=== PATIENT | female | born 1975 | race Caucasian/White ===

== ENCOUNTER 2019-04-01 22:37 | Observation (INO) ==
[2019-04-01 23:06] LABS: Basophils # 0.1 K/mm3 (0-0.2); Basophils % 0.5 % (0.1-2.0); Eosinophils # 0.2 K/mm3 (0.0-0.4); Eosinophils % 1.3 % (0.1-12.0); Hematocrit 52.4 % (37.0-47.0); Hemoglobin 16.9 g/dL (12.2-16.2); Lymphocytes # 4.4 K/mm3 (0.7-4.5); Lymphocytes % 28.7 % (10-50); Mean Corpuscular HGB Conc 32.2 g/dL (31.8-35.4); Mean Corpuscular Volume 89.2 fl (81-99); Mean Platelet Volume 8.1 fl (7.4-10.4); Monocytes # 0.6 K/mm3 (0.1-1.0); Monocytes % 3.8 % (1.7-9.3); Neutrophils % 65.6 % (37.0-80.0); Platelet Count 343 K/mm3 (142-424); Red Blood Count 5.88 M/mm3 (4.20-5.40); Red Cell Distribution Width 12.7 % (11.5-17.5); White Blood Count 15.2 K/mm3 (4.8-10.8)
[2019-04-01 23:15] LABS: ABG Base Excess -5.8 mmol/L (-2.4-2.3); ABG HCO3 17.8 mmhg (22.0-26.0); ABG Oxygen Saturation 98 % (90-100); ABG PCO2 24.6 mmhg (35.0-45.0); ABG PH 7.48 mmol/L (7.35-7.45); ABG PO2 97.7 mmhg (80-100); ABG TCO2 18.5 mmhg (23-27)
[2019-04-01 23:17] LABS: Allen's Test Acceptable; Oxygen ROOM AIR %
--- NOTE | 2019-04-01 23:22 | Emergency Department Note ---
ED Disposition Clinical Impression: Severe sepsis, Tobacco use Community acquired pneumonia Qualifiers: Laterality: right Lung location: lower lobe of lung Qualified Code(s): J18.1 - Lobar pneumonia, unspecified organism Obesity Qualifiers: Obesity type: due to excess calories Obesity classification: adult class 3 (BMI >= 40) Serious obesity comorbidity presence: with serious comorbidity Body mass index: BMI 40.0-44.9 Qualified Code(s): E66.01 - Morbid (severe) obesity due to excess calories; Z68.41 - Body mass index (BMI) 40.0-44.9, adult Diabetes Qualifiers: Diabetes mellitus type: type 2 Diabetes mellitus fci insulin use: unspecified fci insulin use status Diabetes mellitus complication status: with other specified complication Qualified Code(s): E11.69 - Type 2 diabetes mellitus with other specified complication Disposition: Admitted As Inpatient Condition on Discharge: Good Referrals: Provider,Referral, MD [Primary Care Provider] - - Critical Care Critical Care Time: No Attestation: On 04/01/19, the high probability of a clinically significant, sudden or life threatening deterioration of the following system(s) required my full and direct attention, intervention and personal management. The time I documented below is in addition to time spent performing reported procedures but includes the following listed in this critical care notation. Medical Decision Making - Medical Records Medical records reviewed: Yes: I reviewed the patient's medical records. - Mikey Inquiry Pt receiving controlled substance: No Vital Signs: 04/01/19 22:38 04/01/19 23:11 04/01/19 23:28 Temperature 97.6 F 98.2 F Temperature Source Oral Oral Pulse Rate [Right Brachial] 146 H 127 H 120 H Respiratory Rate 15 17 18 Blood Pressure [Right Arm] 164/96 H 120/85 Blood Pressure Mean [Right Arm] 118 96 02 Sat by Pulse Oximetry 98 97 99 Oxygen Delivery Method Room Air Room Air Room Air 04/01/19 23:43 Temperature 98.8 F Temperature Source Oral Pulse Rate [Right Brachial] 132 H Respiratory Rate 15 Blood Pressure [Right Arm] 117/87 Blood Pressure Mean [Right Arm] 97 02 Sat by Pulse Oximetry 96 Oxygen Delivery Method Room Air - Lab Data Lab results reviewed: Yes: I reviewed the patient's lab results. Lab Results 04/01/19 22:52: WBC 15.2 H, RBC 5.88 H, Hgb 16.9 H, Hct 52.4 H, MCV 89.2, MCH 28.7, MCHC 32.2, RDW 12.7, Plt Count 343, MPV 8.1, Neut % (Auto) 65.6, Lymph % (Auto) 28.7, [place] % (Auto) 3.8, Eos % (Auto) 1.3, Baso % (Auto) 0.5, Neut # (Auto) 10.0 H, Lymph # (Auto) 4.4, [place] # (Auto) 0.6, Eos # (Auto) 0.2, Baso # (Auto) 0.1, Total Counted 100, Neutrophils % (Manual) 70, Band Neutrophils % 5.0, Lymphocytes % (Manual) 23, Monocytes % (Manual) 2, Platelet Estimate Normal, RBC Morphology Normal 04/01/19 22:52: Sodium 135 L, Potassium 3.8, Chloride 98, Carbon Dioxide 23, Anion Gap 17.8 H, BUN 13, Creatinine 1.07 H, Estimated Creat Clear 128, Estimated GFR 56 L, Est GFR ( Amer) 68, Glucose 371 H, Calcium 9.6, Total Bilirubin 0.5, AST 9 L, ALT 34, Alkaline Phosphatase 97, Troponin I < 0.02, Total Protein 7.7, Albumin 3.5, Globulin 4.2 H, Albumin/Globulin Ratio 0.8 L 04/01/19 22:52: Lactate 3.3 H 04/01/19 22:52: Serum HCG, Qual Negative 04/01/19 22:59: Specimen Source Right radial, O2 % Room air, ABG pH 7.48 H, ABG pCO2 24.6 L, ABG pO2 97.7, ABG HCO3 17.8 L, ABG Total CO2 18.5 L, ABG O2 Saturation 98, ABG Base Excess -5.8 L, Maximo Test Acceptable Result diagrams: 04/01/19 22:52 04/01/19 22:52 Orders (Tests/Meds): ED MEDICATIONS Generic Name Dose Route Start Last Admin Trade Name Freq PRN Reason Stop Dose Admin Sodium Chloride 1,000 mls @ 999 mls/hr 04/01/19 23:00 04/01/19 23:03 Sod Chlor 0.9% 1000ml Bag IV 04/02/19 00:00 999 mls/hr .Q1H1M TONY Administration Sodium Chloride 1,000 mls @ 999 mls/hr 04/01/19 23:00 04/01/19 23:02 Sod Chlor 0.9% 1000ml Bag IV 04/02/19 00:00 Not Given .Q1H1M TONY Ceftriaxone Sodium 1 gm/ 50 mls @ 100 mls/hr 04/01/19 23:45 04/01/19 23:45 Sodium Chloride IV 04/15/19 23:44 100 mls/hr Q24H TONY Administration Protocol Azithromycin 500 mg/ Sodium 250 mls @ 250 mls/hr 04/01/19 23:45 Chloride IV 04/15/19 23:44 Q24H TONY Protocol Sodium Chloride 3 ml 04/01/19 23:48 Sodium Chloride 3% 15ml [facility] 05/01/19 23:47 ONCE PRN INDUCE SPUTUM COLLECTION Discontinued Medications Generic Name Dose Route Start Last Admin Trade Name Freq PRN Reason Stop Dose Admin Albuterol/Ipratropium 3 ml 04/01/19 22:48 04/01/19 23:02 Duoneb 3ml [facility] 04/01/19 22:49 3 ml ONCE ONE Administration Methylprednisolone Sodium Succinate 125 mg 04/01/19 22:48 04/01/19 23:02 Solu-Medrol 125mg/2ml Vial IV 04/01/19 22:49 125 mg ONCE ONE Administration ORDERS Category Date Time Status XR chest 2V Stat Exams 04/01/19 22:46 Taken Hemoglobin A1C Stat Lab 04/01/19 22:52 Received Blood Culture Stat Micro 04/01/19 22:52 Received Sputum Culture & Gram Stain Stat Micro 04/01/19 23:48 Ordered ECG Request by /Nse Stat Y 04/01/19 22:46 Ordered - Radiology Data #1 Image(s): Chest Image Reviewed: Yes I reviewed the patient's radiology image Preliminary Findings: Abnormal (prob rt lower lobe) - ECG Data Tracing #1 Arrhythmias present: sinus tach Ischemic changes: non-specific ST-T wave changes - Physician Consults Physician Consulted: tati Reason -: Admission Resp/SOB HPI - General Chief Complaint: Shortness of Breath/Dyspnea Stated Complaint: SOB&Pain in back,weakness Time Seen by Provider: 04/01/19 23:00 Mode of Arrival: Ambulatory Source of Information: Patient, Relative, Medical Record Limitations: No Limitations Description of Symptoms (Recalled from ER Triage Doc. by RN): Reports SOB all weekend that has progressively gotten worse. Pt reports back pain and weakness as well. 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 -does use tob and has borderline diabetes MD Complaint: shortness of breath, cough Onset (ago): day(s) Severity: moderate Associated symptoms: cough Treatment prior to arrival: none - Related Data Home oxygen amount: none Home Medications Medication Instructions Recorded Confirmed No Known Home Medications 04/01/19 04/01/19 Allergies Allergy/AdvReac Type Severity Reaction Status Date / Time No Known Allergies Allergy Verified 06/12/18 10:19 [facility] History - Hepatitis A Screen Drug use history?: No High risk sexual behaviors?: No History of sexually transmitted infection?: No Currently employed?: No Childcare worker?: No Do you have indoor plumbing?: Yes Do you have electricity?: Yes Attestation statement:: This patient has been screened for Hepatitis A risk factors. I have reviewed the patient's past medical history: Yes Medical History: Denies:: Cancer, Diabetes Mellitus Type 1, Diabetes Mellitus Type 2, MRSA Laterality Cases: Bilateral: Myringotomy (Ear Tubes), Tonsillectomy Amputation: No - Social History Smoking Status: Current every day smoker Tobacco Type: cigarettes # Packs/Day (cigarettes): 1 Alcohol Intake: never Occupational Status: employed Housing: house Household Members: spouse, children ROS Obtained: Yes All systems reviewed & no additional complaints - Constitutional Constitutional: Reports as per HPI, Reports fatigue, Denies headache(s) - Eyes Eyes: Denies change in vision - ENT Ears, Nose, Mouth, and Throat: Denies sore throat - Cardiovascular Cardiovascular: Denies chest pain, Reports dyspnea - Respiratory Respiratory: Yes as per HPI, Yes cough, Yes non-productive cough, No coughing up blood - Gastrointestinal Gastrointestingal: Denies: vomiting - Genitourinary Female Genitourinary: Denies hematuria - Musculoskeletal Musculoskeletal: Denies joint pain, Denies neck pain - Integumentary/Breasts Skin/Breast: Denies rash - Neurologic Neurologic: Denies seizure-like activity Physical Exam - General General appearance: alert - Head Head exam: normocephalic - Eye Eye exam: Present: PERRL, EOMI - ENT ENT exam: Present: mucous membranes moist - Neck Neck exam: Present: trachea midline - Respiratory Respiratory exam: Present: normal lung sounds bilaterally. Absent: respiratory distress - Cardiovascular Cardiovascular exam: Present: tachycardia, systolic murmur. Absent: rubs - Abdominal Exam Abdominal exam: Present: soft - Extremities Exam Extremities exam: Present: full ROM. Absent: calf tenderness - Neurological Exam Neurological exam: Present: alert, oriented X3, CN II-XII intact - Psychiatric Psychiatric exam: Present: normal affect - Skin Skin exam: Absent: rash
[2019-04-01 23:24] LABS: Alanine Aminotransferase 34 U/L (12-78); Albumin Level 3.5 gm/dL (3.4-5.0); Albumin/Globulin Ratio 0.8 (1.1-1.8); Alkaline Phosphatase 97 U/L (46-116); Anion Gap 17.8 mEq/L (5-15); Aspartate Amino Transferase 9 U/L (15-37); Bilirubin,Total 0.5 mg/dL (0.2-1.0); Blood Urea Nitrogen 13 mg/dL (7-18); Calcium 9.6 mg/dL (8.5-10.1); Carbon Dioxide 23 mmol/L (21.0-32.0); Chloride 98 mmol/L (98-107); Globulin 4.2 gm/dl (1.3-3.2); Glucose 371 mg/dL (74-106); Sodium 135 mmol/L (136-145); Total Protein,Serum 7.7 gm/dL (6.4-8.2)
[2019-04-01 23:34] LABS: Lymphocytes % 23 % (10-50); Monocytes % 2 % (2-9); Neutrophils % 70 % (42-76); RBC Morphology Normal; Total Cells Counted 100
[2019-04-02 05:16] LABS: Basophils # 0.1 K/mm3 (0-0.2); Basophils % 0.3 % (0.1-2.0); Eosinophils # 0.1 K/mm3 (0.0-0.4); Eosinophils % 0.5 % (0.1-12.0); Hematocrit 49.6 % (37.0-47.0); Hemoglobin 15.9 g/dL (12.2-16.2); Lymphocytes # 1.4 K/mm3 (0.7-4.5); Lymphocytes % 9.2 % (10-50); Mean Platelet Volume 8.3 fl (7.4-10.4); Monocytes # 0.2 K/mm3 (0.1-1.0); Monocytes % 1.1 % (1.7-9.3); Neutrophils # 13.5 K/mm3 (1.8-7.8); Neutrophils % 88.9 % (37.0-80.0); Platelet Count 332 K/mm3 (142-424); Red Blood Count 5.46 M/mm3 (4.20-5.40); Red Cell Distribution Width 12.7 % (11.5-17.5); White Blood Count 15.2 K/mm3 (4.8-10.8)
[2019-04-02 05:24] LABS: Anion Gap 16.2 mEq/L (5-15); Blood Urea Nitrogen 11 mg/dL (7-18); Calcium 9.2 mg/dL (8.5-10.1); Carbon Dioxide 24 mmol/L (21.0-32.0); Chloride 98 mmol/L (98-107); Chol/HDL Ratio 7.2 (1-3.5); Cholesterol 229 mg/dL (140-200); HDL Cholesterol 32 mg/dL (29-89); LDL Cholesterol 127 mg/dL (0-130); Sodium 134 mmol/L (136-145); Triglycerides 351 mg/dL (30-200); VLDL Cholesterol 70 mg/dL (0-40)
[2019-04-02 05:25] LABS: Glucose 407 mg/dL (74-106)
--- NOTE | 2019-04-02 07:38 | Pharmacy Consult Notes ---
[facility] Pharmacy VTE Monitoring - Patient Demographics Admission date: 04/01/19 Report Date: 04/02/19 Time: 07:37 Allergies/Adverse Reactions: Patient Allergies No Known Allergies Allergy (Verified 06/12/18 10:19) Height: 1.73 m Weight: 120.287 kg Patient Problems: Current Active Problems (Updated 04/02/19 @ 00:05 by Homero Johnson MD) Community acquired pneumonia (Acute) Severe sepsis (Acute) Obesity (Acute) Tobacco use (Acute) Diabetes (Acute) - VTE Risk Labs: VTE Related Lab Results Hgb 15.9 g/dL (12.2-16.2) 04/02/19 05:00 Hct 49.6 % (37.0-47.0) H 04/02/19 05:00 Plt Count 332 K/mm3 (142-424) 04/02/19 05:00 BUN 11 mg/dL (7-18) 04/02/19 05:00 Creatinine 1.04 mg/dL (0.55-1.02) H 04/02/19 05:00 Estimated Creat Clear 134 mL/min (50-200) 04/02/19 05:00 Was VTE Risk Assessment Performed: Yes VTE Score: 3 VTE Risk Level: Low Risk - Prophylaxis VTE Prophylaxis Ordered?: Yes Types of VTE Prophylaxis: TEDS Knee High Location of Applied Device: Bilateral Lower Extremeties - VTE Diagnosis Confirmed Treatment or plan recommended: Continue Current Treatment
--- NOTE | 2019-04-02 08:10 | History & Physical Report ---
*Admission Date: 04/01/19 <Nicci Walsh 04/02/19 08:16> *Chief complaint: Shortness of breath <Nicci Walsh 04/02/19 08:16> *History of present illness: Ms. Sales is a 44-year old female who is otherwise been healthy who began feeling poorly 45 days ago. She states all she wanted to do sleep. She stayed in the bed most of the time. She continued to eat and drink normally. On 03/30 she began to feel short of breath. This continued throughout the next day. She developed a nonproductive cough as well. She presented to the emergency room for further evaluation and treatment. She denies fever, head congestion, and chest congestion. With evaluation in the emergency room patient was felt to have a pneumonia and was admitted for further evaluation and treatment. White blood cell count was found to be elevated. 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 She is normally healthy and does not remember when she last saw physician. Noted with evaluation in the emergency room that her A1c was 9.9. She takes no medication and does not use inhalers on a regular basis. <Nicci Walsh 04/02/19 08:16> [facility] History Medical History: Reports:: Diabetes Mellitus Type 2, Hyperlipidemia, Hyp ertension Denies:: Atherosclerotic Heart Disease, Cancer, Diabetes Mellitus Type 1, MRSA <Nicci Walsh 04/02/19 08:16> *Have you ever received a pneumonia vaccine?: No <Nicci Walsh 04/02/19 08:16> *Have you received a flu vaccine this season?: No <Nicci Walsh 04/02/19 08:16> Other Medical History: Reports: Arthritis <Nicci Walsh 04/02/19 08:16> Laterality Cases: Bilateral: Myringotomy (Ear Tubes), Tonsillectomy <Nicci Walsh 04/02/19 08:16> Other Surgeries: Yes: Cholecystectomy, <Nicci Walsh 04/02/19 08:16> Amputation: No <Nicci Walsh 04/02/19 08:16> Fractures: No <Nicci Walsh 04/02/19 08:16> - *Social History Educational Level: Completed High School <Nicci Walsh 04/02/19 08:16> Smoking Status: Current every day smoker <Nicci Walsh 04/02/19 08:16> Tobacco Type: cigarettes <Nicci Walsh 04/02/19 08:16> # Packs/Day (cigarettes): 2 <Nicci Walsh 04/02/19 08:16> Alcohol Intake: current <Nicci Walsh 04/02/19 08:16> Alcohol Intake Frequency:: holidays/special occasions only <Nicci Walsh 04/02/19 08:16> *Occupational Status:: employed <NicoNicci 04/02/19 08:16> Housing: house <NicoNicci 04/02/19 08:16> Household Members: spouse, children <NicoNicci 04/02/19 08:16> *Travel in the last 8 weeks: None <WalshNicci 04/02/19 08:16> - Psychiatric History Expresses thoughts of harming self/others: None <WalshNicci 04/02/19 08:16> Suicide Plan Description: No Plan <Nicci Walsh 04/02/19 08:16> Family Hx:: Cancer, Coronary Artery Disease, Diabetes, Heart Attack, Hyperlipidemia, Hypertension, Stroke <NicoNicci 04/02/19 08:16> Review of Systems - Constitutional Reports headache(s), Reports weakness, Denies chills, Denies fever(s) <WalshNicci 04/02/19 08:16> - ENT Reports nasal discharge, Denies dizziness, Denies ear pain, Denies nasal congestion, Denies sore throat <WalshNicci 04/02/19 08:16> - *Cardiovascular Reports chest pain, Reports chest pain with activity, Reports shortness of breath, Reports rapid, pounding, or irregular heartbeat <WalshNicci 04/02/19 08:16> - *Respiratory Reports cough, Reports shortness of breath, Denies excessive phlegm production, Denies coughing up blood <WalshNicci 04/02/19 08:16> - *Gastrointestinal Denies abdominal pain, Denies change in stools, Denies constipation, Denies vomiting blood, Denies nausea, Denies vomiting <Nicci Walsh - 04/02/19 08:16> - *Genitourinary Denies difficulty urinating <Nicci Walsh 04/02/19 08:16> - *Musculoskeletal Denies abnormal walking, Denies joint pain <Nicci Walsh 04/02/19 08:16> - *Neurologic Reports headache(s), Denies abnormal walking, Denies dizziness, Denies seizure- like activity <Nicci Walsh 04/02/19 08:16> Meds Home Medications Medication Instructions Recorded Confirmed Type No Known Home Medications 04/01/19 04/01/19 History <Crystal Banks Reji 04/02/19 10:47> Allergies Allergy/AdvReac Type Severity Reaction Status Date / Time No Known Allergies Allergy Verified 06/12/18 10:19 <Crystal Banks Reji 04/02/19 10:47> Exam Vital signs and Labs for Last 24 Hours: Temp Pulse Resp BP Pulse Ox 98.8 F 99 H 20 154/90 H 93 L 04/02/19 08:00 04/02/19 10:02 04/02/19 08:00 04/02/19 08:00 04/02/19 08:00 Laboratory Results - last 24 hr 04/01/19 22:52: WBC 15.2 H, RBC 5.88 H, Hgb 16.9 H, Hct 52.4 H, MCV 89.2, MCH 28.7, MCHC 32.2, RDW 12.7, Plt Count 343, MPV 8.1, Neut % (Auto) 65.6, Lymph % (Auto) 28.7, [place] % (Auto) 3.8, Eos % (Auto) 1.3, Baso % (Auto) 0.5, Neut # (Auto) 10.0 H, Lymph # (Auto) 4.4, [place] # (Auto) 0.6, Eos # (Auto) 0.2, Baso # (Auto) 0.1, Total Counted 100, Neutrophils % (Manual) 70, Band Neutrophils % 5.0, Lymphocytes % (Manual) 23, Monocytes % (Manual) 2, Platelet Estimate Normal, RBC Morphology Normal 04/01/19 22:52: Sodium 135 L, Potassium 3.8, Chloride 98, Carbon Dioxide 23, Anion Gap 17.8 H, BUN 13, Creatinine 1.07 H, Estimated Creat Clear 128, Estimated GFR 56 L, Est GFR ( Amer) 68, Glucose 371 H, Calcium 9.6, Total Bilirubin 0.5, AST 9 L, ALT 34, Alkaline Phosphatase 97, Troponin I < 0.02, Total Protein 7.7, Albumin 3.5, Globulin 4.2 H, Albumin/Globulin Ratio 0.8 L 04/01/19 22:52: Lactate 3.3 H 04/01/19 22:52: Serum HCG, Qual Negative 04/01/19 22:52: Hemoglobin A1c 9.9 H 04/01/19 22:59: Specimen Source Right radial, O2 % Room air, ABG pH 7.48 H, ABG pCO2 24.6 L, ABG pO2 97.7, ABG HCO3 17.8 L, ABG Total CO2 18.5 L, ABG O2 Saturation 98, ABG Base Excess -5.8 L, Maximo Test Acceptable 04/02/19 03:00: Troponin I < 0.02 04/02/19 03:00: Lactate 2.8 H 04/02/19 05:00: WBC 15.2 H, RBC 5.46 H, Hgb 15.9, Hct 49.6 H, MCV 91.0, MCH 29.1, MCHC 32.0, RDW 12.7, Plt Count 332, MPV 8.3, Neut % (Auto) 88.9 H, Lymph % (Auto) 9.2 L, [place] % (Auto) 1.1 L, Eos % (Auto) 0.5, Baso % (Auto) 0.3, Neut # (Auto) 13.5 H, Lymph # (Auto) 1.4, [place] # (Auto) 0.2, Eos # (Auto) 0.1, Baso # (Auto) 0.1 04/02/19 05:00: Sodium 134 L, Potassium 4.2, Chloride 98, Carbon Dioxide 24, Anion Gap 16.2 H, BUN 11, Creatinine 1.04 H, Estimated Creat Clear 134, Estimated GFR 58 L, Est GFR ( Amer) 70, Glucose 407 H*, Calcium 9.2, Magnesium 1.6, Troponin I < 0.02, Triglycerides 351 H, Cholesterol 229 H, LDL Cholesterol 127, VLDL Cholesterol 70 H, HDL Cholesterol 32, Cholesterol/HDL Ratio 7.2 H 04/02/19 05:00: Lactate 2.5 H 04/02/19 05:31: POC Glucose 375 H* <Crystal Banks - 04/02/19 10:47> Temp Pulse Resp BP Pulse Ox 97.9 F 117 H 20 161/100 H 97 04/02/19 04:09 04/02/19 04:09 04/02/19 07:52 04/02/19 04:09 04/02/19 07:52 Laboratory Results - last 24 hr 04/01/19 22:52: WBC 15.2 H, RBC 5.88 H, Hgb 16.9 H, Hct 52.4 H, MCV 89.2, MCH 28.7, MCHC 32.2, RDW 12.7, Plt Count 343, MPV 8.1, Neut % (Auto) 65.6, Lymph % (Auto) 28.7, [place] % (Auto) 3.8, Eos % (Auto) 1.3, Baso % (Auto) 0.5, Neut # (Auto) 10.0 H, Lymph # (Auto) 4.4, [place] # (Auto) 0.6, Eos # (Auto) 0.2, Baso # (Auto) 0.1, Total Counted 100, Neutrophils % (Manual) 70, Band Neutrophils % 5.0, Lymphocytes % (Manual) 23, Monocytes % (Manual) 2, Platelet Estimate Normal, RBC Morphology Normal 04/01/19 22:52: Sodium 135 L, Potassium 3.8, Chloride 98, Carbon Dioxide 23, Anion Gap 17.8 H, BUN 13, Creatinine 1.07 H, Estimated Creat Clear 128, Estimated GFR 56 L, Est GFR ( Amer) 68, Glucose 371 H, Calcium 9.6, Total Bilirubin 0.5, AST 9 L, ALT 34, Alkaline Phosphatase 97, Troponin I < 0.02, Total Protein 7.7, Albumin 3.5, Globulin 4.2 H, Albumin/Globulin Ratio 0.8 L 04/01/19 22:52: Lactate 3.3 H 04/01/19 22:52: Serum HCG, Qual Negative 04/01/19 22:52: Hemoglobin A1c 9.9 H 04/01/19 22:59: Specimen Source Right radial, O2 % Room air, ABG pH 7.48 H, ABG pCO2 24.6 L, ABG pO2 97.7, ABG HCO3 17.8 L, ABG Total CO2 18.5 L, ABG O2 Saturation 98, ABG Base Excess -5.8 L, Maximo Test Acceptable 04/02/19 03:00: Troponin I < 0.02 04/02/19 03:00: Lactate 2.8 H 04/02/19 05:00: WBC 15.2 H, RBC 5.46 H, Hgb 15.9, Hct 49.6 H, MCV 91.0, MCH 29.1, MCHC 32.0, RDW 12.7, Plt Count 332, MPV 8.3, Neut % (Auto) 88.9 H, Lymph % (Auto) 9.2 L, [place] % (Auto) 1.1 L, Eos % (Auto) 0.5, Baso % (Auto) 0.3, Neut # (Auto) 13.5 H, Lymph # (Auto) 1.4, [place] # (Auto) 0.2, Eos # (Auto) 0.1, Baso # (Auto) 0.1 04/02/19 05:00: Sodium 134 L, Potassium 4.2, Chloride 98, Carbon Dioxide 24, Anion Gap 16.2 H, BUN 11, Creatinine 1.04 H, Estimated Creat Clear 134, Estimated GFR 58 L, Est GFR ( Amer) 70, Glucose 407 H*, Calcium 9.2, Magnesium 1.6, Troponin I < 0.02, Triglycerides 351 H, Cholesterol 229 H, LDL Cholesterol 127, VLDL Cholesterol 70 H, HDL Cholesterol 32, Cholesterol/HDL Ratio 7.2 H 04/02/19 05:00: Lactate 2.5 H 04/02/19 05:31: POC Glucose 375 H* <Nicci Walsh - 04/02/19 08:16> I & O for Last 24 hours: Intake & Output 03/30/19 03/31/19 04/01/19 04/02/19 11:59 11:59 11:59 11:59 Intake Total 1160 / 1160 Output Total 1400 / 1400 Balance -240 / -240 Weight 265 lb 3 oz <Crystal Banks - 04/02/19 10:47> Intake & Output 03/30/19 03/31/19 04/01/19 07/02/19 11:59 11:59 11:59 11:59 Intake Total 1160 / 1160 Output Total 800 / 800 Balance 360 / 360 Weight 265 lb 3 oz <Nicci Walsh 04/02/19 08:16> Radiology Reports for the Last 24 Hours: 04/01/2019 chest x-ray IMPRESSION: Negative chest, no acute finding <Nicci Walsh 04/02/19 08:16> - Constitutional no acute distress <Nicci Walsh 04/02/19 08:16> Comments: Sitting up in the bed eating her breakfast. Appears comfortable. <Nicci Walsh 04/02/19 08:16> - *Routine HEENT Exam Head: Present: normocephalic, atraumatic <Nicci Walsh 04/02/19 08:16> Eye: Present: PERRL. Absent: conjunctival icterus, scleral injection <Nicci Walsh 04/02/19 08:16> ENT: Present: mucous membranes moist, oropharynx clear <Nicci Walsh 04/02/19 08:16> - *Routine Neck Exam Present: supple. Absent: carotid bruit, lymphadenopathy, thyromegaly <Nicci Walsh 04/02/19 08:16> - *Routine Respiratory Exam Present: CTA bilaterally (Anteriorly and posteriorly) <Nicci Walsh 04/02/19 08:16> - *Routine Cardiovascular Exam Present: RRR <Nicci Walsh 04/02/19 08:16> - *Routine Abdominal Exam Present: soft, normoactive bowel sounds. Absent: tenderness, distended <Nicci Walsh 04/02/19 08:16> - *Routine Extremities Exam Present: pulses intact. Absent: edema, calf tenderness <Nicci Walsh 04/02/19 08:16> - *Routine Neurological Exam Present: alert, oriented X3 <Nicci Walsh 04/02/19 08:16> Assessment and Plan (1) Community acquired pneumonia Current visit: Yes Status: Acute Qualifiers: Laterality: right Lung location: lower lobe of lung Qualified Code(s): J18.1 - Lobar pneumonia, unspecified organism Category: Medical Code(s): J18.9 - Pneumonia, unspecified organism (2) Diabetes Current visit: Yes Status: Acute Qualifiers: Diabetes mellitus type: type 2 Diabetes mellitus watermaster insulin use: unspecified mcfp insulin use status Diabetes mellitus complication status: with other specified complication Qualified Code(s): E11.69 - Type 2 diabetes mellitus with other specified complication Category: Medical Code(s): E11.9 - Type 2 diabetes mellitus without complications (3) Obesity Current visit: Yes Status: Acute Qualifiers: Obesity type: due to excess calories Obesity classification: adult class 3 (BMI >= 40) Serious obesity comorbidity presence: with serious comorbidity Body mass index: BMI 40.0-44.9 Qualified Code(s): E66.01 - Morbid (severe) obesity due to excess calories; Z68.41 - Body mass index (BMI) 40.0-44.9, adult Category: Medical Code(s): E66.9 - Obesity, unspecified (4) Tobacco use Current visit: Yes Status: Acute Category: Medical Code(s): Z72.0 - Tobacco use <Nicci Walsh - 04/02/19 08:04> (1) Sepsis Current visit: Yes Status: Acute Category: Medical Code(s): A41.9 - Sepsis, unspecified organism (2) Community acquired pneumonia Current visit: Yes Status: Acute Qualifiers: Laterality: right Lung location: lower lobe of lung Qualified Code(s): J18.1 - Lobar pneumonia, unspecified organism Category: Medical Code(s): J18.9 - Pneumonia, unspecified organism (3) Obesity Current visit: Yes Status: Acute Qualifiers: Obesity type: due to excess calories Obesity classification: adult class 3 (BMI >= 40) Serious obesity comorbidity presence: with serious comorbidity Body mass index: BMI 40.0-44.9 Qualified Code(s): E66.01 - Morbid (severe) obesity due to excess calories; Z68.41 - Body mass index (BMI) 40.0-44.9, adult Category: Medical Code(s): E66.9 - Obesity, unspecified (4) Tobacco use Current visit: Yes Status: Acute Category: Medical Code(s): Z72.0 - Tobacco use (5) T2DM (type 2 diabetes mellitus) Current visit: Yes Status: Acute Category: Medical Code(s): E11.9 - Type 2 diabetes mellitus without complications (6) Hyperlipidemia Current visit: Yes Status: Acute Category: Medical Code(s): E78.5 - Hyperlipidemia, unspecified <DarrenNasrina - 04/02/19 10:47> - Assessment and plan all Dx Assessment and Plan for all problems:: Sepsis secondary to community-acquired pneumonia of right lobe, cultures pending -sepsis resolved on day 2 of admission, on IV Rocephin and azithromycin, got adequate IV fluids. Acute hypoxic respiratory failure -resolved on day 2 of admission after sepsis was resolved. Currently on room air. COPD exacerbation -on IV antibiotics, p.o. steroids, neb treatments New onset type 2 diabetes mellitus with A1c of 9.9 -holding off metformin inpatient, started on Januvia, Levemir nightly and sliding scale insulin. Hyperlipidemia -started on a high intensity statin. Tobacco dependence -on nicotine patch Morbid obesity -education provided about weight loss, patient is interested in starting exercise every day after discharge. Disposition: Possible discharge home tomorrow if she maintains her oxygen status. She will need p.o. antibiotics, steroids, atorvastatin, p.o. metformin, Januvia, possibly Basaglar and NovoLog prior to discharge. Patient is to follow-up with me next Monday in the clinic. <Crystal Banks - 04/02/19 10:47> We will add scheduled duo nebs. Will continue with IV antibiotics. <Nicci Walsh - 04/02/19 08:16>
--- NOTE | 2019-04-03 08:20 | Progress Note ---
<Nicci Walsh - Last Filed: 04/03/19 08:17> Internal Medicine - PN: Subj *Date: 04/03/19 *Time: 08:17 Interval history: Patient feels better and is anxious to go home. She walked around hallways x8 with some shortness of breath. She does have a cough which is mostly nonproductive. She is eating without difficulty. 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 She does have a machine at home. Exam Vital signs and Labs for Last 24 Hours: Temp Pulse Resp BP Pulse Ox 98.7 F 101 H 18 160/99 H 97 04/03/19 08:00 04/03/19 08:00 04/03/19 08:00 04/03/19 08:00 04/03/19 08:00 Laboratory Results - last 24 hr 04/02/19 11:06: POC Glucose 388 H* 04/02/19 12:25: Mycoplasma pneumon IgM Non-reactive 04/02/19 16:04: POC Glucose 353 H* 04/02/19 20:12: POC Glucose 372 H* 04/03/19 05:43: POC Glucose 263 H I & O for Last 24 hours: Intake & Output 03/31/19 04/01/19 04/02/19 04/03/19 11:59 11:59 11:59 11:59 Intake Total 1520 / 1520 2773 / 2773 Output Total 1700 / 1700 2500 / 2500 Balance -180 / -180 273 / 273 Weight 265 lb 3 oz 270 lb 4.8 oz - Constitutional no acute distress Comments: Sitting up in a chair by the window. Appears comfortable. Infrequent dry cough - *Routine Respiratory Exam Present: CTA bilaterally (Anteriorly and posteriorly) - *Routine Cardiovascular Exam Present: RRR - *Routine Extremities Exam Absent: edema, calf tenderness Assessment and Plan (1) Sepsis Current visit: Yes Status: Acute Category: Medical Code(s): A41.9 - Sepsis, unspecified organism (2) Community acquired pneumonia Current visit: Yes Status: Acute Qualifiers: Laterality: right Lung location: lower lobe of lung Qualified Code(s): J18.1 - Lobar pneumonia, unspecified organism Category: Medical Code(s): J18.9 - Pneumonia, unspecified organism (3) Obesity Current visit: Yes Status: Acute Qualifiers: Obesity type: due to excess calories Obesity classification: adult class 3 (BMI >= 40) Serious obesity comorbidity presence: with serious comorbidity Body mass index: BMI 40.0-44.9 Qualified Code(s): E66.01 - Morbid (severe) obesity due to excess calories; Z68.41 - Body mass index (BMI) 40.0-44.9, adult Category: Medical Code(s): E66.9 - Obesity, unspecified (4) Tobacco use Current visit: Yes Status: Acute Category: Medical Code(s): Z72.0 - Tobacco use (5) T2DM (type 2 diabetes mellitus) Current visit: Yes Status: Acute Category: Medical Code(s): E11.9 - Type 2 diabetes mellitus without complications (6) Hyperlipidemia Current visit: Yes Status: Acute Category: Medical Code(s): E78.5 - Hyperlipidemia, unspecified - Assessment and plan all Dx Assessment and Plan for all problems:: Will be discharged home today on antibiotics. See discharge orders <Crystal Banks - Last Filed: 04/03/19 09:13> Internal Medicine - PN: Subj *Date: 04/03/19 *Time: 09:12 Exam Vital signs and Labs for Last 24 Hours: Temp Pulse Resp BP Pulse Ox 98.7 F 101 H 18 160/99 H 97 04/03/19 08:00 04/03/19 08:00 04/03/19 08:00 04/03/19 08:00 04/03/19 08:12 Laboratory Results - last 24 hr 04/02/19 11:06: POC Glucose 388 H* 04/02/19 12:25: Mycoplasma pneumon IgM Non-reactive 04/02/19 16:04: POC Glucose 353 H* 04/02/19 20:12: POC Glucose 372 H* 04/03/19 05:43: POC Glucose 263 H I & O for Last 24 hours: Intake & Output 03/31/19 04/01/19 04/02/19 04/03/19 11:59 11:59 11:59 11:59 Intake Total 1520 / 1520 3253 / 3253 Output Total 1700 / 1700 2500 / 2500 Balance -180 / -180 753 / 753 Weight 265 lb 3 oz 270 lb 4.8 oz Assessment and Plan (1) Sepsis Current visit: Yes Status: Acute Category: Medical Code(s): A41.9 - Sepsis, unspecified organism (2) Community acquired pneumonia Current visit: Yes Status: Acute Qualifiers: Laterality: right Lung location: lower lobe of lung Qualified Code(s): J18.1 - Lobar pneumonia, unspecified organism Category: Medical Code(s): J18.9 - Pneumonia, unspecified organism (3) Obesity Current visit: Yes Status: Acute Qualifiers: Obesity type: due to excess calories Obesity classification: adult class 3 (BMI >= 40) Serious obesity comorbidity presence: with serious comorbidity Body mass index: BMI 40.0-44.9 Qualified Code(s): E66.01 - Morbid (severe) obesity due to excess calories; Z68.41 - Body mass index (BMI) 40.0-44.9, adult Category: Medical Code(s): E66.9 - Obesity, unspecified (4) Tobacco use Current visit: Yes Status: Acute Category: Medical Code(s): Z72.0 - To bacco use (5) T2DM (type 2 diabetes mellitus) Current visit: Yes Status: Acute Category: Medical Code(s): E11.9 - Type 2 diabetes mellitus without complications (6) Hyperlipidemia Current visit: Yes Status: Acute Category: Medical Code(s): E78.5 - Hyperlipidemia, unspecified - Assessment and plan all Dx Assessment and Plan for all problems:: DC home today with abx and T2DM medications. F/u with me next monday in office.
--- NOTE | 2019-04-03 14:59 | Discharge Summary ---
General - General Admission date:: 04/02/19 <Crystal Banks - 04/05/19 11:40> 04/02/19 <Christina Quiroga - 04/03/19 15:17> Discharge date: 04/03/19 <Jasmeet Quirogaa - 04/03/19 15:17> HPI HPI: Ms. Padron is a 44-year old female who has otherwise been healthy who began feeling poorly 4-5 days ago. She states all she wanted to do was sleep. She stayed in the bed most of the time. She continued to eat and drink normally. On 03/30 she began to feel short of breath. This continued throughout the next day. She developed a nonproductive cough as well. She presented to the emergency room for further evaluation and treatment. She denies fever, head congestion, and chest congestion. With evaluation in the emergency room, patient was felt to have a pneumonia and was admitted for further evaluation and treatment. White blood cell count was found to be elevated. 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 She is normally healthy and does not remember when she last saw a physician. Noted with evaluation in the emergency room that her A1c was 9.9. She takes no medication and does not use inhalers on a regular basis. <JunaidChristina - 04/03/19 15:17> Hospital Course Hospital Course: Patient did not need any oxygen at rest or during exertion prior to discharge. Started on optimal medication regimen for her new onset DM and hyperlipidemia. Encouraged smoking cessation and exercise upon discharge. Will follow up with blood cultures. <Crystal Banks - 04/05/19 11:40> Patient's chest x-ray showed nothing acute. She was initially felt to have sepsis secondary to community-acquired pneumonia of the right lobe. Her cultures are pending and she was started on IV Rocephin and Zithromax. She was also started on IV fluids and duo nebs. She was started on Januvia for her new onset type 2 diabetes and Levemir was added nightly as well as sliding scale insulin. The patient did improve. She felt better and was anxious to go home. She was able to walk the hallways with some shortness of breath and did have a cough which was mostly nonproductive. She was discharged home on antibiotics and diabetes medication. She will follow-up in the office of [facility] next Monday. Her blood cultures are still pending. <CarlostaliaJasmeeta - 04/03/19 15:17> Objective Vital signs: Temp Pulse Resp BP Pulse Ox 98.7 F 95 H 18 160/99 H 97 04/03/19 08:00 04/03/19 10:03 04/03/19 08:00 04/03/19 08:00 04/03/19 08:12 <Crystal Banks - 04/05/19 11:40> Temp Pulse Resp BP Pulse Ox 98.7 F 95 H 18 160/99 H 97 04/03/19 08:00 04/03/19 10:03 04/03/19 08:00 04/03/19 08:00 04/03/19 08:12 <Christina Quiroga - 04/03/19 15:17> Narrative: - Constitutional no acute distress Comments: Sitting up in the bed eating her breakfast. Appears comfortable. - *Routine HEENT Exam Head: Present: normocephalic, atraumatic Eye: Present: PERRL. Absent: conjunctival icterus, scleral injection ENT: Present: mucous membranes moist, oropharynx clear - *Routine Neck Exam Present: supple. Absent: carotid bruit, lymphadenopathy, thyromegaly - *Routine Respiratory Exam Present: CTA bilaterally (Anteriorly and posteriorly) - *Routine Cardiovascular Exam Present: RRR - *Routine Abdominal Exam Present: soft, normoactive bowel sounds. Absent: tenderness, distended - *Routine Extremities Exam Present: pulses intact. Absent: edema, calf tenderness - *Routine Neurological Exam Present: alert, oriented X3 <JunaidJasmeeta - 04/03/19 15:17> Results Labs on day of discharge: Preliminary micro results at discharge 04/01/19 22:52 Blood Culture - Preliminary Blood NO GROWTH AFTER 48 HOURS 04/01/19 22:52 Blood Culture - Preliminary Blood NO GROWTH AFTER 48 HOURS <Crystal Banks - 04/05/19 11:40> Labs from last 24 hours 04/03/19 04/02/19 04/02/19 05:43 20:12 16:04 POC Glucose 263 H 372 H* 353 H* <Christina Quiroga 04/03/19 15:17> DS: Diagnosis - Discharge Diagnosis (1) Community acquired pneumonia Status: Acute (2) Sepsis Status: Acute (3) Obesity Status: Acute (4) Tobacco use Status: Acute (5) T2DM (type 2 diabetes mellitus) Status: Acute (6) Hyperlipidemia Status: Acute <Christina Quiroga - 04/03/19 14:53> (1) Community acquired pneumonia Status: Acute (2) Sepsis Status: Acute (3) Obesity Status: Acute (4) Tobacco use Status: Acute (5) T2DM (type 2 diabetes mellitus) Status: Acute (6) Hyperlipidemia Status: Acute <Crystal Banks 04/05/19 11:40> Discharge Plan - Patient Discharge Instructions ACTIVITY: Continue current activity <Christina Quiroga - 04/03/19 15:17> DIET: continue same diet <Christina Quiroga 04/03/19 15:17> Patient Instructions: DI for Pneumonia -- Adult, DI for Diabetes Type 2, DI for Sepsis -- Adult <Crystal Banks 04/05/19 11:40> Forms: <Crystal Banks 04/05/19 11:40> - Follow up Plan Follow up with: Crystla Banks MD [Staff Physician] - 04/08/19 9:00 am (on MondayApril 08) <Crystal Banks 04/05/19 11:40> Disposition: Home, Self-Care <Crystal Banks 04/05/19 11:40> Home Medications: Home Medications Medication Instructions Recorded Confirmed Type Atorvastatin Calcium [Lipitor 40mg 40 mg PO HS 30 Days #30 tab 04/03/19 Rx Tablet] Insulin Glargine,Hum.rec.anlog 40 unit SQ HS 30 Days #1 insuln.pen 04/03/19 Rx [Basaglar Kwikpen U-100] Metformin HCl [Metformin HCl ER] 500 mg PO DAILY #30 tab.er.24h 04/03/19 Rx Nicotine [Nicoderm 21mg/24hr 21 mg TD DAILYP PRN #30 patch.td24 04/03/19 Rx patch] Sitagliptin Phosphate [Januvia 100 mg PO DAILYDM #30 tab 04/03/19 Rx 50mg Tablet] cephALEXin [Keflex 500mg Cap] 500 mg PO BID #10 cap 04/03/19 Rx predniSONE [Deltasone 20mg 40 mg PO DAILY #4 tab 04/03/19 Rx tablet] <Crystal Banks - 04/05/19 11:40> Prescriptions/Medication Reconciliation: New predniSONE [Deltasone 20mg tablet] 40 mg PO DAILY #4 tab Sitagliptin Phosphate [Januvia 50mg Tablet] 100 mg PO DAILYDM #30 tab Atorvastatin Calcium [Lipitor 40mg Tablet] 40 mg PO HS 30 Days #30 tab Metformin HCl [Metformin HCl ER] 500 mg PO DAILY #30 tab.er.24h Nicotine [Nicoderm 21mg/24hr patch] 21 mg TD DAILYP PRN #30 patch.td24 PRN Reason: Nicotine Cravings Insulin Glargine,Hum.rec.anlog [Chema White U-100] 40 unit SQ HS 30 Days #1 insuln.pen cephALEXin [Keflex 500mg Cap] 500 mg PO BID #10 cap <Crystal Banks - 0 04/05/19 11:40>
== END 2019-04-03 10:25 | disposition home or self-care (01) ==
LOC: ER 22:37 → 2ND 23:56 → INTOOBSV 04-02 00:33 → 2ND 04-02 00:34
PROVIDERS: ADMIT Emergency Medicine; ATTEND Emergency Medicine
DX: E66.01 Morbid (severe) obesity due to excess calories; E11.9 Type 2 diabetes mellitus without complications; F17.210 Nicotine dependence, cigarettes, uncomplicated; Z68.41 Body mass index [BMI] 40.0-44.9, adult; J44.1 Chronic obstructive pulmonary disease with (acute) exacerbation; A41.9 Sepsis, unspecified organism; J18.1 Lobar pneumonia, unspecified organism; J44.0 Chronic obstructive pulmonary disease with (acute) lower respiratory infection; J96.01 Acute respiratory failure with hypoxia; I10 Essential (primary) hypertension; E78.5 Hyperlipidemia, unspecified
CPT/HCPCS: 36415; 71020; 71046; 80048; 80053; 80061; 82803; 82962; 83036; 83605; 83735; 84484; 84703; 85007; 85025; 86713; 86738; 87040; 87899; 93005; 94640; 94761; 96365; 96367; 96375; 99285; G0378; J0456

== ENCOUNTER 2020-08-04 14:11 | Emergency (ER) | payer MEDICAID, SELFPAY ==
[2020-08-04 14:35] VITALS: BP 159/90; PULSE 108; RESP 14; TEMP 36.9; O2SAT 97; BMI 37.2
--- NOTE | 2020-08-04 15:10 | HMH.EDUTC ---
[facility] [place] Disposition Clinical Impression: Sinusitis Qualifiers: Sinusitis location: unspecified location Chronicity: acute Recurrence: non-recurrent Qualified Code(s): J01.90 - Acute sinusitis, unspecified Otitis media Qualifiers: Otitis media type: suppurative Chronicity: acute Laterality: bilateral Recurrence: non-recurrent Spontaneous tympanic membrane rupture: without spontaneous rupture Qualified Code(s): H66.003 - Acute suppurative otitis media without spontaneous rupture of ear drum, bilateral Disposition: Home, Self-Care Condition on Discharge: Good Instructions: Sinusitis, DI for Sinusitis Additional Instructions: Drink plenty of fluids. Take tylenol for pain or fever. Take the medications as directed. Follow up with your regular doctor. GO TO THE ER FOR ANY WORSENING SYMPTOMS Prescriptions: predniSONE [Deltasone 10mg tablet] 10 mg PO BID 4 Days #8 tab Transmission Status: Received by [id number] Azithromycin [Z-Edson 250mg Tab*] 250 mg PO UD DOSE PK #6 tab Transmission Status: Received by [id number] Referrals: PCP,No [Primary Care Provider] - Forms: Work/School Release Time of Disposition: 15:17 Medical Decision Making - Medical Records Medical records reviewed: No: I reviewed the patient's medical records. - Mikey Inquiry Pt receiving controlled substance: No Vital Signs: 08/04/20 14:35 Temperature 98.5 F Temperature Source Oral Pulse Rate [Right Brachial] 108 H Respiratory Rate 14 Blood Pressure [Right Arm] 159/90 H Blood Pressure Mean [Right Arm] 113 Blood Pressure Source [Right Arm] Automatic Cuff Blood Pressure Position [Right Arm] Sitting 02 Sat by Pulse Oximetry 97 Oxygen Delivery Method Room Air Medical Decision Narrative: She refused a covid test even after I explained to her that her symptoms could be related to COVID-19. [facility] [place] HPI - General Stated complaint: ear and head pain Time Seen by Provider: 08/04/20 15:10 Mode of Arrival: Ambulatory Limitations: No Limitations Description of Symptoms (Recalled from Triage Doc. by RN): PATIENT C/O SINUS PRESSURE, HEADACHE, AND LEFT EAR PAIN THAT RADIATES DOWN SIDE OF NECK THAT STARTED 3-4 DAYS AGO HEENT Symptoms (Recalled from RN notes): Yes Resp Symptoms (Recalled from RN notes): No Skin Symptoms (Recalled from RN notes): No MS Symptoms (Recalled from RN notes): No Functional Status (Recalled from RN notes): WNL - History of Present Illness Provider Complaint: She states that she has been having sinus congestion and left ear pain for the past 3 days. She refuses a covid test. - Related Data Previous Rx's Medication Instructions Recorded Azithromycin [Z-Edson 250mg Tab*] 250 mg PO UD DOSE PK #6 tab 08/04/20 predniSONE [Deltasone 10mg tablet] 10 mg PO BID 4 Days #8 tab 08/04/20 Allergies Allergy/AdvReac Type Severity Reaction Status Date / Time No Known Allergies Allergy Verified 06/12/18 10:19 - Worker's Comp Is this a Worker's Comp case?: No [facility] History - Hepatitis A Screen Drug use history?: No High risk sexual behaviors?: No History of sexually transmitted infection?: No Currently employed?: No Childcare worker?: No Do you have indoor plumbing?: Yes Do you have electricity?: Yes Attestation statement:: This patient has been screened for Hepatitis A risk factors. I have reviewed the patient's past medical history: Yes Medical History: Reports:: Diabetes Mellitus Type 2, Hyperlipidemia, Hypertension Denies:: Atherosclerotic Heart Disease, Cancer, Diabetes Mellitus Type 1, MRSA Other Medical History: Reports: Arthritis Laterality Cases: Bilateral: Myringotomy (Ear Tubes), Tonsillectomy Other Surgeries: Yes: Cholecystectomy, Amputation: No Fractures: No - Social History Smoking Status: Current every day smoker Tobacco Type: cigarettes # Packs/Day (cigarettes): 2 Alcohol Intake: never Alcohol Intake Frequency:: holidays/special occasions only Occupational
[2020-08-04 15:22] VITALS: BP 159/90; PULSE 108; RESP 14; TEMP 36.9; O2SAT 97
== END 2020-08-04 15:25 | disposition home or self-care (01) ==
PROVIDERS: Emergency Provider Nurse Practitioner Family
DX: J01.90 Acute sinusitis, unspecified (principal); H66.003 Acute suppurative otitis media without spontaneous rupture of ear drum, bilateral; E11.9 Type 2 diabetes mellitus without complications; E78.5 Hyperlipidemia, unspecified; I10 Essential (primary) hypertension; Z96.22 Myringotomy tube(s) status; Z90.89 Acquired absence of other organs; Z72.0 Tobacco use; Z83.3 Family history of diabetes mellitus; Z82.3 Family history of stroke; Z82.49 Family history of ischemic heart disease and other diseases of the circulatory system; Z83.438 Family history of other disorder of lipoprotein metabolism and other lipidemia
CPT/HCPCS: 99201

== ENCOUNTER 2020-09-27 14:43 | Emergency (ER) | payer MEDICAID, SELFPAY ==
--- NOTE | 2020-09-27 14:50 | HMH.EDUTC ---
[facility] [place] Disposition Clinical Impression: Pain and swelling of left lower extremity Disposition: Home, Self-Care Condition on Discharge: Good Instructions: DI for Deep Vein Thrombosis Referrals: Milady Grullon APRN [Primary Care Provider] - Time of Disposition: 15:59 Medical Decision Making - Mikey Inquiry Pt receiving controlled substance: No Vital Signs: 09/27/20 14:52 Temperature 97.9 F Temperature Source Oral Pulse Rate [Radial] 118 H Respiratory Rate 20 Blood Pressure [Right Arm] 164/105 H Blood Pressure Mean [Right Arm] 124 Blood Pressure Source [Right Arm] Automatic Cuff Blood Pressure Position [Right Arm] Sitting 02 Sat by Pulse Oximetry 98 Oxygen Delivery Method Room Air - Lab Data Lab results reviewed: Yes: I reviewed the patient's lab results. Lab Results 09/27/20 15:11: WBC 14.5 H, RBC 5.48 H, Hgb 16.6 H, Hct 48.8 H, MCV 89.1, MCH 30.3, MCHC 34.0, RDW 13.2, Plt Count 311, MPV 8.1, Neut % (Auto) 69.0, Lymph % (Auto) 23.8, [place] % (Auto) 5.0, Eos % (Auto) 1.2, Baso % (Auto) 0.9, Neut # (Auto) 10.0 H, Lymph # (Auto) 3.5, [place] # (Auto) 0.7, Eos # (Auto) 0.2, Baso # (Auto) 0.1 09/27/20 15:11: PT 10.6, INR 0.95 09/27/20 15:11: Sodium 135 L, Potassium 4.2, Chloride 102, Carbon Dioxide 26, Anion Gap 11.2, BUN 9, Creatinine 0.60, Estimated Creat Clear 122, Estimated GFR 109, Est GFR ( Amer) 132, Glucose 370 H, Calcium 9.9, Total Bilirubin 0.7, AST 35, ALT 26, Alkaline Phosphatase 108, Total Protein 7.5, Albumin 4.3, Globulin 3.2, Albumin/Globulin Ratio 1.3 09/27/20 15:11: D-Dimer 0.69 Result diagrams: 09/27/20 15:11 09/27/20 15:11 Medical Decision Narrative: Will give 1.3 ml Lovenox now and get Venous Doppler in am. F/U with PCP office after US. [facility] [place] HPI - General Stated complaint: sciatic pain left leg Time Seen by Provider: 09/27/20 14:50 - History of Present Illness Provider Complaint: Pain in left lower leg X 8-9 days. Feels like one giant charley horse in her lower leg. Cannot find a comfortable position. Hurts to walk. Denies trauma. H/O HTN, currently not on meds because she can't afford it. She does smoke. She is not on OCPs or hormones. Last menses 2 weeks ago. SHe has a history of sciatica but this is different. Has been using heat. Has had some swelling, her foot feels cold at times and sometimes throbs. Onset (ago): day(s) (9) Location: left, lower extremity Radiation: non-radiation Relieving factors: none Exacerbating factors: none Associated symptoms: denies other symptoms Treatments prior to arrival: heat therapy - Related Data Previous Rx's Medication Instructions Recorded Azithromycin [Z-Edson 250mg Tab*] 250 mg PO UD DOSE PK #6 tab 08/04/20 predniSONE [Deltasone 10mg tablet] 10 mg PO BID 4 Days #8 tab 08/04/20 Allergies Allergy/AdvReac Type Severity Reaction Status Date / Time No Known Allergies Allergy Verified 06/12/18 10:19 [facility] History - Hepatitis A Screen Attestation statement:: This patient has been screened for Hepatitis A risk factors. I have reviewed the patient's past medical history: Yes Medical History: Reports:: Diabetes Mellitus Type 2, Hyperlipidemia, Hypertension Denies:: Atherosclerotic Heart Disease, Cancer, Diabetes Mellitus Type 1, MRSA Other Medical History: Reports: Arthritis Laterality Cases: Bilateral: Myringotomy (Ear Tubes), Tonsillectomy Other Surgeries: Yes: Cholecystectomy, Amputation: No Fractures: No - Social History Smoking Status: Current every day smoker Tobacco Type: cigarettes # Packs/Day (cigarettes): 2 Alcohol Intake: never Alcohol Intake Frequency:: holidays/special occasions only Occupational Status: other Housing: house Household Members: spouse, children Family Hx:: Cancer, Coronary Artery Disease, Diabetes, Heart Attack, Hyperlipidemia, Hypertension, Stroke ROS Obtained: Yes All systems reviewed & no additional complaints - Musculoskeletal Musculoskeletal: Reports other (L
[2020-09-27 14:52] VITALS: BP 164/105; PULSE 118; RESP 20; TEMP 36.6; O2SAT 98; BMI 42.5
[2020-09-27 15:30] LABS: Basophils # 0.1 K/mm3 (0-0.2); Basophils % 0.9 % (0.1-2.0); Eosinophils # 0.2 K/mm3 (0.0-0.4); Eosinophils % 1.2 % (0.1-12.0); Hematocrit 48.8 % (37.0-47.0); Hemoglobin 16.6 g/dL (12.2-16.2); Lymphocytes # 3.5 K/mm3 (0.7-4.5); Lymphocytes % 23.8 % (10-50); Mean Corpuscular Hemoglobin 30.3 pg (27.0-31.2); Mean Corpuscular Volume 89.1 fl (81-99); Mean Platelet Volume 8.1 fl (7.4-10.4); Monocytes # 0.7 K/mm3 (0.1-1.0); Platelet Count 311 K/mm3 (142-424); Red Blood Count 5.48 M/mm3 (4.20-5.40); Red Cell Distribution Width 13.2 % (11.5-17.5); White Blood Count 14.5 K/mm3 (4.8-10.8)
[2020-09-27 15:36] LABS: Chloride 102 mmol/L (98-107); Potassium 4.2 mmoL/L (3.5-5.1); Sodium 135 mmol/L (136-145)
[2020-09-27 15:39] LABS: Alanine Aminotransferase 26 U/L (12-78); Albumin Level 4.3 g/dl (3.5-5.0); Albumin/Globulin Ratio 1.3 (1.1-1.8); Alkaline Phosphatase 108 U/L (38-126); Anion Gap 11.2 mEq/L (5-15); Aspartate Amino Transferase 35 U/L (14-36); Bilirubin,Total 0.7 mg/dl (0.2-1.3); Blood Urea Nitrogen 9 mg/dl (7-17); Carbon Dioxide 26 mmol/L (22.0-30.0); Creatinine Clearance Estimated 122 mL/min (50-200); Estimated Glomerular Filt Rate 109 ml/min (>60); GFR (African American) 132 ML/MIN (>60); Globulin 3.2 g/dL (1.3-3.2); Total Protein,Serum 7.5 g/dl (6.3-8.2)
[2020-09-27 15:40] LABS: Calcium 9.9 mg/dl (8.4-10.2); Glucose 370 mg/dl (74-100)
[2020-09-27 15:43] LABS: INR 0.95 (0.9-1.1); Prothrombin Time 10.6 seconds (9.4-11.8)
[2020-09-27 15:50] LABS: D-Dimer 0.69 ug/mL (0.15-8.0)
[2020-09-27 16:15] VITALS: BP 160/95; PULSE 100; RESP 20; TEMP 36.6; O2SAT 98
== END 2020-09-27 16:29 | disposition home or self-care (01) ==
PROVIDERS: Emergency Provider Physician Assistant; PCP Nurse Practitioner Family
DX: M79.605 Pain in left leg (principal); I10 Essential (primary) hypertension; E78.5 Hyperlipidemia, unspecified; E11.9 Type 2 diabetes mellitus without complications; F17.210 Nicotine dependence, cigarettes, uncomplicated
CPT/HCPCS: 80053; 85025; 85378; 85610; 96372; 99202

== ENCOUNTER → 2020-09-28 10:55 | Outpatient (CLI) | payer MEDICAID, SELFPAY ==
--- NOTE | 2020-09-28 11:00 | CA_ITS ---
APPROVED REPORT Left Lower Extremity Venous Study for DVT. Premium Auditor: CT Indications Lower Extremity Pain: Left Risk Factors Obesity Current Smoker Vein Imaging CFV (L): compressive, spontaneous, phasic, augmentation SFJ (L): compressive, spontaneous, phasic, augmentation FEM (L): compressive, spontaneous, phasic, augmentation POP (L): compressive, spontaneous, phasic, augmentation DFV (L): compressive, spontaneous, phasic, augmentation PTV (L): compressive, spontaneous, phasic, augmentation GSV (L): compressive, spontaneous, phasic, augmentation SSV (L): compressive, spontaneous, phasic, augmentation Peroneals (L):compressive, spontaneous, phasic, augmentation GAS (L): compressive, spontaneous, phasic, augmentation Findings LLE negative for DVT/SVT. Vessels fully compressible. Conclusion LLE negative for DVT/SVT. Vessels fully compressible. Electronically signed by : Robert Abdalla MD 09/29/2020 20:00:08
== END ==
PROVIDERS: PCP Physician Assistant; Visit Provider Physician Assistant
DX: M79.662 Pain in left lower leg (principal)
CPT/HCPCS: 93971

== ENCOUNTER → 2020-09-30 14:51 | Outpatient (CLI) | payer MEDICAID, SELFPAY ==
[2020-09-30 15:02] LABS: Basophils # 0.1 K/mm3 (0-0.2); Basophils % 0.7 % (0.1-2.0); Eosinophils # 0.2 K/mm3 (0.0-0.4); Eosinophils % 1.1 % (0.1-12.0); Hematocrit 49.4 % (37.0-47.0); Hemoglobin 16.9 g/dL (12.2-16.2); Lymphocytes # 3.1 K/mm3 (0.7-4.5); Lymphocytes % 20.4 % (10-50); Mean Corpuscular HGB Conc 34.2 g/dL (31.8-35.4); Mean Corpuscular Hemoglobin 31.2 pg (27.0-31.2); Mean Platelet Volume 9.2 fl (7.4-10.4); Monocytes # 0.9 K/mm3 (0.1-1.0); Monocytes % 5.7 % (1.7-9.3); Neutrophils # 10.8 K/mm3 (1.8-7.8); Neutrophils % 72.1 % (37.0-80.0); Platelet Count 369 K/mm3 (142-424); Red Blood Count 5.43 M/mm3 (4.20-5.40); Red Cell Distribution Width 13.2 % (11.5-17.5)
[2020-09-30 15:04] LABS: MANUAL DIFFERENTIAL MANUAL DIFFERENTIAL (MANUAL DIFF)
[2020-09-30 15:11] LABS: Alanine Aminotransferase 21 U/L (12-78); Albumin Level 4.1 g/dl (3.5-5.0); Albumin/Globulin Ratio 1.5 (1.1-1.8); Alkaline Phosphatase 112 U/L (38-126); Anion Gap 12.1 mEq/L (5-15); Aspartate Amino Transferase 20 U/L (14-36); Bilirubin,Total 0.5 mg/dl (0.2-1.3); Blood Urea Nitrogen 8 mg/dl (7-17); Calcium 10.4 mg/dl (8.4-10.2); Carbon Dioxide 27 mmol/L (22.0-30.0); Chloride 98 mmol/L (98-107); Cholesterol 266 mg/dl (140-200); Estimated Glomerular Filt Rate 109 ml/min (>60); GFR (African American) 132 ML/MIN (>60); Globulin 2.8 g/dL (1.3-3.2); HDL Cholesterol 38 mg/dl (40-60); Potassium 5.1 mmoL/L (3.5-5.1); Sodium 132 mmol/L (136-145); Total Protein,Serum 6.9 g/dl (6.3-8.2)
[2020-09-30 15:15] LABS: Eosinophils % 1 % (0-3); Lymphocytes % 28 % (10-50); Monocytes % 6 % (2-9); Neutrophils % 65 % (42-76); Platelet Estimate Normal; RBC Morphology Normal; Total Cells Counted 100
[2020-09-30 15:21] LABS: Triglycerides 508 mg/dl (30-150)
[2020-09-30 15:22] LABS: Direct LDL Cholesterol 138.38 mg/dL (100-129)
[2020-09-30 15:27] LABS: 25-OH Vitamin D, Total 13.5 ng/mL (30-100)
[2020-09-30 15:28] LABS: T4 (Thyroxine) 12.4 ug/dl (5.53-11.0)
[2020-09-30 15:41] LABS: Glucose 400 mg/dl (74-100); Thyroid Stimulating Hormone 1.72 uIU/mL (0.465-4.68)
[2020-09-30 17:40] LABS: Hemoglobin A1C 10.6 % (4.0-6.0)
[2020-09-30 17:49] LABS: Creatinine,Urine Random 58 mg/dL (Not Estab.)
[2020-09-30 17:52] LABS: Microalbumin/Creatinine Ratio 40.1
== END ==
PROVIDERS: Visit Provider Nurse Practitioner Family
DX: E11.9 Type 2 diabetes mellitus without complications (principal); R53.83 Other fatigue; E55.9 Vitamin D deficiency, unspecified; Z79.84 Long term (current) use of oral hypoglycemic drugs; Z79.899 Other long term (current) drug therapy
CPT/HCPCS: 80053; 80061; 82043; 82306; 82570; 83036; 84436; 84443; 85007; 85025

== ENCOUNTER 2020-10-04 21:34 | Emergency (ER) | payer OTHER, SELFPAY ==
[2020-10-04 21:52] VITALS: BP 170/105; PULSE 140; RESP 15; TEMP 36.9; O2SAT 97; BMI 40.4
--- NOTE | 2020-10-04 22:00 | XR_ITS ---
PROCEDURE: XR CHEST 2V CLINICAL HISTORY: incr hr Smoker, increased heart rate COMPARISON: CR Chest from 04/01/2019 CR XR CHEST 2V from 09/10/2019 FINDINGS: The cardiomediastinal silhouette and pulmonary vascularity are within normal limits. The lungs are clear without infiltrates, suspicious nodules, or pleural effusions. No acute bony abnormalities. IMPRESSION: No acute findings. Dictated by: Maximo Cast MD 10/05/2020 05:02 Maximo Cast MD in [place] 10/05/2020 05:02
--- NOTE | 2020-10-04 22:00 | ECG_ITS ---
APPROVED REPORT Exam: Resting ECG HR:125 bpm ECG Measurements Heart Rate 125 AXES HI 156 P 55 QRSd 98 QRS 50 QT 316 T 51 QTc 456 Conclusion Sinus tachycardia Otherwise normal ECG Electronically signed by : Elijah Bartholomew, 10/05/2020 06:55:33
[2020-10-04 22:34] LABS: Basophils # 0.1 K/mm3 (0-0.2); Basophils % 0.5 % (0.1-2.0); Eosinophils # 0.2 K/mm3 (0.0-0.4); Hematocrit 51.4 % (37.0-47.0); Hemoglobin 17.2 g/dL (12.2-16.2); Lymphocytes # 3.8 K/mm3 (0.7-4.5); Lymphocytes % 19.1 % (10-50); Mean Corpuscular HGB Conc 33.5 g/dL (31.8-35.4); Mean Corpuscular Hemoglobin 29.8 pg (27.0-31.2); Mean Platelet Volume 7.8 fl (7.4-10.4); Monocytes # 0.9 K/mm3 (0.1-1.0); Monocytes % 4.5 % (1.7-9.3); Platelet Count 313 K/mm3 (142-424); Red Blood Count 5.77 M/mm3 (4.20-5.40); White Blood Count 19.9 K/mm3 (4.8-10.8)
[2020-10-04 22:44] LABS: MANUAL DIFFERENTIAL MANUAL DIFFERENTIAL (MANUAL DIFF)
[2020-10-04 22:49] LABS: Alanine Aminotransferase 22 U/L (12-78); Albumin Level 4.5 g/dl (3.5-5.0); Albumin/Globulin Ratio 1.3 (1.1-1.8); Alkaline Phosphatase 101 U/L (38-126); Anion Gap 13.9 mEq/L (5-15); Aspartate Amino Transferase 25 U/L (14-36); Bilirubin,Total 0.8 mg/dl (0.2-1.3); Blood Urea Nitrogen 12 mg/dl (7-17); Calcium 10.1 mg/dl (8.4-10.2); Carbon Dioxide 24 mmol/L (22.0-30.0); Chloride 100 mmol/L (98-107); Creatinine Clearance Estimated 230 mL/min (50-200); Estimated Glomerular Filt Rate 109 ml/min (>60); GFR (African American) 132 ML/MIN (>60); Globulin 3.4 g/dL (1.3-3.2); Glucose 201 mg/dl (74-100); Potassium 3.9 mmoL/L (3.5-5.1); Sodium 134 mmol/L (136-145); Total Protein,Serum 7.9 g/dl (6.3-8.2); Uric Acid 5.3 mg/dl (2.5-6.2)
[2020-10-04 22:51] LABS: Prothrombin Time 11.1 seconds (9.4-11.8)
[2020-10-04 22:55] LABS: C-Reactive Protein 19.9 mg/L (0-4)
[2020-10-04 23:00] LABS: Eosinophils % 1 % (0-3); Lymphocytes % 9 % (10-50); Monocytes % 3 % (2-9); Neutrophils % 80 % (42-76); Platelet Estimate Normal; RBC Morphology Normal; Total Cells Counted 100
--- NOTE | 2020-10-04 23:02 | HMH.EDGENADL ---
ED Disposition Clinical Impression: Lower extremity pain, left, SIRS (systemic inflammatory response syndrome) Disposition: Home, Self-Care Condition on Discharge: Good Instructions: DI for Acute Pain -- Adult Additional Instructions: see pcp in am Referrals: Milady Grullon APRN [Primary Care Provider] - - Critical Care Critical Care Time: No Attestation: On 10/04/20, the high probability of a clinically significant, sudden or life threatening deterioration of the following system(s) required my full and direct attention, intervention and personal management. The time I documented below is in addition to time spent performing reported procedures but includes the following listed in this critical care notation. Medical Decision Making - Medical Records Medical records reviewed: Yes: I reviewed the patient's medical records. - Mikey Inquiry Pt receiving controlled substance: No Vital Signs: 10/04/20 21:52 Temperature 98.4 F Temperature Source Oral Pulse Rate [Right Brachial] 140 H Respiratory Rate 15 Blood Pressure [Right Arm] 170/105 H Blood Pressure Mean [Right Arm] 126 Blood Pressure Source [Right Arm] Automatic Cuff Blood Pressure Position [Right Arm] Sitting 02 Sat by Pulse Oximetry 97 Oxygen Delivery Method Room Air - Lab Data Lab results reviewed: Yes: I reviewed the patient's lab results. Lab Results 10/04/20 22:15: WBC 19.9 H, RBC 5.77 H, Hgb 17.2 H, Hct 51.4 H, MCV 89.0, MCH 29.8, MCHC 33.5, RDW 13.0, Plt Count 313, MPV 7.8, Neut % (Auto) 75.0, Lymph % (Auto) 19.1, [place] % (Auto) 4.5, Eos % (Auto) 1.0, Baso % (Auto) 0.5, Neut # (Auto) 15.0 H, Lymph # (Auto) 3.8, [place] # (Auto) 0.9, Eos # (Auto) 0.2, Baso # (Auto) 0.1, Total Counted 100, Neutrophils % (Manual) 80 H, Band Neutrophils % 7.0, Lymphocytes % (Manual) 9 L, Monocytes % (Manual) 3, Eosinophils % (Manual) 1, Platelet Estimate Normal, RBC Morphology Normal, ESR 16 10/04/20 22:15: PT 11.1, INR 1.00 01/03/21 22:15: Sodium 134 L, Potassium 3.9, Chloride 100, Carbon Dioxide 24, Anion Gap 13.9, BUN 12, Creatinine 0.60, Estimated Creat Clear 230, Estimated GFR 109, Est GFR ( Amer) 132, Glucose 201 H, Uric Acid 5.3, Calcium 10.1, Total Bilirubin 0.8, AST 25, ALT 22, Alkaline Phosphatase 101, C-Reactive Protein 19.9 H, Total Protein 7.9, Albumin 4.5, Globulin 3.4 H, Albumin/Globulin Ratio 1.3 10/04/20 23:55: Lactate 1.3 Result diagrams: 10/04/20 22:15 10/04/20 22:15 Orders (Tests/Meds): ED MEDICATIONS Discontinued Medications Generic Name Dose Route Start Last Admin Trade Name Hectorq PRN Reason Stop Dose Admin Hydromorphone HCl 1 mg 10/04/20 23:59 10/05/20 00:06 Hydromorphone 2mg/Ml Syringe IV 10/05/20 00:00 1 mg ONCE ONE Administration Ketorolac Tromethamine 30 mg 10/04/20 23:06 10/04/20 23:07 Ketorolac 30mg/Ml Vial IV 10/04/20 23:07 30 mg ONCE ONE Administration Ondansetron HCl 4 mg 10/04/20 23:59 10/05/20 00:06 Ondansetron 4mg/2ml Vial IV 10/05/20 00:00 4 mg ONCE ONE Administration ORDERS Category Date Time Status XR chest 2V Stat Exams 10/04/20 22:00 Taken Blood Culture Stat Micro 10/04/20 23:55 Received - Radiology Data #1 Image(s): Chest Image Reviewed: Yes I reviewed the patient's radiology image Preliminary Findings: Normal/NAD - ECG Data Tracing #1 Arrhythmias present: sinus tach Ischemic changes: non-specific ST-T wave changes Medical Decision Narrative: no clear dx will ask pt to see pcp in am for more testing General Adult HPI - General Chief complaint: PAIN Stated complaint: Left leg pain, no accident Time Seen by Provider: 10/04/20 22:20 Mode of Arrival: Family Vehicle Source of Information: Patient, Relative Limitations: No Limitations Description of Symptoms (Recalled from ER Triage Doc. by RN): pt presents after already being assessed a few days ago for dvt rule out. states pain in lle is incr and causes her to be in tears. hypertens
[2020-10-04 23:15] LABS: Erythrocyte Sedimentation Rate 16 mm/hr (0-20)
[2020-10-05 00:37] LABS: Lactic Acid 1.3 mmol/L (0.7-2.1)
[2020-10-05 01:38] VITALS: BP 152/79; PULSE 76; RESP 16; TEMP 36.8; O2SAT 99
== END 2020-10-05 01:41 | disposition home or self-care (01) ==
PROVIDERS: Emergency Provider Emergency Medicine; PCP Nurse Practitioner Family
DX: M79.662 Pain in left lower leg (principal); R65.10 Systemic inflammatory response syndrome (SIRS) of non-infectious origin without acute organ dysfunction; J44.9 Chronic obstructive pulmonary disease, unspecified; I10 Essential (primary) hypertension; E11.65 Type 2 diabetes mellitus with hyperglycemia; E78.5 Hyperlipidemia, unspecified; F17.210 Nicotine dependence, cigarettes, uncomplicated; Z79.899 Other long term (current) drug therapy; Z79.84 Long term (current) use of oral hypoglycemic drugs
CPT/HCPCS: 71046; 80053; 83605; 84550; 85007; 85025; 85610; 85651; 86140; 87040; 93005; 96374; 96375; 99283; J2405

== ENCOUNTER 2020-10-08 16:29 | Inpatient (IN) | payer OTHER, SELFPAY ==
[2020-10-08] VITALS (80 sets, daily range): BP systolic 115–173; BP diastolic 74–110; PULSE 86–135; RESP 16–20; TEMP 36.7; O2SAT 89–100; BMI 39.5; BMI 39.6
--- NOTE | 2020-10-08 | IR_ITS ---
APPROVED REPORT Patient Location: [facility] Super[facility] Spring Up: FLASH Bailey RT (R) PROCEDURES Catheter placement in the abdominal aorta Bilateral iliofemoral angiography with bilateral runoff to the feet Thrombectomy to the left superficial femoral artery and left popliteal artery Bare-metal stent deployment to the proximal to mid superficial femoral artery with extension into the proximal popliteal artery Catheter directed thrombolytic therapy INDICATION Acute left leg thrombosis with acute limb threatening ischemia, Acute thrombosis of the superficial femoral artery and popliteal artery, Acute thrombosis of the anterior and posterior tibialis artery and peroneal artery, Acute thrombosis of the profunda femoris artery Informed consent was obtained prior to the procedure. COMPLICATIONS None Estimated Blood Loss: less than 10ml TECHNIQUE 1% lidocaine used anesthetize the right groin the right from artery was accessed via the Salinger technique and a 5 [place] sheath was placed in the right femoral artery. A pigtail catheter was advanced to the distal abdominal aorta and bilateral iliofemoral runoff was performed. Therapeutic heparin was administered and the 5 [place] sheath was exchanged for a 6 [place] destination sheath. An advantage wire was placed into the left common femoral artery which allowed the destination sheath to be advanced. The advantage wire was then used to push through the thrombosis throughout the superficial femoral artery and popliteal artery. A CAT 6 catheter was used to aspirate large amounts of thrombus which partially restored flow down the superficial femoral artery however still inadequately. A 5 mm x 200 mm balloon was then deployed in the superficial femoral artery and popliteal artery. Dissections were identified which appeared to be significant and flow-limiting therefore a 6 mm x 150 mm self-expanding stent was deployed in the superficial femoral artery followed by an additional 6 mm x 80 mm self-expanding stent which overlapped the distal portion of the first stent. Repeat angiography demonstrated diffuse thrombus in the lower extremity. There was improvement of flow into the left foot with the calf and foot now being significantly warmer than patient's cold presentation prior to the procedure. A thrombus was also identified in the profunda femoris. At this point due to the systemic embolization and thrombosis of a nonatherosclerotic appearing leg it was decided to infuse thrombolytic therapy in order to restore the microcirculation and smaller vascular circulation. The sheath was sewn into place and thrombolytic protocol was undertaken ANGIOGRAPHIC RESULTS The distal abdominal aorta is normal Right common internal and external iliac arteries are normal. The right common femoral right superficial femoral-popliteal and profunda femoris arteries are normal. There is three-vessel runoff below the knee on the right side The left common internal and external iliac arteries are normal. The left common femoral artery is normal. The left profunda femoris artery was initially normal. The left superficial femoral artery is thrombosed from the proximal segment throughout its entire course and into the popliteal artery. There is scant flow distally with all 3 distal runoff vessels occluded IMPRESSION Acute and diffuse thrombosis as described above Partially successful revascularization with yarsanism of flow to the left lower extremity with notable change in temperature and now the presence of a dopplerable pulse PLAN 1. Thrombolytic therapy combined with heparin therapy 2. Bring patient back tomorrow for repeat angiography Electronically signed
--- NOTE | 2020-10-08 10:51 | US_ITS ---
APPROVED REPORT Exam Type: Ankle to Brachial Index Product Development Consultant: Brionna Riojas RT(R) Indications Claudication: Left Rest Pain: Left Edema Risk Factors Hypertension Hyperlipidemia Obesity Diabetes Current Smoker Pressures/Indices Right Indices Left Indices Brachial 142.00 mmHg Brachial 138.00 mmHg Low Thigh 160.00 mmHg 1.13 Low Thigh 64.00 mmHg 0.45 Calf 163.00 mmHg 1.15 Calf Ankle(PT) 134.00 mmHg 0.94 Ankle(PT) Ankle(DP) 152.00 mmHg 1.07 Ankle(DP) 91.00 mmHg 0.64 Digit 141.00 mmHg 0.99 Digit Findings RT ANTOINE=1.1 LT ANTOINE=0.6 RT TBI=1.0 LT TBI=Not detected Normal pulses and waveforms RLE Grossly abnormal LLE with absent PT pulses and toe pressures. Popliteal pulse was present but diminished. No waveform detected in left calf and ankle. Conclusion RT ANTOINE=1.1 LT ANTOINE=0.6 RT TBI=1.0 LT TBI=Not detected Normal pulses and waveforms RLE Grossly abnormal LLE with absent PT pulses and toe pressures. Popliteal pulse was present but diminished. No waveform detected in left calf and ankle. Critical Notification Critical Value: Yes Physician Notified Date: 10/08/2020 Time: 11:40 Physician Name: Zayda Moreira Report Read Back Electronically signed by : Maximo Cast MD 10/08/2020 18:00:45
[2020-10-08 14:41] LABS: Basophils # 0.1 K/mm3 (0-0.2); Basophils % 0.5 % (0.1-2.0); Eosinophils # 0.3 K/mm3 (0.0-0.4); Eosinophils % 1.6 % (0.1-12.0); Hematocrit 50.1 % (37.0-47.0); Lymphocytes # 2.8 K/mm3 (0.7-4.5); Lymphocytes % 16.7 % (10-50); Mean Corpuscular HGB Conc 33.8 g/dL (31.8-35.4); Mean Corpuscular Volume 88.7 fl (81-99); Mean Platelet Volume 7.9 fl (7.4-10.4); Monocytes # 0.8 K/mm3 (0.1-1.0); Monocytes % 4.8 % (1.7-9.3); Neutrophils # 12.6 K/mm3 (1.8-7.8); Neutrophils % 76.4 % (37.0-80.0); Platelet Count 344 K/mm3 (142-424); Red Blood Count 5.65 M/mm3 (4.20-5.40); Red Cell Distribution Width 12.9 % (11.5-17.5); White Blood Count 16.5 K/mm3 (4.8-10.8)
[2020-10-08 14:44] LABS: MANUAL DIFFERENTIAL MANUAL DIFFERENTIAL (MANUAL DIFF)
[2020-10-08 14:51] LABS: Lymphocytes % 22 % (10-50); Monocytes % 7 % (2-9); Neutrophils % 71 % (42-76); Platelet Estimate Normal; RBC Morphology Normal; Total Cells Counted 100
[2020-10-08 14:52] LABS: HCG Qualitative, Serum Negative (Negative)
[2020-10-08 15:01] LABS: Chloride 100 mmol/L (98-107); Sodium 137 mmol/L (136-145)
[2020-10-08 15:02] LABS: Potassium 3.7 mmoL/L (3.5-5.1)
[2020-10-08 15:04] LABS: Blood Urea Nitrogen 11 mg/dl (7-17); Creatinine Clearance Estimated 225 mL/min (50-200); Estimated Glomerular Filt Rate 109 ml/min (>60); GFR (African American) 132 ML/MIN (>60)
[2020-10-08 15:05] LABS: Anion Gap 11.7 mEq/L (5-15); Calcium 10.3 mg/dl (8.4-10.2); Carbon Dioxide 29 mmol/L (22.0-30.0); Glucose 265 mg/dl (74-100)
[2020-10-08 15:10] LABS: Coronavirus 19 IgG Antibody Negative (Negative); Coronavirus 19 IgM Antibody Negative (Negative)
--- NOTE | 2020-10-08 15:55 | HMH.PNCARD ---
Subjective Date: 10/08/20 Time: 15:56 Principal diagnosis: Ischemic leg Interval history: Office note from Today. New Patient here for Abnormal ANTOINE Past medical, social, surgical, family history reviewed with patient during interview. PMH-DM2/HTN/HLD Social-Tob abuse Family-Father cabg Surg-Marita/c section/tonsil/adenoid ANTOINE- results pending at time of visit, reported tech could not find pulse in Left lower extremity, no wave forms present on ANTOINE data sheet. Denies cp and pressure Denies dizziness and lightheadedness Denies SOB 1 week ago started having left leg pain. Swelling in LLE is present, she states that she is having some numbness in her LEFT foot but this neuropathy related. She states this is all started about a week ago. She states that she is having resting pain and claudication. She rates her pain 10/10. Denies any non healing wounds. States that she may have some discoloration in her Big toe. BP elevated. No palpable pulse in left lower ext and is cyanotic. She is having extreme pain in her entire left leg. Would recommend lower extremity runoff for ischemic LEFT foot. Spoke with Dr. Gutierrez, will send patient up to cardiac cath technician for emergent intervention of the LEFT LOWER EXTREMITY. PLAN: 1. Bilateral lower ext runoff today 2. RTC [address] PALMA This document was scribed by Fawn Shabazz RN for Telly Rueda MD. Exam Vital signs and Labs for Last 24 Hours: Temp Pulse Resp BP Pulse Ox 98.0 F 128 H 18 157/86 H 95 10/08/20 14:39 10/08/20 14:39 10/08/20 14:39 10/08/20 14:39 10/08/20 14:39 Laboratory Results - last 24 hr 10/08/20 14:30: WBC 16.5 H, RBC 5.65 H, Hgb 17.0 H, Hct 50.1 H, MCV 88.7, MCH 30.0, MCHC 33.8, RDW 12.9, Plt Count 344, MPV 7.9, Neut % (Auto) 76.4, Lymph % (Auto) 16.7, [place] % (Auto) 4.8, Eos % (Auto) 1.6, Baso % (Auto) 0.5, Neut # (Auto) 12.6 H, Lymph # (Auto) 2.8, [place] # (Auto) 0.8, Eos # (Auto) 0.3, Baso # (Auto) 0.1, Total Counted 100, Neutrophils % (Manual) 71, Lymphocytes % (Manual) 22, Monocytes % (Manual) 7, Platelet Estimate Normal, RBC Morphology Normal 10/08/20 14:30: Sodium 137, Potassium 3.7, Chloride 100, Carbon Dioxide 29, Anion Gap 11.7, BUN 11, Creatinine 0.60, Estimated Creat Clear 225, Estimated GFR 109, Est GFR ( Amer) 132, Glucose 265 H, Calcium 10.3 H 10/08/20 14:30: Serum HCG, Qual Negative 10/08/20 14:30: SARS-CoV-2 IgG Ab (Rapid) Negative, SARS-CoV-2 IgM Ab (Rapid) Negative I & O for Last 24 hours: Intake & Output 10/06/20 10/07/20 10/08/20 10/09/20 11:59 11:59 11:59 11:59 Weight 260 lb - Constitutional moderate distress - *Routine HEENT Exam Head: Present: normocephalic Eye: Present: EOMI, PERRL ENT: Present: mucous membranes moist - *Routine Neck Exam Present: supple. Absent: lymphadenopathy - *Routine Respiratory Exam Present: CTA bilaterally - *Routine Cardiovascular Exam Present: RRR - *Routine Abdominal Exam Present: soft, normoactive bowel sounds. Absent: tenderness - *Routine Extremities Exam Present: cyanosis. Absent: clubbing, edema Comments: left leg with cyanosis and no distal pulse. - *Routine Skin Exam Present: warm. Absent: rash - *Routine Neurological Exam Present: alert, oriented X3 Progress Note: A&P (1) PAD (peripheral artery disease) Status: Acute (2) Decreased pulses in feet Status: Acute (3) Ischemic foot pain at rest Status: Acute (4) Lower extremity pain, left Status: Acute (5) Obesity Status: Acute (6) Sinus tachycardia Status: Acute (7) T2DM (type 2 diabetes mellitus) Status: Acute (8) Tobacco abuse Status: Acute (9) Hyperlipidemia Status: Chronic Assessment and Plan for All Diagnoses:: 1. S/P stenting of SFA and popliteal. Thrombus noted in profunda femoris and distal vessels. Will use alteplase to try and breakdown remaining clot. Discussing transfer to Vascular surgery at [facility] if bed available. 2. DM, per Dr. Johnson
[2020-10-08 17:01] LABS: Microscopic, Urine URINE MICROSCOPIC (MICROSCOPIC)
[2020-10-08 17:03] LABS: Appearance,Urine CLEAR (Clear); Bilirubin,Urine Negative (Negative); Blood, Urine TRACE-I (Negative); Color,Urine YELLOW (Yellow); Glucose,Urine (UA) 1+ (Negative); Ketones,Urine Negative (Negative); Leukocyte Esterase,Urine Negative (Negative); Nitrate,Urine Negative (Negative); PH,Urine 5.5 (5.0-8.5); Protein,Urine Negative (Negative); Urobilinogen,Urine 0.2 EU/dl (0.2)
[2020-10-08 17:12] LABS: Bacteria,Urine Trace /lpf
[2020-10-08 17:26] LABS: CATHL Activated Clotting Time 270 SEC (74-125)
--- NOTE | 2020-10-08 17:45 | PC.NURSE ---
pt arrived to the floor from microbiological lab technician. Heparin gtt infusing @ 1000 units/hr via left hand PIV. Alteplase gtt infusing @ 2mg/hr (2mL/hr) via 6fr right groin cath sheath. Per Danii Garrett RN, Alteplase gtt is to remain @ 2mL/hr until tomorrow morning @ 0930. NS @ 20mL/hr is infusing thru 6fr right groin cath site as well. HR irreg @ 120-130s and SBP 150s. Diltiazem gtt started @ 1753 @ 5mg/hr via right hand PIV. Pt is A&O. Has pain all over r/t procedure and LLE blood clot. Pt is to remain in the supine position until ordered differently by Dr. Gutierrez. Right DP and PT pulses are palpable. Left DP and PT pulses required a doppler. LLE is extremely tender upon palpation. Right groin site is CDI and tender upon palpation. NO bruising or hematoma noted. [place]anan cath noted with clear urine. Vitals to be taken Q5min per Dr. Gutierrez.
--- NOTE | 2020-10-08 19:04 | HMH.HP ---
*Admission Date: 10/08/20 *Chief complaint: ischemic limb *History of present illness: 1 week ago started having left leg pain. Swelling in LLE is present, she states that she is having some numbness in her LEFT foot but this neuropathy related. She states this is all started about a week ago. She states that she is having resting pain and claudication. She rates her pain 10/10. Denies any non healing wounds. States that she may have some discoloration in her Big toe. BP elevated. No palpable pulse in left lower ext and is cyanotic. She is having extreme pain in her entire left leg. Would recommend lower extremity runoff for ischemic LEFT foot. Spoke with Dr. Gutierrez, will send patient up to golf course laborer for emergent intervention of the LEFT LOWER EXTREMITY. above is from cardiology team note taken to golf course laborer S/P stenting of SFA and popliteal. Thrombus noted in profunda femoris and distal vessels. Will use alteplase to try and breakdown remaining clot. The alteplase is infusing through vascular access site right groin, 2mg per hour after a 5 mg bolus. DP/PT pulses are easily palpable on the right. DP/PT are present by doppler on the left. Left foot is warm to touch, as is the proximal leg. Pt is uncomfortable having to lie in steady supine position. Primary is Eugonda Fryman. Co-morbid diabetes, extent of control unknown. Also smoker since age 20. HTN and HLD also present. Neuropathy is present, secondary to diabetes. History of dvt. [facility] History Medical History: Reports:: Cardiomyopathy, Deep Vein Thrombosis, Diabetes Mellitus Type 2, Hyperlipidemia, Hypertension, Peripheral Artery Disease, Peripheral Vascular Disease Denies:: Atherosclerotic Heart Disease, Cancer, Diabetes Mellitus Type 1, Internal Pacemaker, MRSA, Seizures *Have you ever received a pneumonia vaccine?: No *Have you received a flu vaccine this season?: No Other Medical History: Reports: Arthritis Laterality Cases: Bilateral: Myringotomy (Ear Tubes), Tonsillectomy Other Surgeries: Yes: Cholecystectomy, . No: Pacemaker Amputation: No Fractures: No - *Social History Last grade of school completed: High school graduate Smoking Status: Current every day smoker Tobacco Type: cigarettes # Packs/Day (cigarettes): 2 Alcohol Intake: never Alcohol Intake Frequency:: holidays/special occasions only Substance Use Type: denies use *Occupational Status:: employed Housing: house Household Members: spouse *Travel in the last 8 weeks: None Family Hx:: Cancer, Coronary Artery Disease, Diabetes, Heart Attack, Hyperlipidemia, Hypertension, Stroke Review of Systems - Constitutional Reports fatigue, Reports lack of energy - Eyes Denies change in vision - ENT Denies difficulty swallowing - *Cardiovascular Reports fast heart rate, Denies chest pain - *Respiratory Denies chest congestion - *Gastrointestinal Denies abdominal pain - *Genitourinary Denies difficulty urinating - *Musculoskeletal Reports back pain, Reports muscle weakness, Reports numbness, Reports radiating pain into limb - Integumentary/Breasts Denies yellowing of the skin - *Neurologic Reports abnormal walking, Reports tingling/numbness/burning sensations, Reports radiating pain - Psychiatric Reports anxiety - Endocrine Denies cold intolerance - Hematologic/Lymphatic Denies easy bleeding - Allergic/Immunologic Denies hives Meds Home Medications Medication Instructions Recorded Confirmed Type dulaglutide 0.75 mg/0.5 mL 0.75 mg SQ WEEKLY 28 Days #2 ml 09/30/20 10/08/20 Rx subcutaneous pen injector gabapentin 300 mg capsule 300 mg PO HS #120 cap 09/30/20 10/08/20 Rx lisinopril 5 mg tablet 5 mg PO DAILY #30 tab 09/30/20 10/08/20 Rx metformin 500 mg tablet 500 mg PO BID #60 tab 09/30/20 10/08/20 Rx simvastatin 5 mg tablet 5 mg PO HS #30 tab 09/30/20 10/08/20 Rx sitagliptin 50 mg tablet 50 mg PO DAILY #30 tab 09/30/20 10/08/20 Rx hydrocodone 5 mg-acetaminophen 325 1
[2020-10-08 20:58] LABS: POC Glucose,Bedside 161 (70-110)
--- NOTE | 2020-10-08 21:29 | PC.NURSE ---
She is A&Ox4. She was lying supine upon shift change. Reporting pain in her left buttock and calf. Dr. Pedraza was at bedside during shift change. He ordered morphine 2mg q 4 hours PRN for pain and she received a dose. She continued to report pain. Dr. Gutierrez rounded at at 203 and gave order for morphine 4mg q 30 mins for moderate to severe pain. He raised her HOB but kept her legs flat. He placed a pillow under her left hip. She reported some relief of pain with that. VSS monitored q 5 mins. Positive radial and pedal pulses. Pulse in left foot must be obtained via doppler. LLE is normal temperature and pink in color, although there is slight discoloration to the tip of her left great toe. Tip of left great toe is blanchable. Capillary refill <3 to all extremities. #6Fr in place in right groin with tegaderm over site. No bruising, bleeding, or swelling at site. She is 1:1 with ICU nurse. Receiving frequent pain medications. Placed on 2LPM n/c in regards to O2 dropping when falling asleep. She has slept intermittently for short periods.
[2020-10-08 21:56] LABS: Activated Partial Thrombo Time 31.3 seconds (23.6-34.0)
[2020-10-09] VITALS (265 sets, daily range): BP systolic 90–181; BP diastolic 53–102; PULSE 70–112; RESP 10–21; TEMP 36.6–36.7; O2SAT 90–100; BMI 39.4
--- NOTE | 2020-10-09 | IR_ITS ---
APPROVED REPORT Patient Location: Inpatient PROCEDURES Selective antegrade angiogram of the left common femoral artery with unilateral runoff to the left foot INDICATION Acute limb threatening ischemia, Follow-up diagnostic angiogram following therapeutic thrombolytic therapy Informed consent was obtained prior to the procedure. COMPLICATIONS NONE Estimated Blood Loss: LESS THAN 10 ML TECHNIQUE Patient was taken to the [facility] and sterilely prepped. The sheath remained in place from the day before. This was sterilely prepped and the injector was connected to the port after the port was aspirated and then appropriately flushed. Contrast was then infused and iliofemoral angiography was performed ANGIOGRAPHIC RESULTS The left femoral artery is normal The left profunda femoris artery has a thrombus in the proximal segment with scant yet still present distal perfusion The left superficial femoral artery is widely patent through the proximal mid and distal segment. As it transitions into the popliteal artery thrombus is identified within the midportion of the popliteal artery The anterior tibialis artery posterior tibialis artery and peroneal arteries are all proximally occluded. The posterior tibialis artery and anterior tibialis artery do reconstitute into the foot from scant collaterals IMPRESSION Partial improvement with improved revascularization to the left foot PLAN 1. Given patient's low PTT during the initial infusion of thrombolytic therapy I recommend repeating the thrombolytic therapy making sure the PTT remains therapeutic with much higher doses for heparin Electronically signed by : Cholo Gutierrez, 10/09/2020 12:34:21
[2020-10-09 04:23] LABS: Chloride 104 mmol/L (98-107); Potassium 4.3 mmoL/L (3.5-5.1); Sodium 134 mmol/L (136-145)
[2020-10-09 04:25] LABS: Blood Urea Nitrogen 11 mg/dl (7-17); Creatinine Clearance Estimated 225 mL/min (50-200); Estimated Glomerular Filt Rate 109 ml/min (>60); GFR (African American) 132 ML/MIN (>60)
[2020-10-09 04:26] LABS: Alanine Aminotransferase 18 U/L (12-78); Albumin Level 3.6 g/dl (3.5-5.0); Albumin/Globulin Ratio 1.2 (1.1-1.8); Alkaline Phosphatase 80 U/L (38-126); Anion Gap 7.3 mEq/L (5-15); Aspartate Amino Transferase 21 U/L (14-36); Bilirubin,Total 0.6 mg/dl (0.2-1.3); Carbon Dioxide 27 mmol/L (22.0-30.0); Chol/HDL Ratio 6.2 (1-3.5); Cholesterol 185 mg/dl (140-200); Globulin 2.9 g/dL (1.3-3.2); Glucose 206 mg/dl (74-100); HDL Cholesterol 30 mg/dl (40-60); Total Protein,Serum 6.5 g/dl (6.3-8.2); Triglycerides 273 mg/dl (30-150); VLDL Cholesterol 55 mg/dL (0-40)
[2020-10-09 04:35] LABS: Activated Partial Thrombo Time 29.4 seconds (23.6-34.0)
[2020-10-09 04:37] LABS: Direct LDL Cholesterol 107.95 mg/dL (100-129)
[2020-10-09 05:10] LABS: Calcium 9.2 mg/dl (8.4-10.2)
[2020-10-09 06:05] LABS: Hemoglobin A1C 9.8 % (4.0-6.0)
--- NOTE | 2020-10-09 07:40 | PC.NURSE ---
Alteplase infusion was completed this morning around 0300. NS @ 20mL/hr continues to infuse via right groin cath sheath. Diltiazem gtt infusing @ 5mg/hr (5mL/hr) via right 22g PIV. Heparin gtt infusing @ 1600 units/hr (32ml/hr) via left hand 20g PIV. Right groin site has 6fr sheath. Area is CDI. No bruising or hematoma noted. Left hip is propped up with a blanket. Right side is to remain straight and flat. Right DP and PT pulses are palpable. Left DP pulse is audible with doppler. Left PT pulse is absent. Viraj MANCERA rounded @ 0720 this morning and is aware. He was unable to doppler left PT pulse as well. Vitals are Q5min. NSR on tele. Pt to have 2nd dental laboratory assistant procedure this morning.
--- NOTE | 2020-10-09 07:49 | HMH.PHAVTE ---
[facility] Pharmacy VTE Monitoring - Patient Demographics Admission date: 10/08/20 Report Date: 10/09/20 Time: 07:49 Allergies/Adverse Reactions: Patient Allergies No Known Allergies Allergy (Verified 10/08/20 13:43) Height: 1.73 m Weight: 118.132 kg Patient Problems: Current Active Problems PAD (peripheral artery disease) (Acute) Essential (primary) hypertension (Chronic) Sinus tachycardia (Acute) Decreased pulses in feet (Acute) Ischemic foot pain at rest (Acute) Tobacco abuse (Acute) Obesity (Acute) T2DM (type 2 diabetes mellitus) (Acute) Lower extremity pain, left (Acute) Hyperlipidemia (Chronic) - VTE Risk Labs: VTE Related Lab Results Hgb 17.0 g/dL (12.2-16.2) H 10/08/20 14:30 Hct 50.1 % (37.0-47.0) H 10/08/20 14:30 Plt Count 344 K/mm3 (142-424) 10/08/20 14:30 APTT 29.4 seconds (23.6-34.0) 10/09/20 04:05 BUN 11 mg/dl (7-17) 10/09/20 04:05 Creatinine 0.60 mg/dl (0.52-1.04) 10/09/20 04:05 Estimated Creat Clear 225 mL/min (50-200) 10/09/20 04:05 Was VTE Risk Assessment Performed: Yes VTE Score: 9 VTE Risk Level: Moderate Risk - Prophylaxis VTE Prophylaxis Ordered?: Yes Types of VTE Prophylaxis: Pharmacological Pharmacologic Type: Heparin
--- NOTE | 2020-10-09 07:51 | HMH.PNCARD ---
Subjective Date: 10/09/20 Time: 07:51 Principal diagnosis: Ischemic leg Interval history: 45 yo WF in bed in NAD but relates back pain despite morphine. Alteplase finished infusing overnight and she continues on IV heparin. Left foot warm with faint DP pulse on palpation but strong with doppler. PT pulse not appreciated with touch or doppler. 2+ edema noted. Exam Vital signs and Labs for Last 24 Hours: Temp Pulse Resp BP Pulse Ox 98.0 F 99 H 17 136/93 H 96 10/08/20 21:00 10/09/20 07:10 10/08/20 21:00 10/09/20 07:10 10/09/20 07:10 Laboratory Results - last 24 hr 10/08/20 14:30: WBC 16.5 H, RBC 5.65 H, Hgb 17.0 H, Hct 50.1 H, MCV 88.7, MCH 30.0, MCHC 33.8, RDW 12.9, Plt Count 344, MPV 7.9, Neut % (Auto) 76.4, Lymph % (Auto) 16.7, [place] % (Auto) 4.8, Eos % (Auto) 1.6, Baso % (Auto) 0.5, Neut # (Auto) 12.6 H, Lymph # (Auto) 2.8, [place] # (Auto) 0.8, Eos # (Auto) 0.3, Baso # (Auto) 0.1, Total Counted 100, Neutrophils % (Manual) 71, Lymphocytes % (Manual) 22, Monocytes % (Manual) 7, Platelet Estimate Normal, RBC Morphology Normal 10/08/20 14:30: Sodium 137, Potassium 3.7, Chloride 100, Carbon Dioxide 29, Anion Gap 11.7, BUN 11, Creatinine 0.60, Estimated Creat Clear 225, Estimated GFR 109, Est GFR ( Amer) 132, Glucose 265 H, Calcium 10.3 H 10/08/20 14:30: Serum HCG, Qual Negative 10/08/20 14:30: SARS-CoV-2 IgG Ab (Rapid) Negative, SARS-CoV-2 IgM Ab (Rapid) Negative 10/08/20 16:10: Activated Clotting Time 270 H* 10/08/20 16:30: Urine Color Yellow, Urine Appearance Clear, Urine pH 5.5, Ur Specific [place] 1.010, Urine Protein Negative, Urine Glucose (UA) 1+, Urine Ketones Negative, Urine Blood Trace-i, Urine Nitrate Negative, Urine Bilirubin Negative, Urine Urobilinogen 0.2, Ur Leukocyte Esterase Negative, Ur Squamous Epith Cells 3-5, Urine Bacteria Trace 10/08/20 20:05: POC Glucose 161 H 10/08/20 21:25: APTT 31.3 10/09/20 04:05: Sodium 134 L, Potassium 4.3, Chloride 104, Carbon Dioxide 27, Anion Gap 7.3, BUN 11, Creatinine 0.60, Estimated Creat Clear 225, Estimated GFR 109, Est GFR ( Amer) 132, Glucose 206 H D, Calcium 9.2 D, Total Bilirubin 0.6, AST 21, ALT 18, Alkaline Phosphatase 80, Total Protein 6.5, Albumin 3.6, Globulin 2.9, Albumin/Globulin Ratio 1.2, Triglycerides 273 H, Cholesterol 185, LDL Cholesterol Direct 107.95, VLDL Cholesterol 55 H, HDL Cholesterol 30 L, Cholesterol/HDL Ratio 6.2 H 10/09/20 04:05: Hemoglobin A1c 9.8 H 10/09/20 04:05: APTT 29.4 I & O for Last 24 hours: Intake & Output 10/06/20 10/07/20 10/08/20 10/09/20 11:59 11:59 11:59 11:59 Intake Total 634 / 634 Output Total 700 / 700 Balance -66 / -66 Weight 260 lb 7 oz - Constitutional no acute distress - *Routine HEENT Exam Head: Present: normocephalic Eye: Present: EOMI, PERRL ENT: Present: mucous membranes moist - *Routine Neck Exam Present: supple. Absent: lymphadenopathy - *Routine Respiratory Exam Present: CTA bilaterally - *Routine Cardiovascular Exam Present: RRR - *Routine Abdominal Exam Present: soft, normoactive bowel sounds. Absent: tenderness - *Routine Extremities Exam Present: edema. Absent: cyanosis, clubbing Comments: Left foot warm with faint DP pulse on palpation but strong with doppler. PT pulse not appreciated with touch or doppler. 2+ edema noted - *Routine Skin Exam Present: warm. Absent: rash - *Routine Neurological Exam Present: alert, oriented X3 Progress Note: A&P (1) PAD (peripheral artery disease) Status: Acute (2) Decreased pulses in feet Status: Acute (3) Ischemic foot pain at rest Status: Acute (4) Lower extremity pain, left Status: Acute (5) Obesity Status: Acute (6) Sinus tachycardia Status: Acute (7) T2DM (type 2 diabetes mellitus) Status: Acute (8) Tobacco abuse Status: Acute (9) Hyperlipidemia Status: Chronic (10) Essential (primary) hypertension Status: Chronic (11) Erythrocytosis Status: Acut
--- NOTE | 2020-10-09 08:13 | PC.NURSE ---
called track repair laborer and spoke to Christiane to verify morning meds to give. She states to give Lisinopril and to HOLD ASA and Januvia until after her track repair laborer procedure. Order read back and verified.
[2020-10-09 08:50] LABS: Basophils # 0.1 K/mm3 (0-0.2); Basophils % 0.8 % (0.1-2.0); Eosinophils # 0.2 K/mm3 (0.0-0.4); Eosinophils % 1.1 % (0.1-12.0); Lymphocytes # 3.6 K/mm3 (0.7-4.5); Lymphocytes % 24.6 % (10-50); Mean Corpuscular HGB Conc 33.3 g/dL (31.8-35.4); Mean Corpuscular Hemoglobin 29.7 pg (27.0-31.2); Mean Corpuscular Volume 89.1 fl (81-99); Mean Platelet Volume 10.2 fl (7.4-10.4); Monocytes # 0.9 K/mm3 (0.1-1.0); Monocytes % 6.3 % (1.7-9.3); Neutrophils # 9.7 K/mm3 (1.8-7.8); Neutrophils % 67.2 % (37.0-80.0); Platelet Count 311 K/mm3 (142-424); Red Blood Count 4.71 M/mm3 (4.20-5.40); Red Cell Distribution Width 12.9 % (11.5-17.5); White Blood Count 14.5 K/mm3 (4.8-10.8)
--- NOTE | 2020-10-09 09:24 | HMH.PHAHEP ---
[facility] Pharm[facility] Heparin Dosing - Demographic Data Admission date:: 10/08/20 Date: 10/08/20 Time: 16:00 Allergies/Adverse Reactions: Allergies Allergy/AdvReac Type Severity Reaction Status Date / Time No Known Allergies Allergy Verified 10/08/20 13:43 Height: 1.73 m Weight: 118.132 kg - Indication Medication therapy:: Heparin Patient Problems: Current Active Problems PAD (peripheral artery disease) (Acute) Essential (primary) hypertension (Chronic) Erythrocytosis (Acute) Sinus tachycardia (Acute) Decreased pulses in feet (Acute) Ischemic foot pain at rest (Acute) Tobacco abuse (Acute) Obesity (Acute) T2DM (type 2 diabetes mellitus) (Acute) Lower extremity pain, left (Acute) Hyperlipidemia (Chronic) CVA?: No Bleeding problem?: No Kidney disease?: No SD?: No Desired PTT range:: 50-70 seconds - Labs Anticoagulation Lab Results:: 10/08/20 10/09/20 14:30 04:05 Hgb 17.0 H 14.0 D Hct 50.1 H 42.0 Plt Count 344 311 - Monitoring Dose Monitor 1 Date: 10/08/20 Time: 21:25 PTT Result:: PTT 31.3 Infusion Rate:: 1300 UNITS/HR (26 ML/HR) 5000 UNITS BOLUS Comment:: PATIENT FROM RECORD CLERK. ALREADY RECEIVED ~93500 UNITS OF HEPARIN DURING PROCEDURE. MD WANTED TO START HEPARIN OUT LOWER DUE TO THIS. PATIENT ALSO RECEIVED 5 MG BOLUS OF ATLEPLASE THROUGH SHEATH. PATIENT RECEIVING ADDITIONAL 35 MG CONTINUOUS INFUSION AT 2 MG/HR (2 ML/HR). TOTAL DOSE OF ALTEPLASE WAS 40 MG. Dose Monitor 2 Date: 10/09/20 Time: 04:05 PTT Result:: PTT 29.4 Infusion Rate:: HEPARIN 1600 UNITS/HR (32 ML/HR) 5000 UNIT ADDITIONAL BOLUS RECHECK AT 1000 THIS AM. Dose Monitor 3 Date: 10/09/20 Time: 10:00 PTT Result:: 35.9 Infusion Rate:: 2000 UNITS/HR (40 ML/HR) 5000 UNIT BOLUS X2 IN RECORD CLERK Dose Monitor 4 Date: 10/09/20 Time: 16:00 PTT Result:: 71.7 Infusion Rate:: CONTINUE WITH HEPARIN 2000 UNITS/HR (40 ML/HR) Dose Monitor 5 Date: 10/09/20 Time: 22:00 PTT Result:: 44.4 Infusion Rate:: INCREASED HEPARIN RATE TO 2300 UNIT/HR AND 5000 UNIT BOLUS Dose Monitor 6 Date: 10/10/20 Time: 04:00 PTT Result:: 58.3 Infusion Rate:: INCREASED RATE TO 2400 UNITS/HR (48 ML/HR) - Core Measures Is INR > or = 2 at discharge?: No Most Recent Labs:: Laboratory Results - last 24 hr 10/08/20 14:30: WBC 16.5 H, RBC 5.65 H, Hgb 17.0 H, Hct 50.1 H, MCV 88.7, MCH 30.0, MCHC 33.8, RDW 12.9, Plt Count 344, MPV 7.9, Neut % (Auto) 76.4, Lymph % (Auto) 16.7, [place] % (Auto) 4.8, Eos % (Auto) 1.6, Baso % (Auto) 0.5, Neut # (Auto) 12.6 H, Lymph # (Auto) 2.8, [place] # (Auto) 0.8, Eos # (Auto) 0.3, Baso # (Auto) 0.1, Total Counted 100, Neutrophils % (Manual) 71, Lymphocytes % (Manual) 22, Monocytes % (Manual) 7, Platelet Estimate Normal, RBC Morphology Normal 10/08/20 14:30: Sodium 137, Potassium 3.7, Chloride 100, Carbon Dioxide 29, Anion Gap 11.7, BUN 11, Creatinine 0.60, Estimated Creat Clear 225, Estimated GFR 109, Est GFR ( Amer) 132, Glucose 265 H, Calcium 10.3 H 10/08/20 14:30: Serum HCG, Qual Negative 10/08/20 14:30: SARS-CoV-2 IgG Ab (Rapid) Negative, SARS-CoV-2 IgM Ab (Rapid) Negative 10/08/20 16:10: Activated Clotting Time 270 H* 10/08/20 16:30: Urine Color Yellow, Urine Appearance Clear, Urine pH 5.5, Ur Specific [place] 1.010, Urine Protein Negative, Urine Glucose (UA) 1+, Urine Ketones Negative, Urine Blood Trace-i, Urine Nitrate Negative, Urine Bilirubin Negative, Urine Urobilinogen 0.2, Ur Leukocyte Esterase Negative, Ur Squamous Epith Cells 3-5, Urine Bacteria Trace 10/08/20 20:05: POC Glucose 161 H 10/08/20 21:25: APTT 31.3 10/09/20 04:05: WBC 14.5 H, RBC 4.71, Hgb 14.0 D, Hct 42.0, MCV 89.1, MCH 29.7, MCHC 33.3, RDW 12.9, Plt Count 311, MPV 10.2, Neut % (Auto) 67.2, Lymph % (Auto) 24.6, [place] % (Auto) 6.3, Eos % (Auto) 1.1, Baso % (Auto) 0.8, Neut # (Auto) 9.7 H, Lymph # (Auto) 3.6, [place] # (Auto) 0.9, Eos # (Auto) 0.2, Baso # (Auto) 0.1 10/09/20 04
--- NOTE | 2020-10-09 09:28 | HMH.ACPN2 ---
Internal Medicine - PN: Subj *Date: 10/09/20 *Time: 08:00 Interval history: pt laying flat states pain in back. Exam Vital signs and Labs for Last 24 Hours: Temp Pulse Resp BP Pulse Ox 98.0 F 86 18 146/95 H 95 10/08/20 21:00 10/09/20 09:10 10/09/20 09:10 10/09/20 09:10 10/09/20 09:10 Laboratory Results - last 24 hr 10/08/20 14:30: WBC 16.5 H, RBC 5.65 H, Hgb 17.0 H, Hct 50.1 H, MCV 88.7, MCH 30.0, MCHC 33.8, RDW 12.9, Plt Count 344, MPV 7.9, Neut % (Auto) 76.4, Lymph % (Auto) 16.7, [place] % (Auto) 4.8, Eos % (Auto) 1.6, Baso % (Auto) 0.5, Neut # (Auto) 12.6 H, Lymph # (Auto) 2.8, [place] # (Auto) 0.8, Eos # (Auto) 0.3, Baso # (Auto) 0.1, Total Counted 100, Neutrophils % (Manual) 71, Lymphocytes % (Manual) 22, Monocytes % (Manual) 7, Platelet Estimate Normal, RBC Morphology Normal 10/08/20 14:30: Sodium 137, Potassium 3.7, Chloride 100, Carbon Dioxide 29, Anion Gap 11.7, BUN 11, Creatinine 0.60, Estimated Creat Clear 225, Estimated GFR 109, Est GFR ( Amer) 132, Glucose 265 H, Calcium 10.3 H 10/08/20 14:30: Serum HCG, Qual Negative 10/08/20 14:30: SARS-CoV-2 IgG Ab (Rapid) Negative, SARS-CoV-2 IgM Ab (Rapid) Negative 10/08/20 16:10: Activated Clotting Time 270 H* 10/08/20 16:30: Urine Color Yellow, Urine Appearance Clear, Urine pH 5.5, Ur Specific [place] 1.010, Urine Protein Negative, Urine Glucose (UA) 1+, Urine Ketones Negative, Urine Blood Trace-i, Urine Nitrate Negative, Urine Bilirubin Negative, Urine Urobilinogen 0.2, Ur Leukocyte Esterase Negative, Ur Squamous Epith Cells 3-5, Urine Bacteria Trace 10/08/20 20:05: POC Glucose 161 H 10/08/20 21:25: APTT 31.3 10/09/20 04:05: WBC 14.5 H, RBC 4.71, Hgb 14.0 D, Hct 42.0, MCV 89.1, MCH 29.7, MCHC 33.3, RDW 12.9, Plt Count 311, MPV 10.2, Neut % (Auto) 67.2, Lymph % (Auto) 24.6, [place] % (Auto) 6.3, Eos % (Auto) 1.1, Baso % (Auto) 0.8, Neut # (Auto) 9.7 H, Lymph # (Auto) 3.6, [place] # (Auto) 0.9, Eos # (Auto) 0.2, Baso # (Auto) 0.1 10/09/20 04:05: Sodium 134 L, Potassium 4.3, Chloride 104, Carbon Dioxide 27, Anion Gap 7.3, BUN 11, Creatinine 0.60, Estimated Creat Clear 225, Estimated GFR 109, Est GFR ( Amer) 132, Glucose 206 H D, Calcium 9.2 D, Total Bilirubin 0.6, AST 21, ALT 18, Alkaline Phosphatase 80, Total Protein 6.5, Albumin 3.6, Globulin 2.9, Albumin/Globulin Ratio 1.2, Triglycerides 273 H, Cholesterol 185, LDL Cholesterol Direct 107.95, VLDL Cholesterol 55 H, HDL Cholesterol 30 L, Cholesterol/HDL Ratio 6.2 H 10/09/20 04:05: Hemoglobin A1c 9.8 H 10/09/20 04:05: APTT 29.4 I & O for Last 24 hours: Intake & Output 10/06/20 10/07/20 10/08/20 10/09/20 11:59 11:59 11:59 11:59 Intake Total 634 / 634 Output Total 700 / 700 Balance -66 / -66 Weight 260 lb 7 oz - Constitutional no acute distress, obese - *Routine HEENT Exam Head: Present: normocephalic Eye: Present: PERRL ENT: Present: mucous membranes moist - *Routine Neck Exam Present: supple. Absent: lymphadenopathy - *Routine Respiratory Exam Present: CTA bilaterally - *Routine Cardiovascular Exam Present: RRR - *Routine Abdominal Exam Present: soft, normoactive bowel sounds. Absent: tenderness - *Routine Extremities Exam Absent: cyanosis, clubbing, edema Comments: ext warm, pulses doppler only - *Routine Skin Exam Present: warm. Absent: rash - *Routine Neurological Exam Present: alert, oriented X3 - Routine Psychiatric Exam Present: normal affect Assessment and Plan (1) PAD (peripheral artery disease) Status: Acute Category: Medical Code(s): I73.9 - Peripheral vascular disease, unspecified (2) Decreased pulses in feet Status: Acute Category: Medical Code(s): R09.89 - Other specified symptoms and signs involving the circulatory and respiratory systems (3) Ischemic foot pain at rest Status: Acute Category: Medical Code(s): M79.673 - Pain in unspecified foot; I99.8 - Other disorder of circulatory system (4) Lower extremity pain, left St
--- NOTE | 2020-10-09 10:11 | PC.NURSE ---
Patient off floor to cathlab at this time, report given Jeff Hyde RN and Isaac Garrett RN
[2020-10-09 10:36] LABS: Activated Partial Thrombo Time 35.9 seconds (23.6-34.0)
--- NOTE | 2020-10-09 11:13 | SUR.OPER ---
Verbal order of heparin infusion to increase to 2000units/hr
[2020-10-09 12:07] LABS: POC Glucose,Bedside 163 (70-110)
--- NOTE | 2020-10-09 12:59 | PC.NURSE ---
Patient back from medical laboratory technicians at this time, report from Isaac Garrett RN, patient has 6F sheath to right groin in place, no bleeding or hematoma noted, no change in peripheral pulses from prior assessment.
--- NOTE | 2020-10-09 13:44 | HMH.PHAINT ---
MEDICATION RECONCILIATION COMPLETED ON PATIENT USING EXTERNAL FILL HISTORY FROM PHARMACY AND LIST ROM MD OFFICE. -KATHRYN ROGERSD
[2020-10-09 14:20] LABS: CATHL Activated Clotting Time 152 SEC (74-125)
[2020-10-09 17:00] LABS: POC Glucose,Bedside 131 (70-110)
[2020-10-09 17:29] LABS: Activated Partial Thrombo Time 71.7 seconds (23.6-34.0)
--- NOTE | 2020-10-09 17:35 | PC.NURSE ---
Patient resting in bed in supine position, 6F sheath in place in right groin, no bleeding or hematoma noted at site, sheath sutured in place with tegarderm. Pt has been treated for pain per emar frequently, patient reports back and left leg pain from lying in bed, on 2lnc, lungs cta, 2+ edema noted to LLE, peripheral pulses 1+ with exception of left post tibial which is absent, lower extremities warm, pt is alert and oriented x4, vss, heparin, alteplase, and cardizem infusing at this time, fc patent and draining clear yellow urine at bedside, abd soft and nontender, active bowel sounds in all quads, will continue to monitor.
[2020-10-09 21:11] LABS: POC Glucose,Bedside 164 (70-110)
[2020-10-09 22:24] LABS: Activated Partial Thrombo Time 44.4 seconds (23.6-34.0)
[2020-10-10] VITALS (146 sets, daily range): BP systolic 91–168; BP diastolic 54–108; PULSE 70–107; RESP 14–18; TEMP 36.6–36.9; O2SAT 81–99; BMI 41.5
--- NOTE | 2020-10-10 | IR_ITS ---
APPROVED REPORT Patient Location: Inpatient [facility] Programmer: FLASH Bailey RT (R) PROCEDURES Left femoral artery angiogram with unilateral runoff to the left foot INDICATION Follow-up on thrombolytic therapy from acute thrombosis of the left leg Informed consent was obtained prior to the procedure. COMPLICATIONS NONE Estimated Blood Loss: LESS THAN 10 ML TECHNIQUE Arterial access was already obtained and the right groin was sterilely prepped. The sheath was then aspirated and flushed with normal saline. Unilateral runoff was then performed into the left foot ANGIOGRAPHIC RESULTS The left common femoral artery is widely patent The left profunda femoris artery is now widely patent Left superficial femoral arteries widely patent stents through the proximal and mid segment The left popliteal artery is widely patent The left anterior tibialis artery is widely patent The left peroneal artery and left posterior tibialis artery are proximally occluded but do reconstitute distally IMPRESSION Significant interval improvement with resolution of all the thrombus at the pregeniculate level. Distal to the knee there is excellent single-vessel runoff with reconstitution of the posterior tibialis artery distally PLAN 1. Xarelto 15 mg twice daily x3 weeks followed by 20 mg a day thereafter 2. Plavix 75 mg daily 3. Aspirin 81 mg a day for 1 month then discontinue the aspirin 4. LDL less than 55 5. Treatment of ischemic neuropathy with Neurontin and opiates as needed Electronically signed by : Cholo uGtierrez, 10/15/2020 13:13:16
[2020-10-10 04:16] LABS: Basophils # 0.1 K/mm3 (0-0.2); Basophils % 0.5 % (0.1-2.0); Eosinophils # 0.3 K/mm3 (0.0-0.4); Eosinophils % 1.9 % (0.1-12.0); Hematocrit 40.1 % (37.0-47.0); Hemoglobin 13.2 g/dL (12.2-16.2); Lymphocytes # 3.8 K/mm3 (0.7-4.5); Lymphocytes % 26.9 % (10-50); Mean Corpuscular Hemoglobin 29.5 pg (27.0-31.2); Mean Corpuscular Volume 89.4 fl (81-99); Mean Platelet Volume 8.3 fl (7.4-10.4); Monocytes # 0.9 K/mm3 (0.1-1.0); Monocytes % 6.1 % (1.7-9.3); Neutrophils # 9.2 K/mm3 (1.8-7.8); Neutrophils % 64.6 % (37.0-80.0); Platelet Count 251 K/mm3 (142-424); Red Blood Count 4.48 M/mm3 (4.20-5.40); Red Cell Distribution Width 12.9 % (11.5-17.5); White Blood Count 14.2 K/mm3 (4.8-10.8)
--- NOTE | 2020-10-10 04:23 | PC.NURSE ---
extra pillows not removed from bed when obtaining weight r/t pt having difficulty getting comfortable r/t neuropathy in ble.
--- NOTE | 2020-10-10 04:23 | PC.NURSE ---
Pt has slept fitfully throughout the shift. when she falls asleep, she jerks and wakes her self up. complains of pain in her back and in the back of her right thigh occasionally. Lung sounds contain scattered rhonchi but pt able to clear with coughing. bowel sounds are hypoactive. posterior tibial pulse on l foot found with doppler. dorsalis pedi 1+ with out doppler. lle pulses 1+ without doppler.
[2020-10-10 04:28] LABS: Chloride 102 mmol/L (98-107); Potassium 3.7 mmoL/L (3.5-5.1); Sodium 134 mmol/L (136-145)
[2020-10-10 04:31] LABS: Anion Gap 4.7 mEq/L (5-15); Blood Urea Nitrogen 6 mg/dl (7-17); Calcium 8.8 mg/dl (8.4-10.2); Carbon Dioxide 31 mmol/L (22.0-30.0); Creatinine Clearance Estimated 122 mL/min (50-200); Estimated Glomerular Filt Rate 109 ml/min (>60); GFR (African American) 132 ML/MIN (>60)
[2020-10-10 04:36] LABS: Glucose 163 mg/dl (74-100)
[2020-10-10 04:48] LABS: Activated Partial Thrombo Time 58.3 seconds (23.6-34.0)
--- NOTE | 2020-10-10 05:01 | PC.NURSE ---
Spoke with Rosio Awad at approx 0440. ptt 58.3 increase heparin drip to 2400 units per Jevon. PT/PTT to be redrawn at 0900.
[2020-10-10 06:34] LABS: POC Glucose,Bedside 156 (70-110)
--- NOTE | 2020-10-10 09:44 | HMH.ACPN2 ---
Internal Medicine - PN: Subj *Date: 10/10/20 *Time: 09:44 Interval history: doing better - improved pulse - going to laborer prestressed concrete today Exam Vital signs and Labs for Last 24 Hours: Temp Pulse Resp BP Pulse Ox 97.8 F 81 16 137/86 98 10/10/20 04:10 10/10/20 09:40 10/10/20 09:40 10/10/20 09:40 10/10/20 09:40 Laboratory Results - last 24 hr 10/09/20 10:00: APTT 35.9 H D 10/09/20 10:50: POC Glucose 163 H 10/09/20 11:37: Activated Clotting Time 152 H* 10/09/20 16:30: APTT 71.7 H* D 10/09/20 16:53: POC Glucose 131 H 10/09/20 20:50: POC Glucose 164 H 10/09/20 21:55: APTT 44.4 H D 10/10/20 04:00: WBC 14.2 H, RBC 4.48, Hgb 13.2, Hct 40.1, MCV 89.4, MCH 29.5, MCHC 33.0, RDW 12.9, Plt Count 251, MPV 8.3, Neut % (Auto) 64.6, Lymph % (Auto) 26.9, [place] % (Auto) 6.1, Eos % (Auto) 1.9, Baso % (Auto) 0.5, Neut # (Auto) 9.2 H, Lymph # (Auto) 3.8, [place] # (Auto) 0.9, Eos # (Auto) 0.3, Baso # (Auto) 0.1 10/10/20 04:00: Sodium 134 L, Potassium 3.7, Chloride 102, Carbon Dioxide 31 H, Anion Gap 4.7 L, BUN 6 L D, Creatinine 0.60, Estimated Creat Clear 122, Estimated GFR 109, Est GFR ( Amer) 132, Glucose 163 H D, Calcium 8.8 10/10/20 04:00: APTT 58.3 H* D 10/10/20 06:28: POC Glucose 156 H I & O for Last 24 hours: Intake & Output 10/07/20 10/08/20 10/09/20 10/10/20 11:59 11:59 11:59 11:59 Intake Total 634 / 634 1630 / 1630 Output Total 700 / 700 1850 / 1850 Balance -66 / -66 -220 / -220 Weight 260 lb 6.983 oz 273 lb 5 oz - Constitutional no acute distress, obese - *Routine HEENT Exam Head: Present: normocephalic Eye: Present: EOMI, PERRL ENT: Present: mucous membranes dry - *Routine Neck Exam Absent: JVD - *Routine Respiratory Exam Present: decreased breath sounds - *Routine Cardiovascular Exam Present: RRR - *Routine Abdominal Exam Present: soft - *Routine Extremities Exam Absent: calf tenderness - *Routine Skin Exam Present: intact - *Routine Neurological Exam Present: alert, CN II-XII intact - Routine Psychiatric Exam Present: normal affect Assessment and Plan (1) PAD (peripheral artery disease) Status: Acute Category: Medical Code(s): I73.9 - Peripheral vascular disease, unspecified (2) Decreased pulses in feet Status: Acute Category: Medical Code(s): R09.89 - Other specified symptoms and signs involving the circulatory and respiratory systems (3) Ischemic foot pain at rest Status: Acute Category: Medical Code(s): M79.673 - Pain in unspecified foot; I99.8 - Other disorder of circulatory system (4) Lower extremity pain, left Status: Acute Category: Medical Code(s): M79.605 - Pain in left leg (5) Obesity Status: Acute Qualifiers: Obesity type: due to excess calories Obesity classification: adult class 3 (BMI >= 40) Serious obesity comorbidity presence: with serious comorbidity Body mass index: BMI 40.0-44.9 Qualified Code(s): E66.01 - Morbid (severe) obesity due to excess calories; Z68.41 - Body mass index [BMI]40.0-44.9, adult Category: Medical Code(s): E66.9 - Obesity, unspecified (6) Sinus tachycardia Status: Acute Category: Medical Code(s): R00.0 - Tachycardia, unspecified (7) T2DM (type 2 diabetes mellitus) Status: Acute Category: Medical Code(s): E11.9 - Type 2 diabetes mellitus without complications (8) Tobacco abuse Status: Acute Category: Medical Code(s): Z72.0 - Tobacco use (9) Hyperlipidemia Status: Chronic Qualifiers: Hyperlipidemia type: mixed hyperlipidemia Qualified Code(s): E78.2 - Mixed hyperlipidemia Category: Medical Code(s): E78.5 - Hyperlipidemia, unspecified (10) Essential (primary) hypertension Status: Chronic Category: Medical Code(s): I10 - Essential (primary) hypertension (11) Erythrocytosis Status: Acute Category: Medical Code(s): D75.1 - Secondary polycythemia
--- NOTE | 2020-10-10 10:32 | PC.NURSE ---
Patient has been transferred to the Cathlab for another runoff. Patient was given 2mg morphine for pain prior to transfer. Patient rated pain as a 2 prior to transfer. Transferred with all drips still running.
[2020-10-10 11:52] LABS: CATHL Activated Clotting Time 161 SEC (74-125)
[2020-10-10 12:54] LABS: POC Glucose,Bedside 148 (70-110)
[2020-10-10 16:57] LABS: POC Glucose,Bedside 180 (70-110)
--- NOTE | 2020-10-10 18:26 | PC.NURSE ---
PT IS RESTING IN BED. RECEIVING PAIN MEDICATION FOR DISCOMFORT. 2+ PALPABLE PEDAL PULSES. DOPPLER POPLITEAL PULSE (LLE). BLE WARM TO TOUCH. DRESSING TO THE RT GROIN C/D/I. 2 ASSIST WITH CRUTCHES TO GET PT UP TO THE BSC. LUNG SOUNDS CLEAR. ABDOMEN SOFT/ NON TENDER WITH ACTIVE BOWEL SOUNDS. VSS. O2 SATURATION WILL DROP TO THE MID 80'S WHILE PT IS SLEEPING. WILL CONTINUE TO MONITOR.
[2020-10-10 21:43] LABS: POC Glucose,Bedside 193 (70-110)
[2020-10-11] VITALS (17 sets, daily range): BP systolic 107–137; BP diastolic 64–92; PULSE 80–106; RESP 16–20; TEMP 36.4–36.9; O2SAT 91–95; BMI 41.4
[2020-10-11 04:25] LABS: Basophils # 0.1 K/mm3 (0-0.2); Basophils % 0.4 % (0.1-2.0); Eosinophils # 0.2 K/mm3 (0.0-0.4); Eosinophils % 1.8 % (0.1-12.0); Hematocrit 39.3 % (37.0-47.0); Hemoglobin 13.4 g/dL (12.2-16.2); Lymphocytes # 2.9 K/mm3 (0.7-4.5); Lymphocytes % 22.6 % (10-50); Mean Corpuscular Hemoglobin 30.4 pg (27.0-31.2); Mean Corpuscular Volume 89.3 fl (81-99); Mean Platelet Volume 7.6 fl (7.4-10.4); Monocytes # 0.7 K/mm3 (0.1-1.0); Monocytes % 5.7 % (1.7-9.3); Neutrophils # 8.9 K/mm3 (1.8-7.8); Neutrophils % 69.5 % (37.0-80.0); Platelet Count 286 K/mm3 (142-424); Red Cell Distribution Width 13.3 % (11.5-17.5); White Blood Count 12.8 K/mm3 (4.8-10.8)
--- NOTE | 2020-10-11 04:32 | PC.NURSE ---
Pt has slept at intervals this shift. Has c/o cramping to LLE. Describing as a feeling like a morteza horse. Pedal pulses are palpable bilaterally and are bounding. Doppler used for popliteal and posterior tibial. (R) femoral cath site with DSG is C/D/I. VS are stable. Lungs are clear. Pt has been on RA with periods of 2L O2 NC at times due to desats while sleeping. Pt has been up to BSC with assist x1. Has tolerated fair. No other concerns at this time. Will continue to monitor.
[2020-10-11 04:35] LABS: Chloride 100 mmol/L (98-107)
[2020-10-11 04:36] LABS: Potassium 3.3 mmoL/L (3.5-5.1); Sodium 134 mmol/L (136-145)
[2020-10-11 04:39] LABS: Anion Gap 7.3 mEq/L (5-15); Blood Urea Nitrogen 8 mg/dl (7-17); Calcium 9.2 mg/dl (8.4-10.2); Carbon Dioxide 30 mmol/L (22.0-30.0); Creatinine Clearance Estimated 122 mL/min (50-200); Estimated Glomerular Filt Rate 109 ml/min (>60); GFR (African American) 132 ML/MIN (>60); Glucose 215 mg/dl (74-100)
[2020-10-11 06:27] LABS: POC Glucose,Bedside 176 (70-110)
--- NOTE | 2020-10-11 09:52 | HMH.ACPN2 ---
Internal Medicine - PN: Subj *Date: 10/12/20 *Time: 05:54 Interval history: doing better- stent out and able to sit up - sore lower ext Exam Vital signs and Labs for Last 24 Hours: Temp Pulse Resp BP Pulse Ox 98.4 F 95 H 20 117/85 95 10/11/20 08:00 10/11/20 08:00 10/11/20 08:00 10/11/20 08:00 10/11/20 08:00 Laboratory Results - last 24 hr 10/10/20 09:38: APTT 51.0 H* D 10/10/20 11:50: Activated Clotting Time 161 H* 10/10/20 12:45: POC Glucose 148 H 10/10/20 16:26: POC Glucose 180 H 10/10/20 20:26: POC Glucose 193 H 10/11/20 04:10: WBC 12.8 H, RBC 4.40, Hgb 13.4, Hct 39.3, MCV 89.3, MCH 30.4, MCHC 34.0, RDW 13.3, Plt Count 286, MPV 7.6, Neut % (Auto) 69.5, Lymph % (Auto) 22.6, [place] % (Auto) 5.7, Eos % (Auto) 1.8, Baso % (Auto) 0.4, Neut # (Auto) 8.9 H, Lymph # (Auto) 2.9, [place] # (Auto) 0.7, Eos # (Auto) 0.2, Baso # (Auto) 0.1 10/11/20 04:10: Sodium 134 L, Potassium 3.3 L, Chloride 100, Carbon Dioxide 30, Anion Gap 7.3, BUN 8 D, Creatinine 0.60, Estimated Creat Clear 122, Estimated GFR 109, Est GFR ( Amer) 132, Glucose 215 H, Calcium 9.2 10/11/20 06:18: POC Glucose 176 H I & O for Last 24 hours: Intake & Output 10/08/20 10/09/20 10/10/20 10/11/20 11:59 11:59 11:59 11:59 Intake Total 634 / 634 1630 / 1630 1440 / 1440 Output Total 700 / 700 2850 / 2850 1350 / 1350 Balance -66 / -66 -1220 / -1220 90 / 90 Weight 260 lb 6.983 oz 273 lb 5 oz 273 lb 4.983 oz - Constitutional no acute distress, obese - *Routine HEENT Exam Head: Present: normocephalic Eye: Present: EOMI, PERRL ENT: Present: mucous membranes dry - *Routine Neck Exam Present: supple - *Routine Respiratory Exam Absent: respiratory distress - *Routine Cardiovascular Exam Present: RRR - *Routine Abdominal Exam Present: soft - *Routine Extremities Exam Present: pulses intact, normal capillary refill - *Routine Skin Exam Present: intact - *Routine Neurological Exam Present: alert, CN II-XII intact - Routine Psychiatric Exam Present: normal affect Assessment and Plan (1) PAD (peripheral artery disease) Status: Acute Category: Medical Code(s): I73.9 - Peripheral vascular disease, unspecified (2) Decreased pulses in feet Status: Acute Category: Medical Code(s): R09.89 - Other specified symptoms and signs involving the circulatory and respiratory systems (3) Ischemic foot pain at rest Status: Acute Category: Medical Code(s): M79.673 - Pain in unspecified foot; I99.8 - Other disorder of circulatory system (4) Lower extremity pain, left Status: Acute Category: Medical Code(s): M79.605 - Pain in left leg (5) Obesity Status: Acute Qualifiers: Obesity type: due to excess calories Obesity classification: adult class 3 (BMI >= 40) Serious obesity comorbidity presence: with serious comorbidity Body mass index: BMI 40.0-44.9 Qualified Code(s): E66.01 - Morbid (severe) obesity due to excess calories; Z68.41 - Body mass index [BMI]40.0-44.9, adult Category: Medical Code(s): E66.9 - Obesity, unspecified (6) Sinus tachycardia Status: Acute Category: Medical Code(s): R00.0 - Tachycardia, unspecified (7) T2DM (type 2 diabetes mellitus) Status: Acute Category: Medical Code(s): E11.9 - Type 2 diabetes mellitus without complications (8) Tobacco abuse Status: Acute Category: Medical Code(s): Z72.0 - Tobacco use (9) Hyperlipidemia Status: Chronic Qualifiers: Hyperlipidemia type: mixed hyperlipidemia Qualified Code(s): E78.2 - Mixed hyperlipidemia Category: Medical Code(s): E78.5 - Hyperlipidemia, unspecified (10) Essential (primary) hypertension Status: Chronic Category: Medical Code(s): I10 - Essential (primary) hypertension (11) Erythrocytosis Status: Acute Category: Medical Code(s): D75.1 - Secondary polycythemia
[2020-10-11 12:10] LABS: POC Glucose,Bedside 151 (70-110)
--- NOTE | 2020-10-11 16:00 | PC.NURSE ---
PT IS RESTING IN BED. RECEIVED PAIN MEDICATION X1 THIS SHIFT. PT HAS BEEN AMBULATING TO THE BATHROOM WITH 1 ASSIST AND ROLLING WALKER. PT TOLERATED TAKING A SHOWER THIS SHIFT. TOLERATED SITTING UP IN THE CHAIR FOR SEVERAL HOURS. EATING AND DRINKING WELL. PT HAS 2+ PALPABLE PEDAL PULSES. DRESSING TO THE RT GROIN C/D/I. LUNG SOUNDS CLEAR. ABDOMEN SOFT/NON TENDER WITH ACTIVE BOWEL SOUNDS. PT STATES SHE HAS NOT HAD A BOWEL MOVEMENT SINCE MONDAY. VSS. WILL CONTINUE TO MONITOR.
[2020-10-11 17:13] LABS: POC Glucose,Bedside 154 (70-110)
[2020-10-11 20:57] LABS: POC Glucose,Bedside 160 (70-110)
[2020-10-12] VITALS (8 sets, daily range): BP systolic 103–137; BP diastolic 57–91; PULSE 65–102; RESP 16–20; TEMP 36.9–37; O2SAT 90–99; BMI 39.9
--- NOTE | 2020-10-12 03:47 | PC.NURSE ---
No acute changes noted. Pt has slept at intervals. Has c/o cramping, morteza horse like discomfort to LLE. Pedal pulses palpable and bounding. Popliteal and posterior tibial obtained per doppler. Pt has ambulated to BR with walker. Has tolerated better tonight.. (R) femoral cath site with DSG in place. No drainage noted. VSS. Pt NSR on telemetry with periods of sinus tach with activity. She is on RA while awake and 1L O2 NC while sleeping due to periods of desaturation in upper 80s. Medications administered per nov. No other concerns. Will continue to monitor.
[2020-10-12 06:13] LABS: POC Glucose,Bedside 184 (70-110)
[2020-10-12 06:35] LABS: Basophils % 0.3 % (0.1-2.0); Eosinophils # 0.3 K/mm3 (0.0-0.4); Eosinophils % 2.3 % (0.1-12.0); Hematocrit 38.3 % (37.0-47.0); Lymphocytes # 2.9 K/mm3 (0.7-4.5); Lymphocytes % 21.6 % (10-50); Mean Corpuscular HGB Conc 33.9 g/dL (31.8-35.4); Mean Corpuscular Hemoglobin 30.2 pg (27.0-31.2); Mean Corpuscular Volume 89.1 fl (81-99); Mean Platelet Volume 7.7 fl (7.4-10.4); Monocytes # 0.9 K/mm3 (0.1-1.0); Monocytes % 6.5 % (1.7-9.3); Neutrophils # 9.2 K/mm3 (1.8-7.8); Neutrophils % 69.4 % (37.0-80.0); Platelet Count 326 K/mm3 (142-424); White Blood Count 13.2 K/mm3 (4.8-10.8)
[2020-10-12 06:47] LABS: Anion Gap 8.6 mEq/L (5-15); Blood Urea Nitrogen 8 mg/dl (7-17); Calcium 9.1 mg/dl (8.4-10.2); Carbon Dioxide 31 mmol/L (22.0-30.0); Chloride 100 mmol/L (98-107); Creatinine Clearance Estimated 228 mL/min (50-200); Estimated Glomerular Filt Rate 109 ml/min (>60); GFR (African American) 132 ML/MIN (>60); Glucose 184 mg/dl (74-100); Potassium 3.6 mmoL/L (3.5-5.1); Sodium 136 mmol/L (136-145)
--- NOTE | 2020-10-12 09:51 | HMH.PNCARD ---
Subjective Date: 10/12/20 Time: 09:00 Principal diagnosis: Ischemic leg Interval history: This is a 45-year-old white female who is lying in bed with no apparent distress. She is still complaining of pain in her left lower extremity but states that it is slightly better than it was prior to having the procedure done. She thinks her left leg is bothering her mostly because she has been lying in bed all weekend. Her left foot is warm with a bounding left dorsalis pedis pulse and posterior tibialis pulse on the left. She denies any chest pain or pressure. She denies any shortness of breath. She does have some edema in her left lower extremity which is to be expected. She denies any fever, chills, nausea, vomiting, diarrhea, PND or orthopnea. Exam Vital signs and Labs for Last 24 Hours: Temp Pulse Resp BP Pulse Ox 98.4 F 87 20 123/71 94 L 10/12/20 08:00 10/12/20 07:00 10/12/20 07:00 10/12/20 07:00 10/12/20 07:00 Laboratory Results - last 24 hr 10/11/20 11:43: POC Glucose 151 H 10/11/20 17:06: POC Glucose 154 H 10/11/20 20:30: POC Glucose 160 H 10/12/20 05:28: WBC 13.2 H, RBC 4.30, Hgb 13.0, Hct 38.3, MCV 89.1, MCH 30.2, MCHC 33.9, RDW 13.0, Plt Count 326, MPV 7.7, Neut % (Auto) 69.4, Lymph % (Auto) 21.6, [place] % (Auto) 6.5, Eos % (Auto) 2.3, Baso % (Auto) 0.3, Neut # (Auto) 9.2 H, Lymph # (Auto) 2.9, [place] # (Auto) 0.9, Eos # (Auto) 0.3, Baso # (Auto) 0.0 10/12/20 05:28: Sodium 136, Potassium 3.6, Chloride 100, Carbon Dioxide 31 H, Anion Gap 8.6, BUN 8, Creatinine 0.60, Estimated Creat Clear 228, Estimated GFR 109, Est GFR ( Amer) 132, Glucose 184 H, Calcium 9.1 10/12/20 05:57: POC Glucose 184 H I & O for Last 24 hours: Intake & Output 10/09/20 10/10/20 10/11/20 10/12/20 23:59 23:59 23:59 23:59 Intake Total 1214 / 1214 1572 / 1572 2040 / 2220 1140 / 1140 Output Total 2049 1000 / 1450 1825 / 1825 Balance -836 / -836 572 / 122 215 / 395 1140 / 1140 Weight 260 lb 2.327 oz 273 lb 5 oz 273 lb 4.983 oz 263 lb 8 oz - Constitutional no acute distress, obese - *Routine HEENT Exam Head: Present: normocephalic, atraumatic Eye: Present: EOMI, PERRL ENT: Present: mucous membranes moist - *Routine Neck Exam Present: supple, full ROM, normal carotid upstroke. Absent: JVD, carotid bruit, lymphadenopathy - *Routine Respiratory Exam Present: CTA bilaterally - *Routine Cardiovascular Exam Present: RRR, Normal S1. Absent: murmur - *Routine Abdominal Exam Present: soft, normoactive bowel sounds. Absent: tenderness - *Routine Extremities Exam Present: edema (LLE), full ROM, pulses intact, normal capillary refill. Absent: cyanosis, clubbing - *Routine Skin Exam Present: intact, warm. Absent: erythema, rash - *Routine Neurological Exam Present: alert, oriented X3, CN II-XII intact. Absent: sensory deficit, motor deficit Progress Note: A&P (1) PAD (peripheral artery disease) Status: Acute (2) Ischemic foot pain at rest Status: Acute (3) Lower extremity pain, left Status: Acute (4) Obesity Status: Acute (5) T2DM (type 2 diabetes mellitus) Status: Acute (6) Tobacco abuse Status: Acute (7) Hyperlipidemia Status: Chronic (8) Essential (primary) hypertension Status: Chronic Assessment and Plan for All Diagnoses:: Plan: 1. The patient was admitted to the hospital with an ischemic left foot. The patient had partially successful revascularization with episcopal of flow to the left lower extremity with notable change in temperature and presence of a pulse that was able to be dopplered. She did have 2 subsequent runoff on the left lower extremity as well that showed that the artery was patent and no further revascularization was required. 2. The patient will be on aspirin and Plavix for dual antiplatelet therapy. 3. The patient does have a palpable pulse in the left lower extremity which is bounding. 4. Her blood pressure is well controlled. 5. Her LDL g
[2020-10-12 10:58] LABS: Alanine Aminotransferase 30 U/L (12-78); Albumin Level 3.5 g/dl (3.5-5.0); Alkaline Phosphatase 73 U/L (38-126); Aspartate Amino Transferase 45 U/L (14-36); Bilirubin,Direct 0.3 mg/dl (0.0-0.4); Bilirubin,Indirect 0.3 mg/dL (0.0-0.9); Bilirubin,Total 0.6 mg/dl (0.2-1.3); Bilirubin,Unconjugated 0.3 mg/dL (0.0-1.1); Chol/HDL Ratio 6.1 (1-3.5); Cholesterol 176 mg/dl (140-200); HDL Cholesterol 29 mg/dl (40-60); Total Protein,Serum 6.5 g/dl (6.3-8.2); Triglycerides 145 mg/dl (30-150); VLDL Cholesterol 29 mg/dL (0-40)
[2020-10-12 11:09] LABS: Direct LDL Cholesterol 106.47 mg/dL (100-129)
--- NOTE | 2020-10-12 11:43 | HMH.DCSUM ---
General - General Admission date:: 10/08/20 Discharge date: 10/12/20 HPI HPI: 1 week ago started having left leg pain. Swelling in LLE is present, she states that she is having some numbness in her LEFT foot but this neuropathy related. She states this is all started about a week ago. She states that she is having resting pain and claudication. She rates her pain 10/10. Denies any non healing wounds. States that she may have some discoloration in her Big toe. BP elevated. No palpable pulse in left lower ext and is cyanotic. She is having extreme pain in her entire left leg. Would recommend lower extremity runoff for ischemic LEFT foot. Spoke with Dr. Gutierrez, will send patient up to label machine operator for emergent intervention of the LEFT LOWER EXTREMITY. above is from cardiology team note taken to label machine operator S/P stenting of SFA and popliteal. Thrombus noted in profunda femoris and distal vessels. Will use alteplase to try and breakdown remaining clot. The alteplase is infusing through vascular access site right groin, 2mg per hour after a 5 mg bolus. DP/PT pulses are easily palpable on the right. DP/PT are present by doppler on the left. Left foot is warm to touch, as is the proximal leg. Pt is uncomfortable having to lie in steady supine position. Primary is Eugonda Fryman. Co-morbid diabetes, extent of control unknown. Also smoker since age 20. HTN and HLD also present. Neuropathy is present, secondary to diabetes. History of dvt. Hospital Course Hospital Course: Laboratory Tests 10/08/20 10/08/20 10/08/20 14:30 14:30 14:30 WBC 16.5 H RBC 5.65 H Hgb 17.0 H Hct 50.1 H MCV 88.7 MCH 30.0 MCHC 33.8 RDW 12.9 Plt Count 344 MPV 7.9 Neut % (Auto) 76.4 Lymph % (Auto) 16.7 [place] % (Auto) 4.8 Eos % (Auto) 1.6 Baso % (Auto) 0.5 Neut # (Auto) 12.6 H Lymph # (Auto) 2.8 [place] # (Auto) 0.8 Eos # (Auto) 0.3 Baso # (Auto) 0.1 Total Counted 100 Neutrophils % (Manual) 71 Lymphocytes % (Manual) 22 Monocytes % (Manual) 7 Platelet Estimate Normal RBC Morphology Normal APTT Activated Clotting Time Sodium 137 Potassium 3.7 Chloride 100 Carbon Dioxide 29 Anion Gap 11.7 BUN 11 Creatinine 0.60 Estimated Creat Clear 225 Estimated GFR 109 Est GFR ( Amer) 132 Glucose 265 H POC Glucose Hemoglobin A1c Calcium 10.3 H Total Bilirubin Direct Bilirubin Conjugated Bilirubin Indirect Bilirubin Unconjugated Bilirubin AST ALT Alkaline Phosphatase Total Protein Albumin Globulin Albumin/Globulin Ratio Triglycerides Cholesterol LDL Cholesterol Direct VLDL Cholesterol HDL Cholesterol Cholesterol/HDL Ratio Serum HCG, Qual Negative Urine Color Urine Appearance Urine pH Ur Specific [place] Urine Protein Urine Glucose (UA) Urine Ketones Urine Blood Urine Nitrate Urine Bilirubin Urine Urobilinogen Ur Leukocyte Esterase Ur Squamous Epith Cells Urine Bacteria SARS-CoV-2 IgG Ab (Rapid) SARS-CoV-2 IgM Ab (Rapid) 10/08/20 10/08/20 10/08/20 14:30 16:10 16:30 WBC RBC Hgb Hct MCV MCH MCHC RDW Plt Count MPV Neut % (Auto) Lymph % (Auto) [place] % (Auto) Eos % (Auto) Baso % (Auto) Neut # (Auto) Lymph # (Auto) [place] # (Auto) Eos # (Auto) Baso # (Auto) Total Counted Neutrophils % (Manual) Lymphocytes % (Manual) Monocytes % (Manual) Platelet Estimate RBC Morphology APTT Activated Clotting Time 270 H* Sodium Potassium Chloride Carbon Dioxide Anion Gap BUN Creatinine Estimated Creat Clear Estimated GFR Est GFR ( Amer) Glucose POC Glucose Hemoglobin A1c Calcium Total Bilirubin Direct Bilirubin Conjugated Bilirubin Indirect Bilirub
[2020-10-12 12:42] LABS: POC Glucose,Bedside 180 (70-110)
--- NOTE | 2020-10-12 13:53 | HMH.PHACLD ---
Cyndy Padron has received discharge medication counseling on the following medications: LIPITOR (STOPPING ZOCOR) PLAVIX ASPIRIN GABAPENTIN DOSE CHANGE NORCO XARELTO NICOTINE PATCHES PATIENT IS TO CONTINUE ALL OTHER HOME MEDICATIONS WITH THE EXCEPTION OF SIMVASTATIN. PATIENT VERBALIZED UNDERSTANDING AND HAD NO QUESTIONS AT THIS TIME. PATIENT IS ON LISINOPRIL. NO BETA SHUKRI, HOWEVER PATIENT RECEIVED PERIPHERAL STENT THEREFORE BETA SHUKRI IS NOT NECESSARY. -AMEYA TAPIA, KATHRYND
== END 2020-10-12 13:57 | disposition home or self-care (01) | DRG 271 ==
LOC: 2ND 19:37
PROVIDERS: Family Medicine; Internal Medicine; Nurse Practitioner Family; Admitting Provider Emergency Medicine; PCP Physician Assistant; Visit Provider Emergency Medicine
PROC: 04CL3ZZ Extirpation of Matter from Left Femoral Artery, Percutaneous Approach (ICD-10-PCS; principal; 2020-10-08 14:15)
DX: I70.212 Atherosclerosis of native arteries of extremities with intermittent claudication, left leg (principal); I74.8 Embolism and thrombosis of other arteries; I42.9 Cardiomyopathy, unspecified; I77.1 Stricture of artery; I70.222 Atherosclerosis of native arteries of extremities with rest pain, left leg; Z72.0 Tobacco use; Z79.4 Long term (current) use of insulin; Z79.899 Other long term (current) drug therapy; I10 Essential (primary) hypertension; E11.42 Type 2 diabetes mellitus with diabetic polyneuropathy; E11.51 Type 2 diabetes mellitus with diabetic peripheral angiopathy without gangrene
CPT/HCPCS: 37211; 37213; 36247; 36415; 37184; 37185; 37226; 75630; 80048; 80053; 80061; 80076; 81001; 82962; 83036; 84703; 85007; 85025; 85347; 85730; 86328; 93923; 94761; 99152; 99153; C1725; C1760; C1766; C1769; C1876; J1644; J2405; J2997; Q9966

== ENCOUNTER → 2020-10-16 10:56 | Outpatient (CLI) | payer OTHER, SELFPAY ==
[2020-10-16 11:18] LABS: Blood Urea Nitrogen 9 mg/dl (7-17); Estimated Glomerular Filt Rate 91 ml/min (>60); GFR (African American) 111 ML/MIN (>60)
[2020-10-16 11:20] LABS: Hematocrit 48.3 % (37.0-47.0); Hemoglobin 16.3 g/dL (12.2-16.2)
== END ==
PROVIDERS: Visit Provider Internal Medicine
DX: R71.8 Other abnormality of red blood cells (principal)
CPT/HCPCS: 36415; 82565; 84520; 85014; 85018

== ENCOUNTER → 2020-10-22 06:16 | Outpatient (CLI) | payer OTHER, SELFPAY ==
--- NOTE | 2020-10-22 06:17 | CA_ITS ---
APPROVED REPORT EXAM: Comprehensive 2D, Doppler, and color-flow Echocardiogram Cartridge Belt Puncher: Patsy Martines RVT Ht: 5 ft 8 in Wt: 255lbs BSA: 2.27 BP: 148/92 mmHg Indications: sinus tach,cm,smoker,htn,hld,pad 2D Dimensions LVOT 2.47 cm (M/F) 1.5-2.5 M-Mode Dimensions RVDd 2.12 cm (0.9-2.6) LA Diam 3.38 cm (1.9-4.0) LVDd 5.52 cm (3.5-5.7) Ao Diam 3.60 cm (2.0-3.7) LVDs 4.03 cm (3.5-5.7) IVSd 0.64 cm (0.6-1.1) PWd 0.93 cm (0.6-1.1) EF (Teich) 52.10% FS 27.00% EDV (Teich) 148.70 mL ESV (Teich) 71.30 mL LV Diastology MED E' 10.80 (< 7 cm/sec) LAT E' 11.40 (<10 cm/sec) Pulmonary Valve PV Peak Velocity 64.00 (50-150 cm/s) Left Ventricle Clinically difficult study because of the patient fact in poor acoustic windows. Left atrium is mildly enlarged, left ventricle is normal size, left ventricle wall thickness is normal, there is preserved left ventricular systolic function, visually estimated ejection fraction 50% with no regional wall motion abnormality, diastolic parameters are inconclusive. Right Ventricle Right atrium and right ventricle are mildly enlarged with normal contractility. Aortic Valve Aortic valve is grossly normal, there is no aortic stenosis or aortic insufficiency. Mitral Valve Mitral valve is grossly normal, there is mild mitral regurgitation. Tricuspid Valve Tricuspid valve is grossly normal, there is mild tricuspid regurgitation, tricuspid regurgitation jet velocity is inadequate for calculation of the right ventricular systolic pressure. Pulmonic Valve Pulmonic valve is poorly visualized. Great Vessels Aortic root is normal size. Pericardium No significant pericardial effusion noted. Conclusion 1. Normal left ventricular size, preserved left ventricular systolic function, visually estimated ejection fraction 50% with no regional wall motion abnormality, diastolic parameters are inconclusive. 2. Mildly enlarged right ventricle with normal contractility. 3. Mild mitral and tricuspid regurgitation. 4. No significant pericardial effusion noted. Electronically signed by : Alec Rueda, 10/22/2020 16:28:08
--- NOTE | 2020-10-22 06:17 | NM_ITS ---
APPROVED REPORT Exam: Nuclear Stress Test Indication: hypertension Patient Location: Outpatient Stress Tech: Meliza Whelan [place] Tech:FLASH Zamora RT(R)(N) Ht: 5 ft 8 in Wt: 255 lbs Bra Size: 48D HR: 110 bpm BP: 139/94 mmHg BSA: 2.27 m2 BMI: 38.7 History: hypertension..family history Procedure: Patient received a 0.4 mg of intravenous Lexiscan, resting heart rate 110 bpm, resting blood pressure 139/94 mmHg, with Lexiscan maximum heart rate achived was 126 bpm which is Less than 85 % of the maximum predicted heart rate and blood pressure was 140/96 mmHg. Electrocardiogram Resting electrocardiogram showed sinus rhythm nonspecific ST-T changes, with Lexiscan there is less than 1.[address] segment depression noted from the baseline EKG. The EKG portion of the Lexiscan is nondiagnostic. Cardiac Stress and Resting SPECT Images: Cardiac Stress and Resting SPECT images were obtained using technetium 99m Myoview 32.9 mCi stress and 10.15 mCi at rest. Gated SPECT for analysis of segmental wall motion and calculation of the ejection fraction also done. Prone imaging was also done. Cardiac stress and resting SPECT images show a fixed defect in the anterior wall is likely secondary to soft tissue attenuation, no reversible ischemia seen, computer derived ejection fraction is 41% with left ventricular global hypokinesis. Right ventricle is mildly enlarged with normal contractility. Conclusion: 1. The EKG portion of the Lexiscan is nondiagnostic. 2. No scintigraphic evidence of reversible ischemia seen, computer derived ejection fraction is 41% with left ventricular global hypokinesis, right ventricle is mildly enlarged with normal contractility. 3. Abnormal Lexiscan Myoview study due to low ejection fraction. Electronically signed by : Alec Rueda, 10/22/2020 14:10:49
--- NOTE | 2020-10-22 06:17 | CA_ITS ---
APPROVED REPORT Exam: Pharmacologic Technologist: IDA Whitehead Ht: 5 ft 8 in Wt: 255 lbs BSA: 2.27 m2 Medical History Medications: Lisinopril,,,,, Aspirin,,,,, Metformin,,,,, Gabapentin,,,,, Atorvastatin,,,,, XaRELTO,,,,, Januvia,,,,, Plavix,,,,, DulaGLUTIDE,,,,, Stress Test Details Test: LEXISCAN HR Resting HR: 123 bpm Max Heart Rate (APMHR): 177 bpm Max HR Achieved: 145 bpm Target HR (85% APMHR): 150 bpm % of APMHR: 81 Recovery HR: 126 bpm BP Resting BP: 139/94 mmHg Max BP: 161/98 mmHg Recovery BP: 140.0/96.0 mmHg ECG Resting ECG: Sinus Tachycardia, otherwise normal Clinical Exercise duration: 04:00 min Highest Stage Achieved: Exercise capacity: 1.0 METs Stress ECG Conclusion Symptoms: Mild chest discomfort, mild SOA and malaise. Arrythmias/Ectopy: None. ST-T Changes: 0.5mm horizontal ST depression inferiorly and laterally. Conclusion: Unremarkable Lexiscan stress, Myoview images reported separately. Test Summary REST . . . . . . . Resting REST 06:00 . . 123 . 139/ 94 . . Stage 1 . . . . . . . Cardiolite injected Stage 1 01:00 . . 135 . . . . Stage 2 01:00 . . 145 . 161/ 98 . . Stage 3 01:00 . . 143 . 161/ 92 . . Stage 4 01:00 . . 140 . 156/ 87 . Stop exercise at 04:00 RECOVERY 01:00 . . 138 . 145/ 93 . . RECOVERY 02:00 . . 128 . 145/ 93 . . RECOVERY 03:00 . . 130 . 158/104 . . RECOVERY 04:00 . . 128 . 140/ 96 . . RECOVERY 04:17 . . 128 . 140/ 96 . . Electronically signed by : Alec Rueda, 10/22/2020 14:07:08
== END ==
PROVIDERS: PCP Physician Assistant; Visit Provider Internal Medicine Cardiovascular Disease
DX: R00.0 Tachycardia, unspecified (principal); I73.9 Peripheral vascular disease, unspecified; I10 Essential (primary) hypertension
CPT/HCPCS: 78452; 93017; 93306; A9502; J2785

== ENCOUNTER → 2021-01-12 14:21 | Outpatient (CLI) | payer OTHER, SELFPAY ==
[2021-01-12 15:13] LABS: Basophils # 0.1 K/mm3 (0-0.2); Basophils % 0.6 % (0.1-2.0); Eosinophils # 0.2 K/mm3 (0.0-0.4); Eosinophils % 1.1 % (0.1-12.0); Hematocrit 41.5 % (37.0-47.0); Hemoglobin 13.7 g/dL (12.2-16.2); Lymphocytes # 3.7 K/mm3 (0.7-4.5); Lymphocytes % 28.7 % (10-50); Mean Corpuscular HGB Conc 33.1 g/dL (31.8-35.4); Mean Corpuscular Hemoglobin 28.6 pg (27.0-31.2); Mean Corpuscular Volume 86.3 fl (81-99); Mean Platelet Volume 7.2 fl (7.4-10.4); Monocytes # 0.7 K/mm3 (0.1-1.0); Neutrophils # 8.3 K/mm3 (1.8-7.8); Neutrophils % 64.5 % (37.0-80.0); Platelet Count 396 K/mm3 (142-424); Red Blood Count 4.81 M/mm3 (4.20-5.40); White Blood Count 12.9 K/mm3 (4.8-10.8)
[2021-01-12 15:24] LABS: Hemoglobin A1C 7.2 % (4.0-6.0)
[2021-01-12 15:56] LABS: Chloride 106 mmol/L (98-107); Sodium 139 mmol/L (136-145)
[2021-01-12 15:57] LABS: Potassium 4.7 mmoL/L (3.5-5.1)
[2021-01-12 15:59] LABS: Alanine Aminotransferase 19 U/L (12-78); Albumin/Globulin Ratio 1.6 (1.1-1.8); Alkaline Phosphatase 87 U/L (38-126); Anion Gap 11.7 mEq/L (5-15); Aspartate Amino Transferase 16 U/L (14-36); Bilirubin,Total 0.4 mg/dl (0.2-1.3); Blood Urea Nitrogen 7 mg/dl (7-17); Calcium 9.7 mg/dl (8.4-10.2); Carbon Dioxide 26 mmol/L (22.0-30.0); Cholesterol 142 mg/dl (140-200); Estimated Glomerular Filt Rate 78 ml/min (>60); GFR (African American) 95 ML/MIN (>60); Globulin 2.5 g/dL (1.3-3.2); Glucose 136 mg/dl (74-100); Total Protein,Serum 6.5 g/dl (6.3-8.2); Triglycerides 128 mg/dl (30-150); VLDL Cholesterol 26 mg/dL (0-40)
[2021-01-12 16:00] LABS: Chol/HDL Ratio 3.6 (1-3.5); HDL Cholesterol 40 mg/dl (40-60)
[2021-01-12 16:11] LABS: Direct LDL Cholesterol 83.68 mg/dL (100-129)
== END ==
PROVIDERS: Visit Provider Nurse Practitioner Family
DX: E11.9 Type 2 diabetes mellitus without complications (principal); Z79.84 Long term (current) use of oral hypoglycemic drugs
CPT/HCPCS: 36415; 80053; 80061; 82043; 83036; 85025

== ENCOUNTER 2021-03-09 13:00 | Outpatient (RCR) | payer OTHER, SELFPAY ==
--- NOTE | 2021-02-15 15:05 | HMH.PTOPEV ---
PT Outpatient Evaluation Rehab PT Outpatient Evaluation Start: 02/15/21 13:44 Freq: Status: Active Protocol: Document 02/15/21 14:03 EMILY (Rec: 02/15/21 15:05 EMILY [id number]) Electronically Signed By Cole Rodrigues, PT 02/15/21 14:03 Outpatient Therapy Subjective History Subjective History Pt reports h/o chronic L foot pain with severe N&T since Aug, secondary to PAD and DM . Pt reports stent placement in LLE x2 in , reports improved pain in L foot, but 'it still hurts to walk and stand for very long'. Pt reports 'some limitations in L ankle flexibility'. PMH: PAD, DM, neuropathy Chief Complaint Pain,Stiff,Paresthesia Symptom Type Ache,Dull,Stabbing,Numbness, Tingling Symptoms Relieved By Rest/Positioning,Prescription Meds Symptoms Aggravated By Standing,Walking Prior Functional Limitations Standing,Walking Current Functional Limitations Housework,Standing,Walking Symptom Description Constant but Variable Level of pain today (0-10) 8 Pain scale - at its best (0-10) 5 Pain scale - at its worst (0-10) 10 Ankle/Foot Eval Gait Observation General Gait Pattern Observation Antalgic Gait Palpation Tenderness left Ankle/Foot Palpation Findings None/Normal Ankle/Foot Palpation Overall Comment insensate L foot ROM Ankle/Foot Dorsiflexion w/Knee Extended 0-10 Active Range Motion (degrees) Ankle/Foot Plantar Flexion Active Range 0-30 of Motion (degrees) Ankle/Foot Eversion Active Range of 0-12 Motion (degrees) Ankle/Foot Inversion Active Range of 0-30 Motion (degrees) MMT Ankle Dorsiflexion Strength Grade 5 Normal Ankle Plantarflexion Strength Grade 5 Normal Foot Eversion Strength Grade 5 Normal Foot Inversion Strength Grade 5 Normal Neuro tests absent sensation to monofilament Yes: 1/8 L FOOT W/[employer] Outpatient Therapy Assessment Impairments Problems/Impairmments Palpation Tenderness,Impaired Range of Motion,Impaired Strength,Impaired Gait Pattern ,Impaired Walking,Impaired Standing,Impaired Household Care,Subjective C/O Pain, Impaired Self Care/Self Management Prognosis Rehab Potential Good Clinical Impre
== END 2021-03-09 13:05 | disposition home or self-care (01) ==
LOC: PT 13:00
PROVIDERS: PCP Physician Assistant; Visit Provider Nurse Practitioner Family
DX: M79.605 Pain in left leg (principal); I73.9 Peripheral vascular disease, unspecified
CPT/HCPCS: 97110; 97163

== ENCOUNTER 2021-03-12 11:31 | Emergency (ER) | payer OTHER, SELFPAY ==
[2021-03-12 11:46] VITALS: BP 133/87; PULSE 132; RESP 20; TEMP 36.8; O2SAT 97; BMI 40.1
[2021-03-12 11:52] VITALS: BP 133/87; PULSE 132; RESP 20; TEMP 36.8; O2SAT 97
--- NOTE | 2021-03-12 11:52 | XR_ITS ---
PROCEDURE: XR CHEST 2V CLINICAL HISTORY: SOB COMPARISON: CR Chest from 04/01/2019 CR XR CHEST 2V from 09/10/2019 CR XR CHEST 2V from 10/04/2020 FINDINGS: The cardiomediastinal silhouette and pulmonary vascularity are within normal limits. The lungs are clear without infiltrates, suspicious nodules, or pleural effusions. No acute bony abnormalities. IMPRESSION: No acute findings. Dictated by: Maximo Cast MD 03/12/2021 12:12 Maximo Cast MD in [facility] 03/12/2021 12:12
--- NOTE | 2021-03-12 12:02 | HMH.EDUTC ---
[facility] [place] Disposition Clinical Impression: COPD exacerbation Disposition: Home, Self-Care Condition on Discharge: Good Instructions: DI for Chronic Obstructive Pulmonary Disease Prescriptions: Doxycycline Monohydrate [Doxycycline Ogle 100mg Tab] 100 mg PO Q12 10 Days #20 tab Transmission Status: Pending to [facility] predniSONE [Prednisone 20mg Tab] 20 mg PO BID 5 Days #10 tab Transmission Status: Pending to [facility] Promethazine/Dextromethorphan [Promethazine-Dm Syrup] 5 ml PO Q4HP PRN 10 Days #120 ml PRN Reason: Cough Transmission Status: Pending to [facility] Referrals: Milady Grullon APRN [Primary Care Provider] - Time of Disposition: 12:29 Medical Decision Making - Mikey Inquiry Pt receiving controlled substance: No Vital Signs: 03/12/21 11:46 03/12/21 11:52 Temperature 98.3 F 98.3 F Temperature Source Oral Pulse Rate 132 H Pulse Rate [Left] 132 H Respiratory Rate 20 20 Blood Pressure 133/87 Blood Pressure [Right Arm] 133/87 Blood Pressure Mean [Right Arm] 102 02 Sat by Pulse Oximetry 97 Orders (Tests/Meds): ORDERS Category Date Time Status XR chest 2V Stat Exams 03/12/21 11:52 Taken - Radiology Data #1 Image(s): Chest Image Reviewed: Yes I reviewed the patient's radiology image Preliminary Findings: Normal/NAD FINDINGS: The cardiomediastinal silhouette and pulmonary vascularity are within normal limits. The lungs are clear without infiltrates, suspicious nodules, or pleural effusions. No acute bony abnormalities. IMPRESSION: No acute findings. [facility] [place] HPI - General Stated complaint: soa,cough,drainage Time Seen by Provider: 03/12/21 12:03 Mode of Arrival: Ambulatory Source of Information: Patient Limitations: No Limitations Description of Symptoms (Recalled from Triage Doc. by RN): Pt states that she has had a productive cough, SOB and weakness for a week. Pt is a smoker and a history of COPD. HEENT Symptoms (Recalled from RN notes): No Resp Symptoms (Recalled from RN notes): Yes Skin Symptoms (Recalled from RN notes): No MS Symptoms (Recalled from RN notes): Yes Functional Status (Recalled from RN notes): wnl - History of Present Illness Provider Complaint: Cough, weakness, SOA x 1 week. Productive cough. No fever. No body aches. No chills. No vomiting or diarrhea. She does smoke and history of COPD. Onset (ago): week(s) (1) Location: chest Relieving factors: none Exacerbating factors: none Associated symptoms: cough Treatments prior to arrival: none - Related Data Home Medications Medication Instructions Recorded Confirmed lisinopril 5 mg tablet 5 mg PO DAILY tab 02/04/21 02/04/21 metformin 500 mg tablet 500 mg PO BID tab 02/04/21 02/04/21 Previous Rx's Medication Instructions Recorded gabapentin 300 mg capsule 300 mg PO TID #90 cap 12/25/20 blood-glucose sensor See Rx Instructions MISCELLANE 02/04/21 .MEDSUPPLY #3 each blood-glucose transmitter See Rx Instructions .MEDSUPPLY #1 02/04/21 each dulaglutide 0.75 mg/0.5 mL See Rx Instructions .ROUTE 02/04/21 subcutaneous pen injector .COMPLEX #4 ml metoprolol succinate 50 mg 50 mg PO DAILY #30 tab 02/04/21 tablet,extended release 24 hr atorvastatin 40 mg tablet 40 mg PO HS #30 tab 02/09/21 clopidogrel 75 mg tablet 75 mg PO DAILY #30 tab 02/09/21 rivaroxaban 20 mg tablet 20 mg PO DAILY #30 tab 02/09/21 sitagliptin 50 mg tablet 50 mg PO DAILY #90 tab 02/09/21 alprazolam 0.25 mg tablet 0.25 mg PO BID PRN #14 tab 02/16/21 sertraline 100 mg tablet 100 mg PO DAILY #30 tab 02/16/21 Doxycycline Monohydrate 100 mg PO Q12 10 Days #20 tab 03/12/21 [Doxycycline Ogle 100mg Tab] Promethazine/Dextromethorphan 5 ml PO Q4HP PRN 10 Days #120 ml 03/12/21 [Promethazine-Dm Syrup] predniSONE [Prednisone 20mg 20 mg PO BID 5 Days #10 tab 03/12/21 Tab] Allergies Allergy/AdvReac Type Severity Reaction Status Date / Time No Know
== END 2021-03-12 12:31 | disposition home or self-care (01) ==
PROVIDERS: Emergency Provider Physician Assistant; PCP Nurse Practitioner Family
DX: J44.1 Chronic obstructive pulmonary disease with (acute) exacerbation (principal); I10 Essential (primary) hypertension; E11.9 Type 2 diabetes mellitus without complications; E78.5 Hyperlipidemia, unspecified; F17.210 Nicotine dependence, cigarettes, uncomplicated; Z79.899 Other long term (current) drug therapy
CPT/HCPCS: 71046; 99202; G0463

== ENCOUNTER 2022-09-16 01:21 | Emergency (ER) | payer BC, SELFPAY ==
[2022-09-16 01:22] VITALS: BP 172/101; PULSE 135; RESP 18; TEMP 36.4; O2SAT 100; BMI 34.8
[2022-09-16 01:34] VITALS: BMI 34.8
--- NOTE | 2022-09-16 01:35 | CT_ITS ---
PROCEDURE INFORMATION: Exam: CT Abdomen And Pelvis With Contrast Exam date and time: 09/16/2022 2:16 AM Age: 47 years old Clinical indication: Abdominal pain; Localized; Left upper quadrant (luq); Prior surgery; Surgery type: Csection; Additional info: Luq pain TECHNIQUE: Imaging protocol: Computed tomography of the abdomen and pelvis with contrast. Radiation optimization: All CT scans at this facility use at least one of these dose optimization techniques: automated exposure control; mA and/or kV adjustment per patient size (includes targeted exams where dose is matched to clinical indication); or iterative reconstruction. Contrast material: ISOVUE; Contrast volume: 75 ml; Contrast route: IV; COMPARISON: ABDPELWO CT abdomen pelvis wo con 02/15/2018 11:26 PM FINDINGS: Lungs: The visualized lung bases are clear. Pleural spaces: There are no pleural effusions. Heart: The visualized portions of the heart are unremarkable. There is no evidence of pericardial fluid collections. Diaphragm: A small hiatal hernia is present. Liver: There is diffuse decrease in hepatic parenchymal density consistent with fatty infiltration. There is mild enlargement of the liver measuring 22 cm. Gallbladder and bile ducts: There has been a cholecystectomy. Pancreas: There is subtle hazy contour to the proximal pancreas which could reflect subtle pancreatitis. Correlate with serologic markers. The pancreas is otherwise normal. Spleen: The spleen demonstrates punctate calcifications, consistent with remote granulomatous organism exposure. An accessory splenule is present. Adrenal glands: There is mild nodular nonspecific prominence to the lateral limb of the right adrenal gland measuring approximately 12 x 10 mm.The adrenal glands are otherwise within range of normal. Kidneys and ureters: The kidneys are normal. Stomach and bowel: Apparent mild proximal gastric mural thickening could be on the basis of incomplete distension but cannot exclude gastritis or other inflammatory or infiltrative process. Correlate clinically. The duodenum is unremarkable. Lack of gastrointestinal contrast limits evaluation of bowel. The colon is normal. Unopacified loops of small bowel are within range of normal. Appendix: A normal appendix is identified. Intraperitoneal space: No evidence of intraperitoneal free air. There is no evidence of free intraperitoneal or pelvic fluid. Vasculature: The aorta and iliac arteries demonstrate mild atherosclerotic calcification. There are numerous benign phleboliths in the pelvis. Lymph nodes: There is no evidence of pathologic adenopathy. Urinary bladder: The bladder is decompressed. Reproductive: The uterus is normal. The left ovary is normal. The right ovary is normal. Bones/joints: The thoracolumbar spine demonstrates mild degenerative changes at multiple levels. There is very slight retrolisthesis of L5 on S1.There is no evidence of acute fracture. There are mild degenerative changes of the hip joints. There are mild degenerative changes of the symphyseal pubic joint. There are mild degenerative changes of the sacroiliac joints. Soft tissues: Unremarkable. IMPRESSION: 1. Subtle hazy contour to the proximal pancreas which could reflect subtle pancreatitis. Correlate with serologic markers. 2. Fatty hepatic infiltration. 3. Mild hepatomegaly. 4. Apparent mild proximal gastric mural thickening could be on the basis of incomplete distension but cannot exclude gastritis or other inflammatory or infiltrative process. Correlate clinically. 5. Small hiatal hernia. 6. Mild nodular nonspecific prominence to the lateral limb of the right adrenal gland measu
--- NOTE | 2022-09-16 01:43 | HMH.EDABDPAI ---
Discharge Plan Disposition Patient Disposition: Home, Self-Care Chief Complaint: Abdominal Pain Prescriptions Prescriptions: No Action lisinopril 5 mg tablet 5 mg PO DAILY metformin 500 mg tablet 500 mg PO BID alprazolam [Xanax] 0.25 mg tablet 0.25 mg PO BID PRN (Reason: anxiety) Qty: 14 0RF Trulicity 0.75 mg/0.5 mL pen injector See Rx Instructions .ROUTE .COMPLEX Qty: 4 2RF Dose Instruction: INJECT 1 SYRINGE SUBCUTANEOUSLY ONCE A WEEK FOR 28 DAYS Rx Instructions: INJECT 1 SYRINGE SUBCUTANEOUSLY ONCE A WEEK FOR 28 DAYS metoprolol succinate 50 mg tablet extended release 24 hr 50 mg PO DAILY Qty: 30 2RF (DME) Dexcom G6 Sensor Device See Rx Instructions MISCELLANE .MEDSUPPLY Qty: 3 4RF Rx Instructions: As directed (DME) Dexcom G6 Transmitter Device See Rx Instructions .MEDSUPPLY Qty: 1 4RF Rx Instructions: As directed cephalexin 500 mg capsule 500 mg PO TID 10 Days Qty: 30 0RF prednisone 20 mg tablet 20 mg PO DAILY Qty: 18 0RF Rx Instructions: TID X 3 days, BID X 3 days, QD X 3 days benzonatate 200 mg capsule 200 mg PO TID PRN (Reason: cough) 10 Days Qty: 30 0RF albuterol sulfate [Proventil HFA] 90 mcg/actuation HFA aerosol inhaler 2 puff INHALATION Q6H Qty: 6.7 0RF Rx Instructions: administer with spacer gabapentin 300 mg capsule 300 mg PO TID Qty: 90 0RF Januvia 50 mg tablet 50 mg PO DAILY Qty: 90 0RF Xarelto 20 mg tablet 20 mg PO DAILY Qty: 30 3RF Rx Instructions: must administer with evening meal atorvastatin 40 mg tablet 40 mg PO HS Qty: 30 2RF clopidogrel 75 mg tablet 75 mg PO DAILY Qty: 30 11RF sertraline [Zoloft] 100 mg tablet 100 mg PO DAILY Qty: 30 0RF Referrals Follow up/Referrals: Milady Grullon APRN [Primary Care Provider] - See instructions Clinical Impressions Clinical Impression: Abdominal pain, T2DM (type 2 diabetes mellitus) Instructions Patient Instructions: DI for Acute Abdominal Pain Discharge ED Provider: Homero Johnson Abdominal Pain HPI General Chief Complaint: Abdominal Pain Stated Complaint: Abd pain, nausea, Time Seen by Provider: 09/16/22 01:43 Mode of Arrival: Ambulatory Source of Information: Patient, Significant Other and Medical Record Limitations: No Limitations Description of Symptoms (Recalled from ER Triage Doc. by RN): pt c/o LUQ pain and vomitting episodes times several weeks that haliyah progessive gotten worse History of Present Illness HPI narrative: pt with upper abd pain with nausea - recent increase in meds for diabetes MD complaint: abdominal pain Onset (ago): day(s) Consistency: intermittent Location: LUQ Severity: moderate Related Data Home Medications Medication Instructions Recorded Confirmed lisinopril 5 mg tablet 5 mg PO DAILY 02/04/21 04/08/21 metformin 500 mg tablet 500 mg PO BID 02/04/21 04/08/21 Previous Rx's Medication Instructions Recorded gabapentin 300 mg capsule 300 mg PO TID #90 caps 12/25/20 blood-glucose sensor (Dexcom G6 #3 ea 02/04/21 Sensor device) blood-glucose transmitter (Dexcom #1 ea 02/04/21 G6 Transmitter device) dulaglutide 0.75 mg/0.5 mL See Rx Instructions .Route 02/04/21 subcutaneous pen injector .COMPLEX #4 mL (Trulicity) metoprolol succinate 50 mg 50 mg PO DAILY #30 tabs 02/04/21 tablet,extended release 24 hr atorvastatin 40 mg tablet 40 mg PO HS #30 tabs 02/09/21 clopidogrel 75 mg tablet 75 mg PO DAILY #30 tabs 02/09/21 rivaroxaban 20 mg tablet (Xarelto) 20 mg PO DAILY #30 tabs 02/09/21 sitagliptin phosphate 50 mg tablet 50 mg PO DAILY #90 tabs 02/09/21 (Januvia) alprazolam 0.25 mg tablet (Xanax) 0.25 mg PO BID PRN anxiety #14 tabs 02/16/21 sertraline 100 mg tablet (Zoloft) 100 mg PO DAILY #30 tabs 03/19/21 albuterol sulfate 90 mcg/actuation 2 puff inhalation Q6H #6.7 grams 04/08/21 aerosol inhaler (Proventil HFA) benzonatate 200 mg capsule 200 mg P
[2022-09-16 01:46] LABS: Microscopic, Urine URINE MICROSCOPIC (MICROSCOPIC)
[2022-09-16 01:51] LABS: Appearance,Urine CLEAR (Clear); Bilirubin,Urine Negative (Negative); Blood, Urine Negative (Negative); Color,Urine YELLOW (Yellow); Glucose,Urine (UA) 3+ (Negative); Ketones,Urine Negative (Negative); Leukocyte Esterase,Urine Negative (Negative); Nitrate,Urine Negative (Negative); Protein,Urine Negative (Negative); Specific Gravity, Urine <= 1.005 (1.005-1.030); Urobilinogen,Urine 0.2 EU/dl (0.2)
[2022-09-16 01:54] LABS: Basophils # 0.4 K/mm3 (0-0.2); Eosinophils # 0.3 K/mm3 (0.0-0.4); Eosinophils % 1.9 % (0.1-12.0); Hemoglobin 17.1 g/dL (12.2-16.2); Lymphocytes # 6.3 K/mm3 (0.7-4.5); Lymphocytes % 35.6 % (10-50); Mean Corpuscular HGB Conc 33.6 g/dL (31.8-35.4); Mean Corpuscular Hemoglobin 29.2 pg (27.0-31.2); Mean Corpuscular Volume 87.1 fl (81-99); Mean Platelet Volume 8.1 fl (7.4-10.4); Monocytes # 0.9 K/mm3 (0.1-1.0); Monocytes % 5.2 % (1.7-9.3); Neutrophils # 9.7 K/mm3 (1.8-7.8); Neutrophils % 55.3 % (37.0-80.0); Platelet Count 447 K/mm3 (142-424); Red Blood Count 5.86 M/mm3 (4.20-5.40); White Blood Count 17.6 K/mm3 (4.8-10.8)
[2022-09-16 01:59] LABS: Alanine Aminotransferase 32 U/L (12-78); Albumin Level 4.7 g/dl (3.5-5.0); Albumin/Globulin Ratio 1.5 (1.1-1.8); Alkaline Phosphatase 103 U/L (38-126); Amylase 42 U/L (30-110); Anion Gap 10.1 mEq/L (5-15); Aspartate Amino Transferase 24 U/L (14-36); Bilirubin,Total 0.3 mg/dl (0.2-1.3); Blood Urea Nitrogen 12 mg/dl (7-17); Calcium 10.3 mg/dl (8.4-10.2); Carbon Dioxide 23 mmol/L (22.0-30.0); Chloride 106 mmol/L (98-107); Creatinine Clearance Estimated 133 mL/min (50-200); Estimated Glomerular Filt Rate 68 ml/min (>60); GFR (African American) 82 ML/MIN (>60); Globulin 3.2 g/dL (1.3-3.2); Glucose 195 mg/dl (74-100); Lipase 164 U/L (23-300); Potassium 4.1 mmoL/L (3.5-5.1); Sodium 135 mmol/L (136-145); Total Protein,Serum 7.9 g/dl (6.3-8.2)
[2022-09-16 02:00] LABS: Urine Pregnancy, HCG Qual. Negative (Negative)
[2022-09-16 02:02] LABS: MANUAL DIFFERENTIAL MANUAL DIFFERENTIAL (MANUAL DIFF)
[2022-09-16 02:06] LABS: C-Reactive Protein 14.1 mg/L (0-4)
[2022-09-16 02:12] LABS: Bacteria,Urine 1+ /lpf; WBC,Urine Occasional #/hpf (0-3)
[2022-09-16 02:26] LABS: Erythrocyte Sedimentation Rate 17 mm/hr (0-20)
[2022-09-16 02:29] LABS: Eosinophils % 1 % (0-3); Lymphocytes % 46 % (10-50); Monocytes % 3 % (2-9); Neutrophils % 49 % (42-76); Total Cells Counted 100
[2022-09-16 02:30] LABS: Platelet Estimate Normal; RBC Morphology Normal
[2022-09-16 03:50] LABS: Troponin I < 0.01 ng/ml (0.00-0.034)
[2022-09-16 05:23] VITALS: BP 157/78; PULSE 100; RESP 18; TEMP 36.4; O2SAT 97
== END 2022-09-16 05:43 | disposition home or self-care (01) ==
PROVIDERS: Emergency Provider Emergency Medicine; PCP Nurse Practitioner Family
DX: R10.32 Left lower quadrant pain (principal); R11.2 Nausea with vomiting, unspecified; R05.9 Cough, unspecified; E78.5 Hyperlipidemia, unspecified; E11.40 Type 2 diabetes mellitus with diabetic neuropathy, unspecified; F41.9 Anxiety disorder, unspecified; F17.210 Nicotine dependence, cigarettes, uncomplicated; Z79.01 Long term (current) use of anticoagulants; Z79.02 Long term (current) use of antithrombotics/antiplatelets; Z79.51 Long term (current) use of inhaled steroids; Z79.52 Long term (current) use of systemic steroids; Z79.84 Long term (current) use of oral hypoglycemic drugs; Z79.899 Other long term (current) drug therapy
CPT/HCPCS: 74177; 80053; 81001; 81025; 82150; 83690; 84145; 84484; 85007; 85025; 85651; 86140; 96361; 96374; 96375; 99285; J2405; Q9967

== ENCOUNTER → 2022-09-28 10:01 | Outpatient (CLI) | payer BC, SELFPAY ==
--- NOTE | 2022-09-28 10:07 | FL_ITS ---
FINAL REPORT CLINICAL HISTORY: GERD, fluoro time 1. FINDINGS: ESOPHAGRAM HISTORY: Dysphagia. PROCEDURE: The patient ingested barium. Effervescent crystals were also administered. Spot and overhead films were obtained. FINDINGS: The esophagus is normal. There is a small sliding-type hiatal hernia. There is no gastroesophageal reflux. There is esophageal dysmotility with the presence of secondary and tertiary contractions. IMPRESSION: Esophageal dysmotility. Small sliding type hiatal hernia. Films reviewed , interpreted and dictated by Dr. Ernandez Transcribed by Donal Nava PA-C. Reviewed, Interpreted and Dictated by Robert Ernandez III, MD Transcribed by [employer] Authenticated and [facility]
== END ==
PROVIDERS: PCP Nurse Practitioner Family; Visit Provider Nurse Practitioner Family
DX: K21.9 Gastro-esophageal reflux disease without esophagitis (principal)
CPT/HCPCS: 74220

== ENCOUNTER → 2022-10-21 13:10 | Outpatient (CLI) | payer BC, SELFPAY ==
--- NOTE | 2022-10-21 13:15 | US_ITS ---
FINAL REPORT CLINICAL HISTORY: pad, current smoker, HTN, DM, hyperlipidemia, left weak pulse, bilateral claudication, left foot skin color changes, hx of two peripheral stents LE. FINDINGS: COMPLETE ANKLE/BRACHIAL INDICES BILATERAL Complete ankle brachial indices were obtained. The right ANTOINE is 1.1. The left ANTOINE is 0.80. IMPRESSION: ABIs within normal limits on the right. Mild to moderate peripheral artery disease on the left. Reviewed, Interpreted and Dictated by Kari Peng MD Transcribed by Nicci Luna Authenticated and [facility]
== END ==
PROVIDERS: PCP Nurse Practitioner Family; Visit Provider Nurse Practitioner Family
DX: I73.9 Peripheral vascular disease, unspecified (principal)
CPT/HCPCS: 93923

== ENCOUNTER → 2022-11-23 11:45 | Outpatient (CLI) | payer BC, SELFPAY ==
--- NOTE | 2022-11-23 12:02 | CT_ITS ---
FINAL REPORT CLINICAL HISTORY: PAD/hx leg stent/abnl matteo COMPARISON: 09/16/2022 FINDINGS: Thin section axial CT images of the abdomen, pelvis and lower extremities were obtained with contrast. Multiplanar reformatted images were also obtained and reviewed. ABDOMEN AND PELVIS: There is mild vascular calcification. There is no abdominal aortic aneurysm or dissection. The celiac axis and proximal superior mesenteric artery are unremarkable. There is no renal artery stenosis. The inferior mesenteric artery is patent. There is no significant stenosis of the right common iliac artery or external right iliac artery. There is no significant stenosis of the left common iliac artery or external left iliac artery. There is mild stenosis of the proximal left internal iliac artery. RIGHT LOWER EXTREMITY: There is no significant stenosis of the right common femoral or superficial femoral arteries. The right deep femoral artery is patent. The right popliteal artery is patent. There is three-vessel runoff to the distal lower leg. LEFT LOWER EXTREMITY: Left superficial artery stent is present which is occluded. The common femoral and deep femoral arteries are patent. There is collateral filling of the left popliteal artery. The anterior tibial and peroneal arteries are patent. The proximal posterior tibial artery is occluded with reconstitution near the ankle. OTHER FINDINGS: The patient is status post cholecystectomy. The appendix is normal. IMPRESSION: No significant vascular disease. Reviewed, Interpreted and Dictated by Robert Ernandez III, MD Transcribed by Nicci Luna Authenticated and [facility]
[2022-11-23 12:49] LABS: Blood Urea Nitrogen 5 mg/dl (7-17); Estimated Glomerular Filt Rate 108 ml/min (>60); GFR (African American) 131 ML/MIN (>60)
== END ==
PROVIDERS: PCP Nurse Practitioner Family; Visit Provider Physician Assistant
DX: I99.8 Other disorder of circulatory system (principal); R68.89 Other general symptoms and signs; I10 Essential (primary) hypertension; I73.9 Peripheral vascular disease, unspecified; Z72.0 Tobacco use
CPT/HCPCS: 36415; 75635; 82565; 84520; Q9967

== ENCOUNTER 2023-04-19 20:57 | Emergency (ER) | payer BC, SELFPAY ==
--- NOTE | 2023-04-19 20:56 | ECG_ITS ---
APPROVED REPORT Exam: Resting ECG HR:140 bpm ECG Measurements Heart Rate 140 AXES [place] 125 P 62 QRSd 106 QRS 87 QT 331 T 46 QTc 412 Conclusion SINUS TACHYCARDIA, POSSIBLE ATRIAL FLUTTER NONSPECIFIC T-WAVE ABNORMALITY ABNORMAL RHYTHM ECG UNCONFIRMED REPORT Electronically signed by : Elijah Bartholomew MD 04/20/2023 21:25:32
[2023-04-19 20:57] VITALS: BP 167/105; PULSE 143; RESP 22; TEMP 37.1; O2SAT 98; BMI 38.9
--- NOTE | 2023-04-19 21:02 | PC.NURSE ---
Dr. Perkins at [facility]
--- NOTE | 2023-04-19 21:04 | CT_ITS ---
PROCEDURE INFORMATION: Exam: CTA Chest With Contrast Exam date and time: 04/19/2023 9:38 PM Age: 48 years old Clinical indication: Shortness of breath; Additional info: Chest pain, SOA, h/o clot, missed xarelto TECHNIQUE: Imaging protocol: Computed tomographic angiography of the chest with contrast. Exam focused on the arteries. 3D rendering (Not supervised by radiologist): MIP and/or 3D reconstructed images were created by the technologist. Radiation optimization: All CT scans at this facility use at least one of these dose optimization techniques: automated exposure control; mA and/or kV adjustment per patient size (includes targeted exams where dose is matched to clinical indication); or iterative reconstruction. Contrast material: ISOVUE; Contrast volume: 100 ml; Contrast route: INTRAVENOUS (IV); REPORTING DATA: Count of CT and Cardiac NM exams in prior 12 months: This patient has received 2 known CTs and 0 known cardiac nuclear medicine studies in the 12 months prior to the current study. COMPARISON: CR XR CHEST PORTABLE 04/19/2023 9:09 PM FINDINGS: Pulmonary arteries: No visualized pulmonary embolus. The subsegmental pulmonary arteries are subobtimally demonstrated, and cannot be completely cleared. Aorta: Unremarkable. No aortic aneurysm. No aortic dissection. Lungs: See Pleural spaces finding. Pleural spaces: No lobar consolidation, pleural effusion or pulmonary edema. Heart: Unremarkable. No cardiomegaly. No pericardial effusion. Coronary arteries: No significant coronary artery calcifications. Lymph nodes: Unremarkable. No enlarged lymph nodes. Gallbladder and bile ducts: Cholecystectomy. Bones/joints: Unremarkable. No acute fracture. Soft tissues: Indeterminate circumscribed 12 mm nodule left breast. Other findings: Old granulomatous disease. No other acute pathology seen. As above. IMPRESSION: 1. No visualized pulmonary embolus. The subsegmental pulmonary arteries are subobtimally demonstrated, and cannot be completely cleared. 2. Indeterminate circumscribed 12 mm nodule left breast. 3. No lobar consolidation, pleural effusion or pulmonary edema. 4. No other acute pathology seen. As above.
--- NOTE | 2023-04-19 21:04 | CT_ITS ---
PROCEDURE INFORMATION: Exam: CTA Abdomen and Pelvis With Contrast Exam date and time: 04/19/2023 9:38 PM Age: 48 years old Clinical indication: Abdominal pain; Generalized; Additional info: Gen abd pain/tenderness TECHNIQUE: Imaging protocol: Computed tomographic angiography of the abdomen and pelvis with contrast. Exam focused on the arteries. 3D rendering (Not supervised by radiologist): MIP and/or 3D reconstructed images were created by the technologist. Radiation optimization: All CT scans at this facility use at least one of these dose optimization techniques: automated exposure control; mA and/or kV adjustment per patient size (includes targeted exams where dose is matched to clinical indication); or iterative reconstruction. Contrast material: ISOVUE; Contrast volume: 100 ml; Contrast route: INTRAVENOUS (IV); REPORTING DATA: Count of CT and Cardiac NM exams in prior 12 months: This patient has received 2 known CTs and 0 known cardiac nuclear medicine studies in the 12 months prior to the current study. COMPARISON: CT ANGIO ABDOMEN/FEMORAL 11/23/2022 1:12 PM FINDINGS: Aorta: No aortic aneurysm. No aortic dissection. Celiac trunk and mesenteric arteries: There is a new short segment nonobstructive focus of thrombus in the superior mesenteric artery. Branching distal to this fills. Renal arteries: Duplicated left renal arteries. Right iliac arteries: No occlusion or significant stenosis. Left iliac arteries: No occlusion or significant stenosis. Other arteries: Limited atherosclerosis without dissection or aneurysm. Liver: Fatty liver. Gallbladder and bile ducts: Cholecystectomy. Pancreas: Unremarkable. No mass. No ductal dilation. Spleen: Unremarkable. No splenomegaly. Adrenal glands: Unchanged indeterminate 17 mm right adrenal nodule most likely an adenoma. Kidneys and ureters: Unremarkable. No solid mass. No hydronephrosis. Stomach and bowel: Small bowel wall thickening without surrounding inflammation, which may represent incomplete distension or limited enteritis. Fluid throughout the colon to the rectum consistent with impending diarrhea. No diverticulitis or colitis. Appendix: Normal appendix. Intraperitoneal space: Unremarkable. No free air. No significant fluid collection. Lymph nodes: Unremarkable. No enlarged lymph nodes. Urinary bladder: Unremarkable. No mass. Reproductive: Unremarkable as visualized. Bones/joints: No acute fracture. Soft tissues: Unremarkable. IMPRESSION: 1. There is a new short segment nonobstructive focus of thrombus in the proximal superior mesenteric artery. Branching distal to this fills. 2. Small bowel wall thickening without surrounding inflammation, which may represent incomplete distension or limited enteritis. 3. Fluid throughout the colon to the rectum consistent with impending diarrhea. No diverticulitis or colitis.
--- NOTE | 2023-04-19 21:04 | XR_ITS ---
PROCEDURE INFORMATION: Exam: XR Chest Exam date and time: 04/19/2023 9:09 PM Age: 48 years old Clinical indication: Shortness of breath; Additional info: Cp, SOA TECHNIQUE: Imaging protocol: Radiologic exam of the chest. Views: 1 view. COMPARISON: CR XR CHEST 2V 03/12/2021 11:49 AM FINDINGS: Lungs: No lobar consolidation, pleural effusion or pulmonary edema. Pleural spaces: See Lungs finding. Heart/Mediastinum: Unremarkable. No cardiomegaly. Bones/joints: Unremarkable. IMPRESSION: No lobar consolidation, pleural effusion or pulmonary edema.
--- NOTE | 2023-04-19 21:11 | HMH.EDGENADL ---
Discharge Plan Disposition Patient Disposition: Xfer Short-Term Hosp Condition: Fair Prescriptions Prescriptions: No Action lisinopril 5 mg tablet 5 mg PO DAILY metformin 500 mg tablet 500 mg PO BID alprazolam [Xanax] 0.25 mg tablet 0.25 mg PO BID PRN (Reason: anxiety) Qty: 14 0RF Trulicity 0.75 mg/0.5 mL pen injector See Rx Instructions .ROUTE .COMPLEX Qty: 4 2RF Dose Instruction: INJECT 1 SYRINGE SUBCUTANEOUSLY ONCE A WEEK FOR 28 DAYS Rx Instructions: INJECT 1 SYRINGE SUBCUTANEOUSLY ONCE A WEEK FOR 28 DAYS (DME) Dexcom G6 Sensor Device See Rx Instructions MISCELLANE .MEDSUPPLY Qty: 3 4RF Rx Instructions: As directed (DME) Dexcom G6 Transmitter Device See Rx Instructions .MEDSUPPLY Qty: 1 4RF Rx Instructions: As directed albuterol sulfate [Proventil HFA] 90 mcg/actuation HFA aerosol inhaler 2 puff INHALATION Q6H Qty: 6.7 0RF Rx Instructions: administer with spacer simvastatin 20 mg tablet 20 mg PO gabapentin 300 mg capsule 300 mg PO HS Januvia 50 mg tablet 50 mg PO DAILY Qty: 90 0RF Xarelto 20 mg tablet 20 mg PO DAILY Qty: 30 3RF Rx Instructions: must administer with evening meal clopidogrel 75 mg tablet 75 mg PO DAILY Qty: 30 11RF metoprolol succinate 50 mg tablet extended release 24 hr 50 mg PO DAILY Qty: 90 1RF Referrals Follow up/Referrals: Milady Grullon APRN [Primary Care Provider] - See instructions Clinical Impressions Clinical Impression: 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 by RN): pt c/o n/v/d and epigastric pain since yesterday. pt has been diagnosed with hital hernia History of Present Illness HPI narrative: This patient is a 48-year-old female with a history of PAD status post stenting, DVT on Xarelto, type 2 diabetes, peripheral neuropathy, hypertension, and hyperlipidemia presenting to the emergency department for evaluation with concern for chest pain, shortness of breath, abdominal pain, nausea, and vomiting. The nausea and vomiting started yesterday as well as epigastric abdominal pain. It continued and worsened throughout the day today. She then developed chest pain, shortness of breath, and her abdominal pain became more generalized. She has not been able to take her medications at home as a result of the symptoms, including her Xarelto and her Trulicity for diabetes. She does note that she has a recent diagnosis of hiatal hernia. She denies any history of NE, A-fib, a flutter, or other cardiac disorders. She denies any dysuria or other symptoms. Related Data Home Medications Medication Instructions Recorded Confirmed lisinopril 5 mg tablet 5 mg PO DAILY 02/04/21 11/09/22 metformin 500 mg tablet 500 mg PO BID 02/04/21 11/09/22 simvastatin 20 mg tablet 20 mg PO 10/18/22 11/09/22 gabapentin 300 mg capsule 300 mg PO HS 11/09/22 Previous Rx's Medication Instructions Recorded blood-glucose sensor (Dexcom G6 #3 ea 02/04/21 Sensor device) blood-glucose transmitter (Dexcom #1 ea 02/04/21 G6 Transmitter device) dulaglutide 0.75 mg/0.5 mL See Rx Instructions .Route 02/04/21 subcutaneous pen injector .COMPLEX #4 mL (Trulicity) clopidogrel 75 mg tablet 75 mg PO DAILY #30 tabs 02/09/21 rivaroxaban 20 mg tablet (Xarelto) 20 mg PO DAILY #30 tabs 02/09/21 sitagliptin phosphate 50 mg tablet 50 mg PO DAILY #90 tabs 02/09/21 (Januvia) alprazolam 0.25 mg tablet (Xanax) 0.25 mg PO BID PRN anxiety #14 tabs 02/16/21 albuterol sulfate
[2023-04-19 21:17] LABS: Basophils # 0.1 K/mm3 (0-0.2); Basophils % 0.6 % (0.1-2.0); Eosinophils # 0.2 K/mm3 (0.0-0.4); Eosinophils % 1.2 % (0.1-12.0); Hematocrit 53.2 % (37.0-47.0); Hemoglobin 17.9 g/dL (12.2-16.2); Lymphocytes # 1.6 K/mm3 (0.7-4.5); Lymphocytes % 12.3 % (10-50); Mean Corpuscular HGB Conc 33.7 g/dL (31.8-35.4); Mean Corpuscular Hemoglobin 29.5 pg (27.0-31.2); Mean Corpuscular Volume 87.5 fl (81-99); Mean Platelet Volume 7.1 fl (7.4-10.4); Monocytes # 0.7 K/mm3 (0.1-1.0); Monocytes % 5.1 % (1.7-9.3); Neutrophils # 10.3 K/mm3 (1.8-7.8); Neutrophils % 80.7 % (37.0-80.0); Platelet Count 349 K/mm3 (142-424); Red Blood Count 6.08 M/mm3 (4.20-5.40); Red Cell Distribution Width 12.8 % (11.5-17.5); White Blood Count 12.8 K/mm3 (4.8-10.8)
[2023-04-19 21:18] LABS: VBG Base Excess -5.7 mmol/L (-2.4-2.3); VBG HCO3 16.6 mmol/L (23-30); VBG Oxygen Saturation 89.8 % (50-70); VBG PO2 48.9 mmol/L (28-40); VBG Total CO2 17.2 mmol/L (23-27)
[2023-04-19 21:21] LABS: VBG PCO2 19.4 mmol/L (35-51); VBG PH 7.55 mmol/L (7.31-7.41)
--- NOTE | 2023-04-19 21:21 | PC.WOUNDNOTE ---
[facility] results reported to Dr. Perkins
[2023-04-19 21:24] LABS: Alanine Aminotransferase 30 U/L (12-78); Albumin Level 4.7 g/dl (3.5-5.0); Albumin/Globulin Ratio 1.4 (1.1-1.8); Alkaline Phosphatase 104 U/L (38-126); Aspartate Amino Transferase 28 U/L (14-36); Bilirubin,Total 0.7 mg/dl (0.2-1.3); Blood Urea Nitrogen 22 mg/dl (7-17); Calcium 9.6 mg/dl (8.4-10.2); Carbon Dioxide 18 mmol/L (22.0-30.0); Chloride 103 mmol/L (98-107); Creatinine Clearance Estimated 143 mL/min (50-200); Estimated Glomerular Filt Rate 67 ml/min (>60); GFR (African American) 82 ML/MIN (>60); Globulin 3.4 g/dL (1.3-3.2); Glucose 221 mg/dl (74-100); Lipase 52 U/L (23-300); Sodium 133 mmol/L (136-145); Total Protein,Serum 8.1 g/dl (6.3-8.2)
[2023-04-19 21:25] LABS: Acetone, Serum (Rapid) Small (None Detect); Activated Partial Thrombo Time 25.8 seconds (22.8-30.6); Prothrombin Time 10.8 seconds (10.1-12.5)
[2023-04-19 21:30] VITALS: BP 164/106; PULSE 126; RESP 25; O2SAT 98
--- NOTE | 2023-04-19 21:33 | PC.NURSE ---
Pt to rad at this time.
[2023-04-19 21:38] LABS: Troponin I < 0.01 ng/ml (0.00-0.034)
[2023-04-19 21:41] LABS: T4 (Thyroxine) 11.4 ug/dl (5.53-11.0)
[2023-04-19 21:55] LABS: Thyroid Stimulating Hormone 2.74 uIU/mL (0.465-4.68)
[2023-04-19 21:58] VITALS: BP 122/84; PULSE 110; RESP 24; O2SAT 100
[2023-04-19 22:00] VITALS: BP 143/91; PULSE 115; RESP 24; O2SAT 100
--- NOTE | 2023-04-19 22:16 | PC.NURSE ---
Pt ambulatory to bathroom. Urine sample collected.
[2023-04-19 22:19] LABS: Microscopic, Urine URINE MICROSCOPIC (MICROSCOPIC)
[2023-04-19 22:30] VITALS: BP 133/86; PULSE 122; RESP 24; O2SAT 95
--- NOTE | 2023-04-19 22:33 | PC.NURSE ---
calling [facility] at this time.
--- NOTE | 2023-04-19 22:42 | PC.NURSE ---
[facility] to return call once they have gotten images through [employer].
[2023-04-19 22:44] LABS: Appearance,Urine CLEAR (Clear); Blood, Urine TRACE-I (Negative); Color,Urine YELLOW (Yellow); Glucose,Urine (UA) 2+ (Negative); Ketones,Urine 2+ (Negative); Leukocyte Esterase,Urine Negative (Negative); Nitrate,Urine Negative (Negative); PH,Urine 5.5 (5.0-8.5); Protein,Urine TRACE (Negative); Urobilinogen,Urine 0.2 EU/dl (0.2)
--- NOTE | 2023-04-19 22:52 | PC.NURSE ---
Dr Perkins speaking with Dr Benoit at this time from [facility]
--- NOTE | 2023-04-19 23:01 | PC.NURSE ---
Waiting recreation establishment manager back from hospitalist
[2023-04-19 23:06] LABS: Bilirubin,Urine 1+ (Negative)
--- NOTE | 2023-04-19 23:06 | PC.NURSE ---
Waiting sales relationship manager back from Dr. Maier at [facility]
[2023-04-19 23:11] LABS: Squamous Epithelial Cell,Urine Occasional #/hpf (0-5)
--- NOTE | 2023-04-19 23:19 | PC.NURSE ---
[facility] returned call Dr. Farfan accepted pt. Vascular to speak with ICU and ICU MD to return call.
--- NOTE | 2023-04-19 23:46 | PC.NURSE ---
MD on the phone with vascular MD at [facility]
--- NOTE | 2023-04-19 23:53 | PC.NURSE ---
pt has been accepted by dr Ren @ [facility]. awaiting call back with bed assignment
--- NOTE | 2023-04-20 00:35 | PC.NURSE ---
notified [facility] that pt is ready for transport to [facility]
[2023-04-20 00:46] VITALS: BP 134/76; PULSE 114; RESP 20; TEMP 37.1; O2SAT 96
[2023-04-20 01:03] LABS: Troponin I 0.01 ng/ml (0.00-0.034)
== END 2023-04-20 01:07 | disposition short-term general hospital (02) ==
PROVIDERS: Emergency Medicine; Emergency Provider Emergency Medicine; PCP Nurse Practitioner Family
DX: K55.019 Acute (reversible) ischemia of small intestine, extent unspecified (principal); E86.0 Dehydration; R00.0 Tachycardia, unspecified; E11.51 Type 2 diabetes mellitus with diabetic peripheral angiopathy without gangrene; E11.40 Type 2 diabetes mellitus with diabetic neuropathy, unspecified; I10 Essential (primary) hypertension; E78.5 Hyperlipidemia, unspecified; F17.210 Nicotine dependence, cigarettes, uncomplicated
CPT/HCPCS: 36415; 71045; 71275; 74174; 80053; 81001; 82009; 82803; 83605; 83690; 84436; 84443; 84484; 85025; 85610; 85730; 86850; 87040; 93005; 96361; 96374; 96375; 99291; J2405

== ENCOUNTER → 2023-05-09 14:12 | Outpatient (CLI) | payer BC, SELFPAY ==
--- NOTE | 2023-05-09 14:20 | MM_ITS ---
PROCEDURE INFORMATION: Exam: US Right Breast, Complete, Screening US Left Breast, Complete MG Bilateral Diagnostic Breast Tomosynthesis Exam date and time: 05/09/2023 2:30 PM Age: 48 years old Clinical indication: 12 mm nodule seen on CT chest; Family history of breast cancer TECHNIQUE: Imaging protocol: Complete ultrasound of all four quadrants of the right breast and the retroareolar regions, including ultrasound of the axilla when performed. Complete ultrasound of all four quadrants of the left breast and the retroareolar regions, including ultrasound of the axilla when performed. Bilateral Diagnostic tomosynthesis and 2D mammography including computer-aided detection (CAD) when performed. Unilateral or bilateral exam. COMPARISON: No relevant prior studies available. FINDINGS: MAMMOGRAPHY: The breast tissue is composed of scattered areas of fibroglandular density. There is no stellate mass, architectural distortion or suspicious microcalcifications in either breast to suggest malignancy. 1.5 cm smoothly marginated ovoid mass in the anterior third of the left lower inner quadrant. No skin thickening or axillary adenopathy. ULTRASOUND: Sonographic images of both breasts including the retroareolar regions, all 4 quadrants and the axilla demonstrates a well-circumscribed uniformly hypoechoic ovoid solid mass in the left 7 o'clock axis 2 cm from the nipple corresponding to the mass on mammography as well as on CT scan. It measures 1.3 x 0.8 x 1.3 cm in dimension and is probably benign in etiology, reflecting a focal fibroadenoma. No other solid or cystic masses are noted bilaterally. No architectural distortion or acoustical shadowing. No skin thickening or axillary adenopathy. IMPRESSION: Solid mass in the left lower inner quadrant is likely benign in etiology, reflecting a benign fibroadenoma. A six-month follow-up diagnostic left mammogram and targeted left breast ultrasound are recommended to ensure stability over time ASSESSMENT: BI-RADS Category 3: Probably benign
== END ==
PROVIDERS: PCP Nurse Practitioner Family; Visit Provider Nurse Practitioner Family
DX: Z12.31 Encounter for screening mammogram for malignant neoplasm of breast (principal); N63.20 Unspecified lump in the left breast, unspecified quadrant; Z80.3 Family history of malignant neoplasm of breast
CPT/HCPCS: 76641; 77062; 77066; G0279

== ENCOUNTER 2023-07-25 12:54 | Emergency (ER) | payer BC, SELFPAY ==
[2023-07-25] VITALS (11 sets, daily range): BP systolic 103–138; BP diastolic 66–86; PULSE 88–101; RESP 17–29; TEMP 36.7; O2SAT 95–99; BMI 41.6
--- NOTE | 2023-07-25 13:10 | ECG_ITS ---
APPROVED REPORT Exam: Resting ECG HR:93 bpm ECG Measurements Heart Rate 93 AXES MO 185 P 55 QRSd 109 QRS 47 QT 351 T 59 QTc 402 Conclusion SINUS RHYTHM NORMAL ECG UNCONFIRMED REPORT Electronically signed by : Eiljah Bartholomew MD 07/27/2023 21:31:49
--- NOTE | 2023-07-25 13:42 | CT_ITS ---
FINAL REPORT CLINICAL HISTORY: cp, sob, high risk COMPARISON: 04/19/2023 FINDINGS: Thin section axial CT images of the chest were obtained with contrast. 3D reformatted images were also obtained. This study was performed with techniques to keep radiation doses as low as reasonably achievable (ALARA). Individualized dose reduction techniques using automated exposure control or adjustment of mA and/or kV according to the patient's size were employed. There is an enlarged right thyroid lobe which is heterogeneous, favor goiter. Finding is stable since prior. There is no evidence of pulmonary embolism. There is no evidence of thoracic aortic aneurysm or dissection. There is no evidence of mediastinal or hilar mass or adenopathy. There is no evidence of pulmonary mass or nodule. No localized inflammatory process is seen within the lungs. There is mild scarring at the bases. Limited images of the upper abdomen demonstrate a right adrenal nodule which is stable, favor an adenoma. IMPRESSION: No evidence of pulmonary embolism. No mass or localized inflammatory process. Reviewed, Interpreted and Dictated by Robert Ernandez III, MD Transcribed by Nicci Luna Authenticated and [facility]
[2023-07-25 13:51] LABS: Chloride 106 mmol/L (98-107); Sodium 139 mmol/L (136-145)
[2023-07-25 13:52] LABS: Potassium 4.4 mmoL/L (3.5-5.1)
[2023-07-25 13:54] LABS: Alanine Aminotransferase 33 U/L (12-78); Albumin Level 4.3 g/dl (3.5-5.0); Albumin/Globulin Ratio 1.3 (1.1-1.8); Alkaline Phosphatase 104 U/L (38-126); Anion Gap 10.4 mEq/L (5-15); Aspartate Amino Transferase 27 U/L (14-36); Bilirubin,Total 0.6 mg/dl (0.2-1.3); Blood Urea Nitrogen 12 mg/dl (7-17); Calcium 9.1 mg/dl (8.4-10.2); Carbon Dioxide 27 mmol/L (22.0-30.0); Creatinine Clearance Estimated 98 mL/min (50-200); Estimated Glomerular Filt Rate 90 ml/min (>60); GFR (African American) 109 ML/MIN (>60); Globulin 3.2 g/dL (1.3-3.2); Glucose 254 mg/dl (74-100); Total Protein,Serum 7.5 g/dl (6.3-8.2)
[2023-07-25 14:01] LABS: Basophils # 0.1 K/mm3 (0-0.2); Basophils % 0.9 % (0.1-2.0); Eosinophils # 0.2 K/mm3 (0.0-0.4); Eosinophils % 1.5 % (0.1-12.0); Hematocrit 46.9 % (37.0-47.0); Hemoglobin 16.1 g/dL (12.2-16.2); Lymphocytes # 4.3 K/mm3 (0.7-4.5); Lymphocytes % 38.3 % (10-50); Mean Corpuscular HGB Conc 34.4 g/dL (31.8-35.4); Mean Corpuscular Hemoglobin 30.7 pg (27.0-31.2); Mean Corpuscular Volume 89.1 fl (81-99); Mean Platelet Volume 8.6 fl (7.4-10.4); Monocytes # 0.6 K/mm3 (0.1-1.0); Monocytes % 5.5 % (1.7-9.3); Neutrophils # 6.1 K/mm3 (1.8-7.8); Neutrophils % 53.8 % (37.0-80.0); Platelet Count 327 K/mm3 (142-424); Red Blood Count 5.26 M/mm3 (4.20-5.40); Red Cell Distribution Width 13.2 % (11.5-17.5); White Blood Count 11.3 K/mm3 (4.8-10.8)
--- NOTE | 2023-07-25 14:04 | HMH.EDGENADL ---
Discharge Plan Disposition Patient Disposition: Home, Self-Care Prescriptions Prescriptions: New prednisone 20 mg tablet 40 mg PO BID 5 Days Qty: 20 0RF amoxicillin-pot clavulanate 875-125 mg tablet 1 tab PO BID 5 Days Qty: 10 0RF No Action lisinopril 5 mg tablet 5 mg PO DAILY metformin 500 mg tablet 500 mg PO BID alprazolam [Xanax] 0.25 mg tablet 0.25 mg PO BID PRN (Reason: anxiety) Qty: 14 0RF Trulicity 0.75 mg/0.5 mL pen injector See Rx Instructions .ROUTE .COMPLEX Qty: 4 2RF Dose Instruction: INJECT 1 SYRINGE SUBCUTANEOUSLY ONCE A WEEK FOR 28 DAYS Rx Instructions: INJECT 1 SYRINGE SUBCUTANEOUSLY ONCE A WEEK FOR 28 DAYS (DME) Dexcom G6 Sensor Device See Rx Instructions MISCELLANE .MEDSUPPLY Qty: 3 4RF Rx Instructions: As directed (DME) Dexcom G6 Transmitter Device See Rx Instructions .MEDSUPPLY Qty: 1 4RF Rx Instructions: As directed albuterol sulfate [Proventil HFA] 90 mcg/actuation HFA aerosol inhaler 2 puff INHALATION Q6H Qty: 6.7 0RF Rx Instructions: administer with spacer simvastatin 20 mg tablet 20 mg PO gabapentin 300 mg capsule 300 mg PO HS bupropion HCl 150 mg tablet sustained-release 12 hr 150 mg PO BID Jardiance 10 mg tablet 10 mg PO DAILY Trelegy Ellipta 100-62.5-25 mcg blister with device 1 inh inhalation DAILY fluticasone propionate 50 mcg/actuation spray,suspension 1 spray intranasal DAILY Rx Instructions: administer into each nostril albuterol sulfate 0.63 mg/3 mL solution for nebulization 0.63 mg inhalation Q4-6H PRN esomeprazole magnesium [Nexium] 40 mg capsule,delayed release(DR/EC) 40 mg PO DAILY Qty: 30 2RF fluticasone propionate [Flonase Allergy Relief] 50 mcg/actuation spray,suspension 2 spray intranasal DAILY 90 Days Qty: 16 2RF Rx Instructions: administer into each nostril azelastine [Astepro Allergy] 205.5 mcg (0.15 %) spray,non-aerosol 2 spray intranasal HS 90 Days Qty: 30 3RF Rx Instructions: administer into each nostril Januvia 50 mg tablet 50 mg PO DAILY Qty: 90 0RF Xarelto 20 mg tablet 20 mg PO DAILY Qty: 30 3RF Rx Instructions: must administer with evening meal clopidogrel 75 mg tablet 75 mg PO DAILY Qty: 30 11RF metoprolol succinate 50 mg tablet extended release 24 hr 50 mg PO DAILY Qty: 90 1RF Referrals Follow up/Referrals: Milady Grullon APRN [Primary Care Provider] - See instructions Activity Restrictions/Add. Instructions Additional Instructions/Restrictions: Call your family doctor to establish care for this visit to the emergency department and schedule follow-up within 48 hours to ensure improvement. If you have any worsening of your condition or any other concerning signs or symptoms, return to the emergency department or your primary care doctor for further evaluation. Augmentin and prednisone given, take these as prescribed for 5 days. Take Tylenol 1000 mg every 6 hours (4 times daily) and ibuprofen 400 mg every 6 hours (4 times daily) as needed with food and water to prevent GI upset and kidney damage. Clinical Impressions Clinical Impression: COPD exacerbation Discharge ED Provider: Jeremiah Jansen General Adult HPI <Lincoln Banks MD - Last Filed: 07/25/23 18:01> General Chief complaint: Shortness of Breath/Dyspnea Stated complaint: SOA Time Seen by Provider: 07/25/23 13:03 Mode of Arrival: Ambulatory Source of Information: Patient Limitations: No Limitations Description of Symptoms (Recalled from ER Triage Doc. by RN): Patient reports beng seen by Milady Grullon today related to beeing short of air for 1 week. States she has a history of blood clots and COPD so her PCP wanted her to come to the er for evaluation. History of Present Illness HPI narrative: 62-year-old female, history of COPD, prior arterial thrombosis, presents with 1 week of worsening sh
[2023-07-25 14:07] LABS: Troponin I < 0.01 ng/ml (0.00-0.034)
[2023-07-25 16:50] LABS: NT Pro Brain Natriuretic Pep. < 20.0 pg/mL (0-125)
[2023-07-25 17:26] LABS: Troponin I < 0.01 ng/ml (0.00-0.034)
== END 2023-07-25 18:16 | disposition home or self-care (01) ==
PROVIDERS: Emergency Medicine; Emergency Provider Emergency Medicine; PCP Nurse Practitioner Family
DX: J44.1 Chronic obstructive pulmonary disease with (acute) exacerbation (principal); F17.210 Nicotine dependence, cigarettes, uncomplicated; E11.9 Type 2 diabetes mellitus without complications; K21.9 Gastro-esophageal reflux disease without esophagitis; E78.5 Hyperlipidemia, unspecified; Z79.84 Long term (current) use of oral hypoglycemic drugs
CPT/HCPCS: 36415; 71275; 80053; 83880; 84484; 85025; 93005; 99284; Q9967

== ENCOUNTER → 2023-08-10 07:20 | Outpatient (CLI) | payer BC, SELFPAY ==
--- NOTE | 2023-08-10 07:27 | XR_ITS ---
FINAL REPORT CLINICAL HISTORY: Foot pain COMPARISON: None FINDINGS: AP, oblique and lateral views of the right foot were obtained. There is no prior exam for comparison. There is no acute fracture or dislocation. The joint spaces are preserved. There is a small calcification adjacent to the base of the proximal phalanx of the great toe, likely chronic. Soft tissues are normal. IMPRESSION: No acute osseous abnormality of the right foot. Reviewed, Interpreted and Dictated by Kari Peng MD Transcribed by Ania Erickson Authenticated and [facility]
--- NOTE | 2023-08-10 07:27 | XR_ITS ---
FINAL REPORT CLINICAL HISTORY: Foot pain COMPARISON: None FINDINGS: AP, oblique and lateral views of the left foot were obtained. There is no prior exam for comparison. There is no acute fracture or dislocation. Multi joint degenerative changes is present, most pronounced in the midfoot. Soft tissues are normal. IMPRESSION: No acute osseous abnormality of the left foot. Multijoint degenerative changes present, most pronounced in the midfoot. Reviewed, Interpreted and Dictated by Kari Peng MD Transcribed by Ania Erickson Authenticated and . [facility]
== END ==
PROVIDERS: PCP Nurse Practitioner Family; Visit Provider Nurse Practitioner Family
DX: M79.671 Pain in right foot (principal); M79.672 Pain in left foot
CPT/HCPCS: 73630

== ENCOUNTER → 2023-09-07 12:49 | Outpatient (CLI) | payer BC, SELFPAY ==
[2023-09-07 13:40] VITALS: PULSE 93; PULSE 95
== END ==
PROVIDERS: PCP Nurse Practitioner Family; Visit Provider Internal Medicine Pulmonary Disease
DX: R06.09 Other forms of dyspnea (principal)
CPT/HCPCS: 94060; 94618; 94640; 94726; 94729

== ENCOUNTER 2023-11-06 13:10 | Outpatient (CLI) | payer BC, SELFPAY ==
--- NOTE | 2023-11-06 13:14 | CT_ITS ---
FINAL REPORT CLINICAL HISTORY: CONFUSION,DISORIENTATION. Blurry vision. Hx of migraines, headaches in back and top of head, and diabetes. COMPARISON: None FINDINGS: Axial images of the head were obtained without contrast. Coronal and sagittal reformatted images were also obtained.This study was performed with techniques to keep radiation doses as low as reasonably achievable (ALARA). Individualized dose reduction techniques using automated exposure control or adjustment of mA and/or kV according to the patient's size were employed. There is no evidence of intracranial hemorrhage or mass. The ventricular size is within normal limits. There is no evidence of shift of the midline structures. No abnormal extra axial fluid collection is identified. No skull abnormality is seen on the bone window images. Mucosal thickening in multiple paranasal sinuses with air-fluid levels in the maxillary sinuses bilaterally and the sphenoid sinus. These findings are compatible with acute sinusitis. IMPRESSION: No acute intracranial abnormality. Acute sinusitis. Reviewed, Interpreted and Dictated by Robert Ernandez III, MD Transcribed by Ania Erickson Authenticated and [facility]
== END 2023-11-06 23:59 ==
LOC: RAD 13:11
PROVIDERS: PCP Nurse Practitioner Family; Visit Provider Nurse Practitioner Family
DX: R41.0 Disorientation, unspecified (principal)
CPT/HCPCS: 70450

== ENCOUNTER 2023-12-06 13:45 | Outpatient (CLI) | payer BC, SELFPAY ==
--- NOTE | 2023-12-06 14:01 | MM_ITS ---
PROCEDURE INFORMATION: Exam: US Left Breast, Complete MG Left Diagnostic Breast Tomosynthesis Exam date and time: 12/07/2023 12:16 PM Age: 48 years old Clinical indication: Short-term radiographic followup; Left breast; mass TECHNIQUE: Imaging protocol: Complete ultrasound of all four quadrants of the left breast and the retroareolar regions, including ultrasound of the axilla when performed. Left Diagnostic tomosynthesis and 2D mammography including computer-aided detection (CAD) when performed. Unilateral or bilateral exam. COMPARISON: 1. US BREAST LT COMPLETE 05/09/2023 3:13 PM 2. Mammogram dated 05/09/2023 FINDINGS: MAMMOGRAPHY: Digital diagnostic spot compression views of the left lower outer quadrant demonstrate a stable ovoid hypoechoic mass measuring 1.5 cm in greatest dimension. ULTRASOUND: Sonographic images of the left breast including the retroareolar region, all 4 quadrants and the axilla demonstrates a stable uniformly hypoechoic well-circumscribed ovoid solid mass owing for differences in measurement technique and currently seen is measuring 1.6 x 0.7 x 1.3 cm. Incidental 0.8 cm cyst in the 7 o'clock periareolar region.. No architectural distortion or acoustical shadowing. No skin thickening or axillary adenopathy. IMPRESSION: Stable probably benign solid mass in the left lower inner quadrant compared to prior mammogram and ultrasound dated 05/09/2023. A six-month follow-up diagnostic bilateral mammogram and targeted left breast ultrasound are recommended for continued close surveillance of the left-sided mass as well as part of an annual screening schedule ASSESSMENT: BI-RADS Category 3: Probably benign.
== END 2023-12-06 23:59 ==
LOC: RAD 13:45
PROVIDERS: PCP Nurse Practitioner Family; Visit Provider Nurse Practitioner Family
DX: N63.20 Unspecified lump in the left breast, unspecified quadrant (principal)
CPT/HCPCS: 77061; 77065; G0279

== ENCOUNTER 2023-12-07 11:36 | Outpatient (CLI) | payer BC, SELFPAY | END 2023-12-07 23:59 | LOC: RAD 11:37 | PROVIDERS: PCP Nurse Practitioner Family; Visit Provider Nurse Practitioner Family | DX: N63.24 Unspecified lump in the left breast, lower inner quadrant (principal) | CPT/HCPCS: 76641 ==

== ENCOUNTER 2024-03-26 11:15 | Outpatient (POV) | payer BC, SELFPAY | END 2024-03-26 23:59 | disposition home or self-care (01) | LOC: SC 11:15 | PROVIDERS: Visit Provider Specialist/Technologist | DX: Z00.00 Encounter for general adult medical examination without abnormal findings (principal) ==

== ENCOUNTER 2024-06-17 13:52 | Outpatient (CLI) | payer BC, SELFPAY ==
--- NOTE | 2024-06-17 | MM_ITS ---
PROCEDURE INFORMATION: Exam: US Left Breast, Complete MG Bilateral Diagnostic Breast Tomosynthesis Exam date and time: 06/17/2024 2:36 PM Age: 49 years old Clinical indication: Six-month follow-up for probably benign mass in the left breast since 05/09/2023. TECHNIQUE: Imaging protocol: Complete ultrasound of all four quadrants of the left breast and the retroareolar regions, including ultrasound of the axilla when performed. Bilateral Diagnostic tomosynthesis and 2D mammography including computer-aided detection (CAD) when performed. Unilateral or bilateral exam. COMPARISON: US BREAST LT COMPLETE 12/07/2023 12:16 PM MG MM DIG MAMM DX UNILAT LT CAD 12/06/2023 1:58 PM US BREAST LT COMPLETE 05/09/2023 3:13 PM MG MM DIG MAMM BI DX W/CAD 05/09/2023 2:30 PM FINDINGS: MAMMOGRAPHY: Breast mammogram findings: Breast composition: There are scattered areas of fibroglandular density. Mass: Stable 1.5 cm oval mass in the left lower inner quadrant middle 3rd compared to 05/09/2023 Architectural distortion: None. Calcifications: No suspicious calcifications. Asymmetric density: None. Skin thickening: None. Axillary adenopathy: None. ULTRASOUND: Breast ultrasound findings: Targeted sonography on the left at 7 o'clock 2 cm from the nipple which demonstrates oval solid avascular mass measuring 1.5 x 1.5 x 0.6 cm which measured 1.3 x 0.8 x 1.3 cm on 05/09/2023 and 1.6 x 0.7 x 1.3 cm on 12/07/2023. At 7 o'clock 1 cm from the nipple, 0.4 cm simple cyst smaller than 12/07/2023 when it measured 0.8 cm. IMPRESSION: No significant change in probably benign left breast mass on mammography and on sonography at 7 o'clock since 05/09/2023, continued six-month follow-up left sonography recommended unless otherwise clinically indicated. Annual screening mammogram recommended unless otherwise clinically indicated. ASSESSMENT: BI-RADS Category 3: Probably benign.
== END 2024-06-17 23:59 | disposition home or self-care (01) ==
LOC: RAD 13:53
PROVIDERS: PCP Nurse Practitioner Family; Visit Provider Nurse Practitioner Family
DX: R92.8 Other abnormal and inconclusive findings on diagnostic imaging of breast (principal); N63.24 Unspecified lump in the left breast, lower inner quadrant
CPT/HCPCS: 76641; 77062; 77066; G0279

== ENCOUNTER 2024-07-02 23:32 | Emergency (ER) | payer BC, SELFPAY ==
[2024-07-02 23:33] VITALS: BP 179/110; PULSE 144; RESP 20; TEMP 36.7; O2SAT 99; BMI 41.5
--- NOTE | 2024-07-02 23:40 | CT_ITS ---
PROCEDURE INFORMATION: Exam: CTA Abdomen and Pelvis With Contrast Exam date and time: 07/03/2024 12:06 AM Age: 49 years old Clinical indication: Abdominal pain; Acute; Additional info: Severe chest/abd pain, HX mesenteric ischemia TECHNIQUE: Imaging protocol: Computed tomographic angiography of the abdomen and pelvis with contrast. Exam focused on the arteries. 3D rendering (Not supervised by radiologist): MIP and/or 3D reconstructed images were created by the technologist. Radiation optimization: All CT scans at this facility use at least one of these dose optimization techniques: automated exposure control; mA and/or kV adjustment per patient size (includes targeted exams where dose is matched to clinical indication); or iterative reconstruction. Contrast material: ISOVUE; Contrast volume: 100 ml; Contrast route: INTRAVENOUS (IV); COMPARISON: CT ANGIO ABDOMEN PELVIS 04/19/2023 9:38 PM FINDINGS: Lungs: Small calcified granuloma right lower lobe Pleural spaces: No pleural effusion or pneumothorax. Pulmonary arteries: No large central acute pulmonary embolus. Aorta: Normal caliber thoracic aorta without evidence of dissection. Celiac trunk and mesenteric arteries: No occlusion or significant stenosis. Renal arteries: No occlusion or significant stenosis. Right iliac arteries: No occlusion or significant stenosis. Left iliac arteries: No occlusion or significant stenosis. Other arteries: Variant branching anatomy with direct origin left vertebral artery from the arch. Liver: No mass. Gallbladder and biliary ducts: Unremarkable. No calcified stones. No ductal dilation. Pancreas: Unremarkable. No mass. No ductal dilation. Spleen: Unremarkable. No splenomegaly. Adrenal glands: Unremarkable. No mass. Kidneys and ureters: Unremarkable. No solid mass. No hydronephrosis. Stomach and bowel: Unremarkable. No obstruction. No mucosal thickening. Appendix: No evidence of appendicitis. Intraperitoneal space: Unremarkable. No free air. No significant fluid collection. Lymph nodes: Calcified right hilar lymph nodes Urinary bladder: Unremarkable. No mass. Reproductive: Unremarkable as visualized. Bones/joints: No acute fracture. Soft tissues: Unremarkable. IMPRESSION: 1. No CT evidence of aortic dissection or large central acute pulmonary embolus. 2. Incidental findings above
--- NOTE | 2024-07-02 23:40 | CT_ITS ---
PROCEDURE INFORMATION: Exam: CTA Chest With Contrast Exam date and time: 07/03/2024 12:06 AM Age: 49 years old Clinical indication: Pain; Chest pressure; Additional info: Severe chest/abd pain, HX mesenteric ischemia TECHNIQUE: Imaging protocol: Computed tomographic angiography of the chest with contrast. Exam focused on the arteries. 3D rendering (Not supervised by radiologist): MIP and/or 3D reconstructed images were created by the technologist. Radiation optimization: All CT scans at this facility use at least one of these dose optimization techniques: automated exposure control; mA and/or kV adjustment per patient size (includes targeted exams where dose is matched to clinical indication); or iterative reconstruction. Contrast material: ISOVUE; Contrast volume: 100 ml; Contrast route: INTRAVENOUS (IV); COMPARISON: CT ANGIO CHEST PE PROTOCOL 07/25/2023 2:18 PM FINDINGS: Pulmonary arteries: No CT evidence of aortic dissection or central acute pulmonary embolus. Aorta: A typical branching pattern of the thoracic aorta. Left vertebral artery origin directly from arch. Normal anatomic variant. Lungs: No acute airspace disease. Pleural spaces: No pleural effusions. Heart: Unremarkable. No cardiomegaly. No pericardial effusion. Lymph nodes: Calcified right hilar lymph nodes Bones/joints: Unremarkable. No acute fracture. Soft tissues: Unremarkable. IMPRESSION: 1. No CT evidence of aortic dissection or acute pulmonary embolus. 2. No visible acute intrathoracic abnormality.
--- NOTE | 2024-07-02 23:40 | ED_ITS ---
Discharge Plan Disposition Patient Disposition: Home, Self-Care Condition: Good Prescriptions Prescriptions: No Action lisinopril 5 mg tablet 5 mg PO DAILY alprazolam [Xanax] 0.25 mg tablet 0.25 mg PO BID PRN (Reason: anxiety) Qty: 14 0RF albuterol sulfate [Proventil HFA] 90 mcg/actuation HFA aerosol inhaler 2 puff INHALATION Q6H Qty: 6.7 0RF Rx Instructions: administer with spacer atorvastatin 40 mg tablet 40 mg PO DAILY Patient Comments: TAKE ONE (1) TABLET EVERY DAY BY ORAL ROUTE. gabapentin 400 mg capsule 400 mg PO TID Patient Comments: TAKE ONE (1) CAPSULE BY MOUTH THREE (3) TIMES DAILY metformin 1,000 mg tablet 1,000 mg PO BID Patient Comments: TAKE ONE (1) TABLET TWICE A DAY BY ORAL ROUTE. Xarelto 2.5 mg tablet 2.5 mg PO DAILY Patient Comments: TAKE ONE (1) TABLET TWICE A DAY BY ORAL ROUTE. pantoprazole 40 mg tablet,delayed release (DR/EC) PO Patient Comments: TAKE ONE (1) TABLET EVERY DAY BY ORAL ROUTE FOR 30 DAYS. loratadine 10 mg tablet 10 mg PO DAILY Patient Comments: TAKE ONE (1) TABLET EVERY DAY BY ORAL ROUTE FOR 30 DAYS. levocetirizine [Xyzal] 5 mg tablet 5 mg PO DAILY Qty: 30 2RF bupropion HCl 150 mg tablet sustained-release 12 hr 150 mg PO BID Jardiance 10 mg tablet 10 mg PO DAILY albuterol sulfate 0.63 mg/3 mL solution for nebulization 0.63 mg inhalation Q4-6H PRN Trelegy Ellipta 200-62.5-25 mcg blister with device 1 inh inhalation Patient Comments: INHALE ONE (1) PUFF ONCE A DAY USE ACCORDING TO ASTHMA ACTION PLAN. RINSE MOUTH OUT AFTER EACH USE. azelastine 137 mcg (0.1 %) spray,non-aerosol 2 spray intranasal BID Qty: 30 2RF Rx Instructions: administer into each nostril metoprolol succinate 50 mg tablet extended release 24 hr 50 mg PO DAILY Qty: 90 1RF Referrals Follow up/Referrals: Milady Grullon APRN [Primary Care Provider] - See instructions Activity Restrictions/Add. Instructions Additional Instructions/Restrictions: Please follow-up with your primary care provider. Please return to the emergency department if you develop any new or worsening symptoms or become concerned for your health. Clinical Impressions Clinical Impression: Abdominal pain, Nausea Instructions Patient Instructions: DI for Acute Abdominal Pain Print Language Print Language: Libyan Discharge ED Provider: [facility] HPI General Chief complaint: Abdominal Pain Stated complaint: abd, chest pain, history of blood clots, high bp Time Seen by Provider: 07/02/24 23:35 History of Present Illness HPI narrative: 49-year-old female with history of SMA thrombosis, COPD, diabetes, presents for severe epigastric pain. She reports she has chronic pain in this area for years but over the last several days it has been much worse. She reports it is currently severe, radiating to her back. She came in now because she just cannot take it . She reports that she has been evaluated for this pain in the past including EGDs, barium swallows etc. 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 Related Data Home Medications ?Medication ?Instructions ?Recorded ?Confirmed lisinopril 5 mg tablet 5 mg PO DAILY 02/04/21 06/17/24 albuterol sulfate 0.63 mg/3 mL 0.63 mg inhalation Q4-6H PRN 07/12/23 06/17/24 solution for nebulization bupropion HCl 150 mg tablet,12 hr 150 mg PO BID 07/12/23 06/17/24 sustained-release empagliflozin 10 mg tablet 10 mg PO DAILY 07/12/23 06/17/24 (Jardiance) atorvastatin 40 mg tablet 40 mg PO DAILY 02/27/24 06/17/24 gabapentin 400 mg capsule 400 mg PO TID 02/27/24 06/17/24 metformin 1,000 mg tablet 1,000 mg PO BID 02/27/24 06/17/24 rivaroxaban 2.5 mg tablet (Xarelto) 2.5 mg PO DAILY 02/27/24 06/17/24 loratadine 10 mg tablet 10 mg PO DAILY 04/09/24 06/17/24 pantoprazole 40 mg tablet,delayed mg PO 04/09/24 06/17/24 release fluticasone fur. 200 mcg-umeclid 1 inh inhalation 06/17/24 06/17/24 62.5 mcg-vilant 25 mcg inhalat.powder (Trelegy Ellipta) Previous Rx's ?Medication ?Instructions ?Recorded alprazolam 0.25 mg tablet (Xanax) 0.25 mg PO BID PRN anxiety #14 tabs 02/16/21 albuterol sulfate 90 mcg/actuation 2 puff inhalation Q6H #6.7 grams 04/08/21 aerosol inhaler (Proventil HFA) metoprolol succinate 50 mg 50 mg PO DAILY #90 tabs 03/29/23 tablet,extended release 24 hr levocetirizine 5 mg tablet (Xyzal) 5 mg PO DAILY #30 tabs 04/09/24 azelastine 137 mcg (0.1 %) nasal 2 spray intranasal BID #30 mL 06/17/24 spray Allergies Allergy/AdvReac Type Severity Reaction Status Date / Time No Known Allergies Allergy Verified 06/17/24 11:30 [facility] Disclaimer: The information contained in this section may have been updated after the patient was seen, as this information can be updated by other users. Medical History Disorder of both eustachian tubes Bilateral chronic serous otitis media Chronic sinusitis GERD (gastroesophageal reflux disease) Smoking greater than 30 pack years Dyspnea on exertion Granulomatous lung disease Allergic rhinitis Chronic cough Pulmonary emphysema Abnormal ankle brachial index (ANTOINE) Neuropathy Hyperlipidemia Diabetes Surgical History History of adenoidectomy History of section History of tonsillectomy History of cholecystectomy Family History Other Cancer Diabetes Heart attack Hypertension Stroke Social History Smoking Status: Current every day smoker tobacco type: cigarettes packs per day: 1 second hand exposure: No alcohol intake: never substance use type: denies use current occupational status: other Travel in the last 8 weeks: None household members: spouse housing: house number of children: 1 current occupation: [employer] caffeine: Yes Other Medical History Have you received the Flu Vaccine for this season: No Have you received the Pneumonia Vaccine: Yes ROS Obtained: Yes All systems reviewed & no additional complaints except as documented Physical Exam General General appearance: alert Comment: Uncomfortable appearing Head Head exam: atraumatic and normocephalic Eye Eye exam: Present normal appearance, PERRL and EOMI ENT ENT exam: Present normal oropharynx and normal external ear exam Neck Neck exam: Present normal inspection and full ROM Chest Chest inspection: Present normal inspection and symmetric chest wall rise; Absent tenderness Respiratory Respiratory exam: Present normal lung sounds bilaterally; Absent respiratory distress Cardiovascular Cardiovascular exam: Present regular rate and normal rhythm Abdominal Exam Abdominal exam: Present soft and tenderness (Moderate generalized abdominal tenderness, worse in the epigastrium); Absent distention or guarding Extremities Exam Extremities exam: Present normal inspection; Absent edema or joint swelling Back Exam Back exam: Present normal inspection; Absent tenderness Neurological Exam Neurological exam: Present alert and oriented X3; Absent motor sensory deficit Psychiatric Psychiatric exam: Present normal affect and normal mood Skin Skin exam: Present warm, dry and normal color Lymphatic Lymphatic Findings: no adenopathy Medical Decision Making Medical Records Medical records reviewed: Yes I reviewed the patient's medical records. Screening: Per USPSTF and CDC recommendations, given the prevalence of disease in our region, it is our hospital?s policy to screen for HIV and viral Hepatitis for all patients aged 18 and over and those with ongoing risk factors. Mikey Inquiry Pt receiving controlled substance: No Mikey was queried for this patient: No Vital Signs: 07/02/24 23:33 07/03/24 00:31 07/03/24 01:00 Temperature 98.1 F Temperature Source Oral Pulse Rate 105 H 113 H Pulse Rate [Right Radial] 144 H Respiratory Rate 20 Blood Pressure 140/95 H 149/95 H Blood Pressure [Right Arm] 179/110 H Blood Pressure Mean [Right Arm] 133 Blood Pressure Source [Right Arm] Automatic Cuff Blood Pressure Position [Right Arm] Supine 02 Sat by Pulse Oximetry 99 95 97 Oxygen Delivery Method Room Air 07/03/24 01:30 07/03/24 02:00 07/03/24 03:31 Temperature 98.1 F Temperature Source Oral Pulse Rate 114 H 104 H 99 H Pulse Rate [Right Radial] Respiratory Rate 16 Blood Pressure 126/83 142/97 H 137/94 H Blood Pressure [Right Arm] Blood Pressure Mean [Right Arm] Blood Pressure Source [Right Arm] Blood Pressure Position [Right Arm] 02 Sat by Pulse Oximetry 95 97 Oxygen Delivery Method Room Air Lab Data Lab results reviewed: Yes I reviewed the patient's lab results. Lab Results 07/02/24 23:42: WBC 13.2 H, RBC 5.60 H, Hgb 16.4 H, Hct 50.7 H, MCV 90.5, MCH 29.3, MCHC 32.4, RDW 14.0, Plt Count 400, MPV 8.3, Neut % (Auto) 54.6, Lymph % (Auto) 34.9, [place] % (Auto) 5.5, Eos % (Auto) 3.6, Baso % (Auto) 1.4, Neut # (Auto) 7.2, Lymph # (Auto) 4.6 H, [place] # (Auto) 0.7, Eos # (Auto) 0.5 H, Baso # (Auto) 0.2, Sodium 137, Potassium 3.7, Chloride 105, Carbon Dioxide 21 L, Anion Gap 14.7, BUN 12, Creatinine 0.80, Estimated Creat Clear 85, Estimated GFR 77, Est GFR ( Amer) 93, Glucose 304 H, Lactate 3.0 H, Calcium 9.8, Magnesium 1.7, Total Bilirubin 0.7, AST 23, ALT 34, Alkaline Phosphatase 96, Troponin I < 0.01, Total Protein 7.9, Albumin 4.6, Globulin 3.3 H, Albumin/Globulin Ratio 1.4, Lipase 215, HIV 1&2 Antibody Rapid Nonreactive 07/03/24 02:40: Lactate 2.1, Troponin I < 0.01 07/02/24 23:42 07/02/24 23:42 Orders (Tests/Meds): ED MEDICATIONS Discontinued Medications Generic Name Dose Route Start Last Admin Trade Name Freq PRN Reason Stop Dose Admin Acetaminophen 1,000 mg 07/03/24 01:38 07/03/24 01:48 Acetaminophen 500mg Tab PO 07/03/24 01:39 1,000 mg ONCE ONE Administration Lactated Ringer's 1,000 mls @ 999 mls/hr 07/02/24 23:45 07/02/24 23:52 Lactated Ringer's 1000 Ml Bag IV 07/03/24 00:45 999 mls/hr .Q1H1M TONY Administration Iopamidol 100 ml 07/03/24 00:16 07/03/24 00:17 Iopamidol-370 (76%);100ml Bottle IV 07/03/24 00:17 100 ml ONCE ONE Administration Ketorolac Tromethamine 15 mg 07/03/24 01:38 07/03/24 01:48 Ketorolac 30mg/Ml Vial IV 07/03/24 01:39 15 mg ONCE ONE Administration Lidocaine HCl 15 ml 07/03/24 01:38 07/03/24 01:48 Lidocaine 2% Viscous Jackie 15ml Udc PO 07/03/24 01:39 15 ml ONCE ONE Administration Morphine Sulfate 4 mg 07/02/24 23:40 07/02/24 23:52 Morphine 4mg/Ml Syringe IV 07/02/24 23:41 4 mg ONCE ONE Administration Ondansetron HCl 4 mg 07/02/24 23:40 07/02/24 23:52 Ondansetron 4mg/2ml Vial IV 07/02/24 23:41 4 mg ONCE ONE Administration Sodium Chloride 50 ml 07/03/24 00:16 07/03/24 00:17 0.9 % Sodium Chloride 50 Ml Vial IV 07/03/24 00:17 50 ml ONCE ONE Administration Sodium Chloride 10 ml 07/03/24 00:16 07/03/24 00:17 Sodium Chloride 0.9% 10ml Syr (Rad Only) IV 08/02/24 00:15 10 ml NEEDED PRN Administration Maintain IV Site ORDERS Category Date Time Status CT angio abdomen pelvis Stat Cat Scan 07/02/24 23:40 Completed CTA Chest [CT angio chest - dissection] Stat Cat Scan 07/02/24 23:40 Completed CBC w/Auto Diff [Complete Blood Count Auto Diff] Stat Lab 07/02/24 23:42 Completed CMP [Comprehensive Metabolic Panel] Stat Lab 07/02/24 23:42 Completed HIV (1&2) Antibody Rapid Stat Lab 07/02/24 23:42 Completed Hep C Ab with Reflex to RNA Stat Lab 07/02/24 23:42 Completed Lactic Acid Follow Up (RFLX 1) Stat Lab 07/03/24 04:06 Ordered Lactic Acid Stat Lab 07/02/24 23:42 Completed Lactic Acid Stat Lab 07/03/24 02:40 Completed Lipase Stat Lab 07/02/24 23:42 Completed Magnesium Stat Lab 07/02/24 23:42 Completed Troponin I Q3H Lab 07/02/24 23:42 Completed Troponin I Q3H Lab 07/03/24 02:40 Completed ECG Data Tracing #1: I reviewed this ECG and interpreted as documented below: Sinus tachycardia with ventricular rate of 135, no significant ST elevation, normal intervals. ECG initial impression date: 07/02/24 ECG initial impression time: 23:40 HEART Score History (anamnesis): Moderately suspicious ECG: Normal Age: 45-65 years Risk factors: Atherosclerosis history Troponin: </= normal limit HEART Score: 4 Medical Decision Narrative: 49-year-old female with history of prior SMA thrombosis on Xarelto, COPD, [id number] diabetes, obesity presents for severe epigastric abdominal pain radiating to her chest and back. She reports that she has chronic pain in this area but it has been much worse over the last few days.. History was obtained via interactive discussion with patient, chart review. On arrival, patient is afebrile, tachycardic to 130, hypertensive with blood pressure 180 systolic, in extremis secondary to abdominal pain, moving all extremities spontaneously. Full physical exam performed and significant for moderate epigastric abdominal tenderness Differential includes but is not limited to mesenteric ischemia, ACS, PE acute aortic syndrome, pancreatitis, obstruction. Patient was given 1 L IV fluids, 4 mg IV morphine, 4 mg IV Zofran for symptomatic management and correction of underlying abnormalities. Workup initiated including emergent CTA chest abdomen and pelvis, CBC CMP troponin EKG lactate lipase. On re-evaluation, patient [remains afebrile, HD stable.] She reports marked symptomatic improvement. Heart rate improved on manager monitoring. Laboratory workup independently interpreted by me and significant for negative initial troponin, mild leukocytosis, mildly elevated lactate at 3.1.. Imaging independently interpreted by me and significant for no evidence of aortic pathology, no PE, no evidence of mesenteric artery thrombosis or stenosis. See radiology read for full review of final results. Repeat troponin returns undetectably low. Repeat lactate returns within normal limits after fluid resuscitation. Patient does not have significant tenderness on exam and reports that her symptoms feel back to baseline. I am unclear as to what the underlying etiology of her symptoms were, but given her otherwise negative workup and symptomatic improvement, it does not appear to be consistent with acute mesenteric ischemia or other emergent pathology at this time. These findings were communicated with patient, she was discharged in stable condition with return precautions Procedures Risk/Benefits of Procedure(s) Were Explained: Yes Critical Care Critical Care Time Critical Care Time: No
--- NOTE | 2024-07-02 23:40 | ECG_ITS ---
APPROVED REPORT Exam: Resting ECG HR:135 bpm ECG Measurements Heart Rate 135 AXES WV 138 P 66 QRSd 101 QRS 82 QT 331 T 47 QTc 410 Conclusion SINUS TACHYCARDIA NONSPECIFIC T-WAVE ABNORMALITY ABNORMAL RHYTHM ECG UNCONFIRMED REPORT Electronically signed by : JV RUIZ, 07/03/2024 05:18:40
[2024-07-02] MEDS: ONDANSETRON 4MG/2ML VIAL 4 MG IV (23:52)
[2024-07-02] MEDS: LACTATED RINGERS 1000ML 1,000 ML 999 ML IV (23:52)
[2024-07-02] MEDS: MORPHINE 4MG/ML SYRINGE 4 MG IV (23:52)
[2024-07-03 00:12] LABS: Basophils # 0.2 K/mm3 (0-0.2); Basophils % 1.4 % (0.1-2.0); Eosinophils # 0.5 K/mm3 (0.0-0.4); Eosinophils % 3.6 % (0.1-12.0); Hematocrit 50.7 % (37.0-47.0); Hemoglobin 16.4 g/dL (12.2-16.2); Lymphocytes # 4.6 K/mm3 (0.7-4.5); Lymphocytes % 34.9 % (10-50); Mean Corpuscular HGB Conc 32.4 g/dL (31.8-35.4); Mean Corpuscular Hemoglobin 29.3 pg (27.0-31.2); Mean Corpuscular Volume 90.5 fl (81-99); Mean Platelet Volume 8.3 fl (7.4-10.4); Monocytes # 0.7 K/mm3 (0.1-1.0); Monocytes % 5.5 % (1.7-9.3); Neutrophils # 7.2 K/mm3 (1.8-7.8); Neutrophils % 54.6 % (37.0-80.0); Platelet Count 400 K/mm3 (142-424); White Blood Count 13.2 K/mm3 (4.8-10.8)
[2024-07-03] MEDS: IOPAMIDOL-370 (76%);100ML BOTTLE 100 ML IV (00:17)
[2024-07-03] MEDS: 0.9 % SODIUM CHLORIDE 50 ML VIAL IV (00:17)
[2024-07-03] MEDS: SODIUM CHLORIDE 0.9% 10ML SYR (RAD ONLY) 10 ML IV (00:17)
[2024-07-03 00:31] VITALS: BP 140/95; PULSE 105; O2SAT 95
[2024-07-03 00:35] LABS: Alanine Aminotransferase 34 U/L (12-78); Albumin Level 4.6 g/dl (3.5-5.0); Albumin/Globulin Ratio 1.4 (1.1-1.8); Alkaline Phosphatase 96 U/L (38-126); Anion Gap 14.7 mEq/L (5-15); Aspartate Amino Transferase 23 U/L (14-36); Bilirubin,Total 0.7 mg/dl (0.2-1.3); Blood Urea Nitrogen 12 mg/dl (7-17); Calcium 9.8 mg/dl (8.4-10.2); Carbon Dioxide 21 mmol/L (22.0-30.0); Chloride 105 mmol/L (98-107); Creatinine Clearance Estimated 85 mL/min (50-200); Estimated Glomerular Filt Rate 77 ml/min (>60); GFR (African American) 93 ML/MIN (>60); Globulin 3.3 g/dL (1.3-3.2); Glucose 304 mg/dl (74-100); Lipase 215 U/L (23-300); Magnesium 1.7 mg/dl (1.6-2.3); Potassium 3.7 mmoL/L (3.5-5.1); Sodium 137 mmol/L (136-145); Total Protein,Serum 7.9 g/dl (6.3-8.2)
[2024-07-03 00:51] LABS: Troponin I < 0.01 ng/ml (0.00-0.034)
[2024-07-03 01:00] VITALS: BP 149/95; PULSE 113; O2SAT 97
[2024-07-03 01:05] LABS: HIV (1&2) Antibody Rapid NONREACTIVE (NONREACTIVE)
[2024-07-03 01:30] VITALS: BP 126/83; PULSE 114; O2SAT 95
[2024-07-03] MEDS: KETOROLAC 30MG/ML VIAL 15 MG IV (01:48)
[2024-07-03] MEDS: ACETAMINOPHEN 500MG TAB 1000 MG PO (01:48)
[2024-07-03] MEDS: LIDOCAINE 2% VISCOUS SOL 15ML UDC 15 ML PO (01:48)
[2024-07-03 02:00] VITALS: BP 142/97; PULSE 104; O2SAT 97
[2024-07-03 03:14] LABS: Lactic Acid 2.1 mmol/L (0.7-2.1)
[2024-07-03 03:23] LABS: Troponin I < 0.01 ng/ml (0.00-0.034)
[2024-07-03 03:31] VITALS: BP 137/94; PULSE 99; RESP 16; TEMP 36.7; O2SAT 99
[2024-07-03 04:06] LABS: Reflex Lactic Add Lactic Reflex
[2024-07-04 05:22] LABS: HCV Ab Non Reactive (Non Reactive)
== END 2024-07-03 03:36 | disposition home or self-care (01) ==
PROVIDERS: Emergency Provider Emergency Medicine; PCP Nurse Practitioner Family
DX: R10.9 Unspecified abdominal pain (principal); R11.0 Nausea
CPT/HCPCS: 71275; 74174; 80053; 83605; 83690; 83735; 84484; 85025; 86803; 87389; 93005; 96361; 96374; 96375; 99285; J1885; J2270; J2405; J7120; Q9967

== ENCOUNTER 2024-07-11 17:30 | Emergency (ER) | payer BC, SELFPAY ==
[2024-07-11 17:31] VITALS: BP 146/101; PULSE 130; RESP 20; TEMP 36.8; O2SAT 99; BMI 41.8
--- NOTE | 2024-07-11 17:38 | HMH.EDGENADL ---
Discharge Plan Disposition Patient Disposition: Home, Self-Care Condition: Good Prescriptions Prescriptions: New metoclopramide HCl 10 mg tablet 10 mg PO Q6H PRN (Reason: nausea and vomiting) 14 Days Qty: 56 0RF No Action lisinopril 5 mg tablet 5 mg PO DAILY alprazolam [Xanax] 0.25 mg tablet 0.25 mg PO BID PRN (Reason: anxiety) Qty: 14 0RF albuterol sulfate [Proventil HFA] 90 mcg/actuation HFA aerosol inhaler 2 puff INHALATION Q6H Qty: 6.7 0RF Rx Instructions: administer with spacer atorvastatin 40 mg tablet 40 mg PO DAILY Patient Comments: TAKE ONE (1) TABLET EVERY DAY BY ORAL ROUTE. gabapentin 400 mg capsule 400 mg PO TID Patient Comments: TAKE ONE (1) CAPSULE BY MOUTH THREE (3) TIMES DAILY metformin 1,000 mg tablet 1,000 mg PO BID Patient Comments: TAKE ONE (1) TABLET TWICE A DAY BY ORAL ROUTE. Xarelto 2.5 mg tablet 2.5 mg PO DAILY Patient Comments: TAKE ONE (1) TABLET TWICE A DAY BY ORAL ROUTE. pantoprazole 40 mg tablet,delayed release (DR/EC) PO Patient Comments: TAKE ONE (1) TABLET EVERY DAY BY ORAL ROUTE FOR 30 DAYS. loratadine 10 mg tablet 10 mg PO DAILY Patient Comments: TAKE ONE (1) TABLET EVERY DAY BY ORAL ROUTE FOR 30 DAYS. levocetirizine [Xyzal] 5 mg tablet 5 mg PO DAILY Qty: 30 2RF bupropion HCl 150 mg tablet sustained-release 12 hr 150 mg PO BID Jardiance 10 mg tablet 10 mg PO DAILY albuterol sulfate 0.63 mg/3 mL solution for nebulization 0.63 mg inhalation Q4-6H PRN Trelegy Ellipta 200-62.5-25 mcg blister with device 1 inh inhalation Patient Comments: INHALE ONE (1) PUFF ONCE A DAY USE ACCORDING TO ASTHMA ACTION PLAN. RINSE MOUTH OUT AFTER EACH USE. azelastine 137 mcg (0.1 %) spray,non-aerosol 2 spray intranasal BID Qty: 30 2RF Rx Instructions: administer into each nostril metoprolol succinate 50 mg tablet extended release 24 hr 50 mg PO DAILY Qty: 90 1RF Referrals Follow up/Referrals: Milady Grullon APRN [Primary Care Provider] - See instructions Activity Restrictions/Add. Instructions Additional Instructions/Restrictions: You are being prescribed Reglan to help with nausea and abdominal pain. I encouraged you to follow-up with your surgery assistant on the as discussed. If you develop any new or worsening symptoms, or if you become concerned for your health for any reason, return to the emergency department for evaluation. Clinical Impressions Clinical Impression: Abdominal pain, Nausea Instructions Patient Instructions: DI for Acute Abdominal Pain Print Language Print Language: Macedonian Discharge ED Provider: [facility] HPI General Chief complaint: Abdominal Pain Stated complaint: abd pain Time Seen by Provider: 07/11/24 17:38 History of Present Illness HPI narrative: Cyndy Padron is a 49F with a history of diabetes mellitus on metformin, s/p cholecystectomy, hypertension, mesenteric artery stenosis , lower extremity stents on Xarelto, GERD, hyperlipidemia presenting to the emergency department for complaints of upper abdominal pain. Patient states that she has had intermittent extreme epigastric abdominal pain over the course of 1 year. She states that the pain recurred last night, however she states that it worsened today after doing some laundry. She notes that it seems to get worse with certain movements. She does note that occasionally it does get worse with eating. She was seen for these complaints on 07/02 and had a CTA of her abdomen that did not reveal any findings. She notes that she has been diagnosed with abdominal hernias and stenosis of her mesenteric artery before and is concerned that that might be the cause. She states that her CT scan at that time did not reveal any findings. She reports some nausea but denies any vomiting. She states that she has been having regular bowel movements that been soft without blood. She states that the pain sometimes radiates into her chest and causes some shortness of breath. Related Data Home Medications ?Medication ?Instructions ?Recorded ?Confirmed lisinopril 5 mg tablet 5 mg PO DAILY 02/04/21 06/17/24 albuterol sulfate 0.63 mg/3 mL 0.63 mg inhalation Q4-6H PRN 07/12/23 06/17/24 solution for nebulization bupropion HCl 150 mg tablet,12 hr 150 mg PO BID 07/12/23 06/17/24 sustained-release empagliflozin 10 mg tablet 10 mg PO DAILY 07/12/23 06/17/24 (Jardiance) atorvastatin 40 mg tablet 40 mg PO DAILY 02/27/24 06/17/24 gabapentin 400 mg capsule 400 mg PO TID 02/27/24 06/17/24 metformin 1,000 mg tablet 1,000 mg PO BID 02/27/24 06/17/24 rivaroxaban 2.5 mg tablet (Xarelto) 2.5 mg PO DAILY 02/27/24 06/17/24 loratadine 10 mg tablet 10 mg PO DAILY 04/09/24 06/17/24 pantoprazole 40 mg tablet,delayed mg PO 04/09/24 06/17/24 release fluticasone fur. 200 mcg-umeclid 1 inh inhalation 06/17/24 06/17/24 62.5 mcg-vilant 25 mcg inhalat.powder (Trelegy Ellipta) Previous Rx's ?Medication ?Instructions ?Recorded alprazolam 0.25 mg tablet (Xanax) 0.25 mg PO BID PRN anxiety #14 tabs 02/16/21 albuterol sulfate 90 mcg/actuation 2 puff inhalation Q6H #6.7 grams 04/08/21 aerosol inhaler (Proventil HFA) metoprolol succinate 50 mg 50 mg PO DAILY #90 tabs 03/29/23 tablet,extended release 24 hr levocetirizine 5 mg tablet (Xyzal) 5 mg PO DAILY #30 tabs 04/09/24 azelastine 137 mcg (0.1 %) nasal 2 spray intranasal BID #30 mL 06/17/24 spray metoclopramide HCl 10 mg tablet 10 mg PO Q6H PRN nausea and 07/11/24 vomiting 14 days #56 tabs Allergies Allergy/AdvReac Type Severity Reaction Status Date / Time No Known Allergies Allergy Verified 06/17/24 11:30 [facility] Disclaimer: The information contained in this section may have been updated after the patient was seen, as this information can be updated by other users. Medical History Disorder of both eustachian tubes Bilateral chronic serous otitis media Chronic sinusitis GERD (gastroesophageal reflux disease) Smoking greater than 30 pack years Dyspnea on exertion Granulomatous lung disease Allergic rhinitis Chronic cough Pulmonary emphysema Abnormal ankle brachial index (ANTOINE) Neuropathy Hyperlipidemia Diabetes Surgical History History of adenoidectomy History of section History of tonsillectomy History of cholecystectomy Family History Other Cancer Diabetes Heart attack Hypertension Stroke Social History Smoking Status: Current every day smoker tobacco type: cigarettes packs per day: 1 second hand exposure: No alcohol intake: never substance use type: denies use current occupational status: other Travel in the last 8 weeks: None household members: spouse housing: house number of children: 1 current occupation: [employer] caffeine: Yes Other Medical History Have you received the Flu Vaccine for this season: No Have you received the Pneumonia Vaccine: Yes ROS Obtained: Yes Systems reviewed as appropriate & no additional complaints except as documented Physical Exam General General appearance: alert and obese Comment: Appears uncomfortable Head Head exam: atraumatic Eye Eye exam: Present normal appearance ENT ENT exam: Present normal external ear exam Neck Neck exam: Present full ROM Chest Chest inspection: Present symmetric chest wall rise Respiratory Respiratory exam: Present normal lung sounds bilaterally; Absent respiratory distress Cardiovascular Cardiovascular exam: Present regular rate and tachycardia Abdominal Exam Abdominal exam: Present soft, tenderness and guarding (Voluntary) Abdominal tenderness: Present RUQ, LLQ and epigastrium Extremities Exam Extremities exam: Present normal inspection Back Exam Back exam: Present normal inspection Neurological Exam Neurological exam: Present alert and oriented X3 Psychiatric Psychiatric exam: Present normal affect Skin Skin exam: Present warm and dry Medical Decision Making Medical Records Medical records reviewed: Yes I reviewed the patient's medical records. Screening: Per USPSTF and CDC recommendations, given the prevalence of disease in our region, it is our hospital?s policy to screen for HIV and viral Hepatitis for all patients aged 18 and over and those with ongoing risk factors. Mikey Inquiry Pt receiving controlled substance: No Vital Signs: 07/11/24 17:31 07/11/24 18:00 07/11/24 18:30 Temperature 98.3 F Temperature Source Oral Pulse Rate 126 H 106 H Pulse Rate [Right Radial] 130 H Respiratory Rate 20 Blood Pressure 119/92 H 116/75 Blood Pressure [Right Arm] 146/101 H Blood Pressure Mean 88 Blood Pressure Mean [Right Arm] 116 02 Sat by Pulse Oximetry 99 95 95 Oxygen Delivery Method Room Air Room Air 07/11/24 19:00 Temperature Temperature Source Pulse Rate 108 H Pulse Rate [Right Radial] Respiratory Rate Blood Pressure 111/70 Blood Pressure [Right Arm] Blood Pressure Mean 80 Blood Pressure Mean [Right Arm] 02 Sat by Pulse Oximetry 95 Oxygen Delivery Method Room Air Lab Data Lab Results 07/11/24 18:00: WBC 13.0 H, RBC 5.62 H, Hgb 16.1, Hct 48.0 H, MCV 85.4, MCH 28.6, MCHC 33.4, RDW 13.8, Plt Count 338, MPV 8.1, Neut % (Auto) 59.7, Lymph % (Auto) 29.6, [place] % (Auto) 4.6, Eos % (Auto) 4.4, Baso % (Auto) 1.8, Neut # (Auto) 7.8, Lymph # (Auto) 3.9, [place] # (Auto) 0.6, Eos # (Auto) 0.6 H, Baso # (Auto) 0.2, Sodium 134 L, Potassium 4.8, Chloride 103, Carbon Dioxide 26, Anion Gap 9.8, BUN 16, Creatinine 1.10 H, Estimated Creat Clear 64, Estimated GFR 53 L, Est GFR ( Amer) 64, Glucose 262 H, Lactate 3.6 H, Calcium 10.4 H, Total Bilirubin 0.8, AST 27, ALT 33, Alkaline Phosphatase 82, Troponin I < 0.01, Total Protein 7.7, Albumin 4.6, Globulin 3.1, Albumin/Globulin Ratio 1.5, Lipase 160, Serum HCG, Qual Negative 07/11/24 19:06: Urine Color Yellow, Urine Appearance Clear, Urine pH 6.0, Ur Specific [place] 1.010, Urine Protein Negative, Urine Glucose (UA) 3+, Urine Ketones Negative, Urine Blood Negative, Urine Nitrate Negative, Urine Bilirubin Negative, Urine Urobilinogen 0.2, Ur Leukocyte Esterase Negative, Urine RBC Occasional, Urine WBC 3-5, Ur Squamous Epith Cells 10-20, Urine Bacteria 3+, Urine Yeast 1+ 07/11/24 18:00 07/11/24 18:00 Orders (Tests/Meds): ED MEDICATIONS Discontinued Medications Generic Name Dose Route Start Last Admin Trade Name Freq PRN Reason Stop Dose Admin Sodium Chloride 1,000 mls @ 999 mls/hr 07/11/24 17:50 07/11/24 18:06 Sod Chlor 0.9% 1000ml Bag IV 07/11/24 18:50 999 mls/hr .Q1H1M ONE Administration Metoclopramide HCl 10 mg 07/11/24 17:50 07/11/24 18:06 Metoclopramide Hcl 10mg/2ml Vial IVP 07/11/24 17:51 10 mg ONCE ONE Administration Morphine Sulfate 4 mg 07/11/24 17:50 07/11/24 18:06 Morphine 4mg/Ml Syringe IV 07/11/24 17:51 4 mg ONCE ONE Administration ORDERS Category Date Time Status CBC w/Auto Diff [Complete Blood Count Auto Diff] Stat Lab 07/11/24 18:00 Completed CMP [Comprehensive Metabolic Panel] Stat Lab 07/11/24 18:00 Completed Lactic Acid Stat Lab 07/11/24 18:00 Completed Lipase Stat Lab 07/11/24 18:00 Completed Serum [HCG Qualitative, Serum] Stat Lab 07/11/24 18:00 Completed Troponin I Q3H Lab 07/11/24 21:00 Ordered Troponin I Q3H Lab 07/12/24 00:00 Ordered Troponin I Stat Lab 07/11/24 18:00 Completed Urinalysis and Microscopic Stat Lab 07/11/24 19:06 Completed Urine Culture Stat Micro 07/11/24 19:06 Received ECG Data Tracing #1: I reviewed this ECG and interpreted as documented below: EKG interpreted by me personally at 1809. Sinus tachycardia with a ventricular rate of 119 bpm. QTc normal at 402. Normal axis. No ST elevations or depressions. Normal OK interval. Medical Decision Narrative: Cyndy Padron is a 49y female with a history of diabetes mellitus on metformin, hypertension, hyperlipidemia, lower extremity stents on Xarelto, reported history of mesenteric artery stenosis with previous balloon dilation of the artery who presents to the emergency department for complaints of upper abdominal pain and nausea intermittent over the past 1 year that is worsened since yesterday. On arrival, patient looks uncomfortable and is holding her abdomen. She is tachycardic but otherwise hemodynamically stable and afebrile. Breathing comfortably on room air with oxygen saturation at 95% SpO2. She has tenderness to palpation in the left upper, right upper and epigastric region with voluntary guarding. Abdomen is not peritonitic. Cardiopulmonary exam is unremarkable. Differential diagnosis includes: Pancreatitis, peptic ulcer disease, GERD, gastroparesis, aortic stenosis, ectopic , mesenteric artery stenosis, gastritis, ACS, among others. Patient was treated with 1 L normal saline, 4 mg IV morphine and 10 mg IV Reglan for nausea. Workup in the emergency department included: CBC, CMP, lipase, test, urinalysis, lactate, troponin, EKG. CTA of the abdomen/pelvis was considered, however the patient had a CT of the abdomen and pelvis on 07/02 that was reviewed by me personally and demonstrates no stenosis of the mesenteric arteries. No hernias are appreciated. Grossly unremarkable CT scan. See radiology report for details. Given this, and the fact that patient has had symptoms intermittently over the past year, is felt that this is likely unlikely to be beneficial at this time. Labs were interpreted by me personally mild leukocytosis with white blood cell count of 13, no left shift. CBC otherwise unremarkable nonactionable. Mild elevation in creatinine to 1.10, BUN normal. Electrolytes otherwise within normal limits. Glucose elevated 262. Lactate elevated at 3.6, however has been elevated on previous studies, likely secondary to metformin use. Liver enzymes within normal limits. Initial troponin less than 0.01. Lipase normal at 160. Negative test. Urine without evidence of infection and otherwise unremarkable nonactionable. On reassessment, patient reported significant improvement in her pain, however she still has some tenderness in her epigastric region but has had notable improvement in her nausea. She states that she has follow-up with her surgery assistant on the of this month. Is felt that she is appropriate for discharge at this time with prescription for Reglan as this seems to have helped her the most. Is felt that gastroparesis may be complaining a component given her diabetes that seems to be uncontrolled given her elevated glucose here in the emergency department. She was encouraged to follow-up with her surgery assistant as scheduled. Return precautions were given. All questions were answered. She demonstrated understanding and was in agreement this plan. She was then discharged from the emergency department in stable condition. Critical Care Critical Care Time Critical Care Time: No
[2024-07-11 18:00] VITALS: BP 119/92; PULSE 126; O2SAT 95
--- NOTE | 2024-07-11 18:05 | ECG_ITS ---
APPROVED REPORT Exam: Resting ECG HR:119 bpm ECG Measurements Heart Rate 119 AXES MO 171 P 74 QRSd 101 QRS 79 QT 331 T 53 QTc 402 Conclusion SINUS TACHYCARDIA ABNORMAL RHYTHM ECG No STEMI Electronically signed by : AJAY MAYERS, 07/12/2024 03:23:10
[2024-07-11] MEDS: METOCLOPRAMIDE HCL 10MG/2ML VIAL 10 MG IVP (18:06)
[2024-07-11] MEDS: MORPHINE 4MG/ML SYRINGE 4 MG IV (18:06)
[2024-07-11] MEDS: 0.9 % SODIUM CHLORIDE 1000ML 1,000 ML 999 ML IV (18:06)
[2024-07-11 18:12] LABS: Basophils # 0.2 K/mm3 (0-0.2); Basophils % 1.8 % (0.1-2.0); Eosinophils # 0.6 K/mm3 (0.0-0.4); Eosinophils % 4.4 % (0.1-12.0); Hemoglobin 16.1 g/dL (12.2-16.2); Lymphocytes # 3.9 K/mm3 (0.7-4.5); Lymphocytes % 29.6 % (10-50); Mean Corpuscular HGB Conc 33.4 g/dL (31.8-35.4); Mean Corpuscular Hemoglobin 28.6 pg (27.0-31.2); Mean Corpuscular Volume 85.4 fl (81-99); Mean Platelet Volume 8.1 fl (7.4-10.4); Monocytes # 0.6 K/mm3 (0.1-1.0); Monocytes % 4.6 % (1.7-9.3); Neutrophils # 7.8 K/mm3 (1.8-7.8); Neutrophils % 59.7 % (37.0-80.0); Platelet Count 338 K/mm3 (142-424); Red Blood Count 5.62 M/mm3 (4.20-5.40); Red Cell Distribution Width 13.8 % (11.5-17.5)
[2024-07-11 18:20] LABS: Alanine Aminotransferase 33 U/L (12-78); Albumin Level 4.6 g/dl (3.5-5.0); Albumin/Globulin Ratio 1.5 (1.1-1.8); Alkaline Phosphatase 82 U/L (38-126); Anion Gap 9.8 mEq/L (5-15); Aspartate Amino Transferase 27 U/L (14-36); Bilirubin,Total 0.8 mg/dl (0.2-1.3); Blood Urea Nitrogen 16 mg/dl (7-17); Calcium 10.4 mg/dl (8.4-10.2); Carbon Dioxide 26 mmol/L (22.0-30.0); Chloride 103 mmol/L (98-107); Creatinine Clearance Estimated 64 mL/min (50-200); Estimated Glomerular Filt Rate 53 ml/min (>60); GFR (African American) 64 ML/MIN (>60); Globulin 3.1 g/dL (1.3-3.2); Glucose 262 mg/dl (74-100); Lipase 160 U/L (23-300); Potassium 4.8 mmoL/L (3.5-5.1); Sodium 134 mmol/L (136-145); Total Protein,Serum 7.7 g/dl (6.3-8.2)
[2024-07-11 18:22] LABS: Lactic Acid 3.6 mmol/L (0.7-2.1)
[2024-07-11 18:30] VITALS: BP 116/75; PULSE 106; O2SAT 95
[2024-07-11 18:48] LABS: Troponin I < 0.01 ng/ml (0.00-0.034)
[2024-07-11 19:00] VITALS: BP 111/70; PULSE 108; O2SAT 95
[2024-07-11 19:00] LABS: HCG Qualitative, Serum Negative (Negative)
[2024-07-11 19:11] LABS: Microscopic, Urine URINE MICROSCOPIC (MICROSCOPIC)
[2024-07-11 19:13] LABS: Appearance,Urine CLEAR (Clear); Bilirubin,Urine Negative (Negative); Blood, Urine Negative (Negative); Color,Urine YELLOW (Yellow); Glucose,Urine (UA) 3+ (Negative); Ketones,Urine Negative (Negative); Leukocyte Esterase,Urine Negative (Negative); Nitrate,Urine Negative (Negative); Protein,Urine Negative (Negative); Urobilinogen,Urine 0.2 EU/dl (0.2)
[2024-07-11 19:27] LABS: RBC,Urine Occasional #/hpf (0-3)
[2024-07-11 19:28] LABS: Bacteria,Urine 3+ /lpf; Yeast,Urine 1+ /lpf
[2024-07-11 19:59] VITALS: BP 111/70; PULSE 102; RESP 18; TEMP 36.8; O2SAT 95
== END 2024-07-11 20:04 | disposition home or self-care (01) ==
PROVIDERS: Emergency Provider Student in an Organized Health Care Education/Training Program; PCP Nurse Practitioner Family
DX: R10.13 Epigastric pain (principal); R11.0 Nausea
CPT/HCPCS: 80053; 81001; 83605; 83690; 84484; 84703; 85025; 87086; 93005; 96361; 96374; 96375; 99283; J2270; J2765; J7030

== ENCOUNTER 2024-07-22 09:18 | Outpatient (CLI) | payer BC, SELFPAY ==
--- NOTE | 2024-07-22 09:21 | MR_ITS ---
PROCEDURE INFORMATION: Exam: MR Lumbar Spine Without Contrast Exam date and time: 07/22/2024 9:24 AM Age: 49 years old Clinical indication: Low back pain; Additional info: Low back pain worse on left side. Left leg pain, numbness and tingling TECHNIQUE: Imaging protocol: Magnetic resonance imaging of the lumbar spine without contrast. COMPARISON: CT ANGIO ABDOMEN PELVIS 07/03/2024 12:06 AM FINDINGS: Bones/joints: The vertebral body heights are maintained. There is slight grade 1 retrolisthesis of L4 on L5 and L5 on S1. Otherwise alignment is maintained. There is [id number] multilevel degenerative disc disease. Spinal cord: Visualized cord, conus medullaris and cauda equina are unremarkable without compression. L1-L2: No significant disc bulge or herniation. No severe spinal canal stenosis. No significant neural foraminal narrowing. L2-L3: There is mild diffuse disc bulging without significant spinal canal or neural foraminal stenosis. L3-L4: There is a small to moderate-sized left-sided disc protrusion which appears to cause mass effect on the central left L4 nerve roots in the left lateral recess. There is wxft-gl-bsjchxjn spinal canal stenosis secondary to the disc protrusion and ligamentum flavum/facet hypertrophy. The neural foramina appear patent. L4-L5: There is a moderate-sized central/left-sided disc protrusion which effaces the anterior thecal sac and appears to cause mass effect on the central L5 nerve roots. There is moderate spinal canal stenosis secondary to the disc protrusion and ligamentum flavum/facet hypertrophy. There is severe left neural foraminal stenosis secondary to foraminal disc osteophyte bulging and facet hypertrophy. The right neural foramen appears patent. L5-S1: There is a small to moderate-sized central disc protrusion which partially effaces the anterior thecal sac and appears to cause mild mass effect on the central S1 nerve roots. There is mild spinal canal stenosis. There is [id number]-fjhlyqfw bilateral neural foraminal stenosis secondary to foraminal disc bulging and facet hypertrophy. Soft tissues: Unremarkable. IMPRESSION: Disc protrusions as described at L3-L4, L4-L5, and L5-S1. There is moderate spinal canal stenosis at L4-L5. Please see above for specific findings at each level.
== END 2024-07-22 23:59 | disposition home or self-care (01) ==
LOC: RAD 09:18
PROVIDERS: PCP Nurse Practitioner Family; Visit Provider Nurse Practitioner Family
DX: M48.061 Spinal stenosis, lumbar region without neurogenic claudication (principal)
CPT/HCPCS: 72148

== ENCOUNTER 2024-08-01 12:50 | Outpatient (CLI) | payer BC, SELFPAY ==
--- NOTE | 2024-08-01 12:50 | US_ITS ---
PROCEDURE: US TRANSVAGINAL CLINICAL INDICATION: AUB COMPARISON: CT CT ANGIO ABDOMEN PELVIS from 07/03/2024 FINDINGS: Transvaginal sonographic images of the pelvis were obtained. UTERUS: 7.9 cm x 4.9 cmx 3.6 cm anteverted with a combined endometrial thickness of 7.5mm. The endometrium appears homogeneous A scar is seen. There is a small fluid collection within the scar. LEFT OVARY: 2.3cmx3.2cmx2.6cm with a volume of 9.9ml. There is a follicle in the left ovary measuring 2.0 cm x 1.5 cm x 1.7 cm RIGHT OVARY: 3.6 cmx 1.8 cmx2.4cm with a volume of 8.1ml. There are couple of small hyperechoic areas within the right ovary. Both ovaries are seen and appear normal. Doppler flow to both ovaries are seen. There is no fluid in the cul-de-sac. IMPRESSION: 1. Anteverted uterus normal in shape and size. The endometrium is 7.5 mm and homogeneous. There is a fluid collection within the scar in the lower uterine segment. 2. Both ovaries are seen and appear normal. There is a 2.0 cm follicle in the left ovary. There are a couple of small hyperechoic calcified areas in the right ovary. 3. No fluid in the cul-de-sac. Dictated by: Ethan Zimmerman MD 08/02/2024 09:14 Ethan Zimmerman MD in OV 08/02/2024 09:14
== END 2024-08-01 23:59 | disposition home or self-care (01) ==
LOC: RAD 12:50
PROVIDERS: PCP Nurse Practitioner Family; Visit Provider Obstetrics & Gynecology
DX: N93.9 Abnormal uterine and vaginal bleeding, unspecified (principal); R10.2 Pelvic and perineal pain
CPT/HCPCS: 76830

== ENCOUNTER 2024-10-09 11:32 | Outpatient (CLI) | payer BC, SELFPAY ==
[2024-10-09 12:00] LABS: Urine Pregnancy, HCG Qual. Negative (Negative)
[2024-10-09 12:01] LABS: Basophils # 0.1 K/mm3 (0-0.2); Basophils % 0.9 % (0.1-2.0); Eosinophils # 0.3 K/mm3 (0.0-0.4); Eosinophils % 3.1 % (0.1-12.0); Hematocrit 46.5 % (37.0-47.0); Hemoglobin 15.5 g/dL (12.2-16.2); Lymphocytes # 3.1 K/mm3 (0.7-4.5); Lymphocytes % 29.2 % (10-50); Mean Corpuscular HGB Conc 33.3 g/dL (31.8-35.4); Mean Corpuscular Hemoglobin 28.9 pg (27.0-31.2); Mean Corpuscular Volume 86.6 fl (81-99); Mean Platelet Volume 10.2 fl (7.4-10.4); Monocytes # 0.7 K/mm3 (0.1-1.0); Monocytes % 6.4 % (1.7-9.3); Neutrophils # 6.5 K/mm3 (1.8-7.8); Neutrophils % 60.2 % (37.0-80.0); Platelet Count 368 K/mm3 (142-424); Red Blood Count 5.37 M/mm3 (4.20-5.40); Red Cell Distribution Width 12.6 % (11.5-17.5); White Blood Count 10.8 K/mm3 (4.8-10.8)
[2024-10-09 12:30] LABS: Chloride 103 mmol/L (98-107); Sodium 139 mmol/L (136-145)
[2024-10-09 12:31] LABS: Potassium 4.6 mmoL/L (3.5-5.1)
[2024-10-09 12:33] LABS: Blood Urea Nitrogen 13 mg/dl (7-17); Estimated Glomerular Filt Rate 67 ml/min (>60); GFR (African American) 81 ML/MIN (>60)
[2024-10-09 12:34] LABS: Anion Gap 15.6 mEq/L (5-15); Calcium 10.3 mg/dl (8.4-10.2); Carbon Dioxide 25 mmol/L (22.0-30.0); Glucose 195 mg/dl (74-100)
== END 2024-10-09 23:59 | disposition home or self-care (01) ==
LOC: PREOP 11:33
PROVIDERS: Nurse Practitioner; PCP Nurse Practitioner Family; Visit Provider Student in an Organized Health Care Education/Training Program
DX: Z01.812 Encounter for preprocedural laboratory examination (principal); S03.00XA Dislocation of jaw, unspecified side, initial encounter; H93.12 Tinnitus, left ear; H92.03 Otalgia, bilateral; H69.93 Unspecified Eustachian tube disorder, bilateral
CPT/HCPCS: 36415; 80048; 81025; 85025

== ENCOUNTER 2024-10-16 08:11 | Day surgery (SDC) | payer BC, SELFPAY ==
[2024-10-09 10:17] VITALS: BMI 38.5
[2024-10-09 12:40] VITALS: BMI 38.9
--- NOTE | 2024-10-10 15:53 | SUR.PREOP ---
Received call from L.King QUIROZ. Per Dr. Galvan patient is to stop blood thinner 2 days prior to surgery date. Pt notified per 's office.
--- NOTE | 2024-10-14 10:08 | SUR.PREOP ---
Spoke w/ R. JULEE Elise. Verified ok for pt to hold Xarelto for next 2 days from anesthesia standpoint. Pt notified.
[2024-10-16] VITALS (10 sets, daily range): BP systolic 143–158; BP diastolic 65–109; PULSE 79–100; RESP 14–18; TEMP 36.2–36.7; O2SAT 90–97
[2024-10-16] MEDS: LACTATED RINGERS 1000ML 1,000 ML 25 ML IV (08:48)
--- NOTE | 2024-10-16 09:00 | ECG_ITS ---
APPROVED REPORT Exam: Resting ECG HR:86 bpm ECG Measurements Heart Rate 86 AXES MD 155 P 47 QRSd 105 QRS 25 QT 360 T 31 QTc 403 Conclusion SINUS RHYTHM NORMAL ECG UNCONFIRMED REPORT Electronically signed by : Elijah Bartholomew MD 10/18/2024 09:19:36
--- NOTE | 2024-10-16 09:35 | EXP.ANES.CKL ---
[facility] Disclaimer: The information contained in this section may have been updated after the patient was seen, as this information can be updated by other users. Medical History Dyspareunia TMJ (dislocation of temporomandibular joint) Tinnitus, left ear Otalgia, bilateral Pelvic pain Abnormal uterine bleeding Disorder of both eustachian tubes Bilateral chronic serous otitis media Chronic sinusitis GERD (gastroesophageal reflux disease) Smoking greater than 30 pack years Dyspnea on exertion Granulomatous lung disease Allergic rhinitis Chronic cough Pulmonary emphysema Abnormal ankle brachial index (ANTOINE) Neuropathy Hyperlipidemia Diabetes Surgical History History of placement of ear tubes History of adenoidectomy History of section History of tonsillectomy History of cholecystectomy Family History Other Cancer Diabetes Heart attack Hypertension Stroke Social History Smoking Status: Current every day smoker tobacco type: cigarettes packs per day: 1 second hand exposure: No alcohol intake: never substance use type: denies use current occupational status: unemployed Travel in the last 8 weeks: None household members: spouse housing: house number of children: 1 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 caffeine: Yes Have you lived/traveled outside [place] in past 30 days?: No Contact w/someone who lives/traveled outside US past 30 days?: No Exposure to someone with infectious disease in past 14 days?: No Do you have a fever (greater than 100.4 F or 38 C)?: No Have you tested positive for COVID-19: No Exposed to someone with COVID-19 in past 14 days?: No Do you have a sore throat?: No Do you have a cough?: No Do you have any weakness?: No Are you experiencing any nausea/vomitting?: No Do you have any diarrhea?: No Are you experiencing any unusual bleeding?: No Do you have any muscle aches/pain?: No Do you have any abdominal pain?: No Are you experiencing loss of taste or smell?: No [facility] Anesthesia Checklist Patient Identification Patient Identification: Arm Band and Verbal (Name & ) Structural Data Admitted From: Home Planned Operative Procedure/s: Eustachian tube dilation Consent for Planned Operative Procedure(s) Verified: Yes Verified Documents: Surgical Consent and History and Physical NPO Status Verified Time NPO: 00:00 Chart Verification Results Verified: HCG Additional verifications Anesthesia Reactions: No Hx Blood Transfusions: No Blood Transfusion Reaction: No Airway Assessment Mallampati Score:: Class II C-Spine Mobility Assessed: Yes TMJ Mobility Assessed: Yes Dentition: Poor Dentition (1 loose. Patient understands risks of damage) Neurological Assessment Level of Consciousness: Awake Hx Seizures: No Numbness or tingling in extremities: No Anesthesia Plan Anesthesia Risk discussed: Yes Anesthesia Plan: Verified ASA Class: III Anesthesia Type: General
--- NOTE | 2024-10-16 10:10 | P.OP_ITS ---
Date of procedure: 10/16/24 Pre-op Diagnosis:: Eustachian tube dysfunction Post-op Diagnosis:: same Procedure performed:: bilateral Eustachian tube balloon dilation Surgeon:: Gilbert Galvan MD ALLERGY AND IMMUNOLOGY CHIEF:: Srinivasa Jones Anesthesia: LMA Estimated blood loss (mL): 3 Operative findings:: bilateral ET balloon dilation Operative note:: The patient was brought to the OR, laid in the supine position, anesthesia with an LMA was induced. Patient was prepped and draped in usual fashion. Afrin- soaked pledgets were used to decongest her nares. First starting on the right using the 0 degree endoscope I visualized the nasopharynx and right eustachian tube orifice. It was atraumatically catheterized with the eustachian tube dilator for 2 minutes. There was minimal bleeding. I then went to the left side and again the left eustachian tube orifice was directly visualized with the 0 degree nasal endoscope. The eustachian tube orifice was catheterized atraumatically with eustachian tube balloon and then dilated for 2 minutes. There was minimal bleeding. All Afrin-soaked pledgets were then removed. Counts were confirmed correct. She was then turned back over to anesthesia to be awoken. Condition: stable Disposition: PACU Complications:: none
--- NOTE | 2024-10-16 10:10 | EXP.ANES.I ---
[facility] [place] Anesthesia Record Part I Anesthesia Record I Intake, IV Amount: 300 Hydration: Adequate Estimated blood loss (mL): 0 Urine output (mL): 0 Blood Pressure: 155/109 SaO2: 92 Pulse Rate: 100 Airway Patency: Patent Respiratory Rate: 16 Temperature: 98.1 F Patient is:: Awake Stable to PACU at:: 10:08
--- NOTE | 2024-10-16 10:30 | SUR.PHASEI ---
Pt instructed on use of IS. Pt was able to demonstrate back appropriately. Sat increased from upper 80's/low 90's to upper 90's.
[2024-10-16] MEDS: OXYMETAZOLINE NASAL SPRAY 0.05% 15ML 30 ML NS (11:52)
--- NOTE | 2024-10-16 14:42 | EXP.ANES.II ---
[facility] [place] Anesthesia Record Part II Anesthesia Record Part II Discharge Time: 10:38 Destination: [facility] Day [facility] (OP Surgery) PACU nurse assessment reviewed?: Yes Patient Condition:: Good Anesthesia Complications:: None Swallowing reflex intact?: Yes Airway Patency: Patent Cyanosis?: No Blood Pressure: 147/65 SaO2: 96 Respiratory Rate: 16 Pulse Rate: 91 Temperature: 97.9 F Mental Status: Alert & Oriented Pain level:: 0 Nausea and/or vomitting:: None Intake, IV Amount: 0 Hydration: Adequate
== END 2024-10-16 11:10 | disposition home or self-care (01) ==
PROVIDERS: PCP Nurse Practitioner Family; Visit Provider Student in an Organized Health Care Education/Training Program
PROC: (CPT 69706; principal; 2024-10-16 10:00)
DX: H69.83 Other specified disorders of Eustachian tube, bilateral (principal)
CPT/HCPCS: 69706; 93005; C1726; J2250; J2405; J3010; J7120

== ENCOUNTER 2024-11-24 18:28 | Emergency (ER) | payer BC, SELFPAY ==
[2024-11-24] VITALS (11 sets, daily range): BP systolic 91–138; BP diastolic 61–90; PULSE 105–154; RESP 13–40; TEMP 36.6; O2SAT 94–99; BMI 37.2
--- NOTE | 2024-11-24 18:38 | ECG_ITS ---
APPROVED REPORT Exam: Resting ECG HR:142 bpm ECG Measurements Heart Rate 142 AXES PA 128 P 73 QRSd 98 QRS 91 QT 321 T 67 QTc 403 Conclusion SINUS TACHYCARDIA, POSSIBLE ATRIAL FLUTTER BORDERLINE RIGHT AXIS DEVIATION [QRS AXIS > 90] NONSPECIFIC T-WAVE ABNORMALITY ABNORMAL RHYTHM ECG No STEMI Electronically signed by : AJAY MAYERS, 11/26/2024 06:47:37
--- NOTE | 2024-11-24 18:46 | PC.NURSE ---
DR HOFFMAN AT BEDSIDE
--- NOTE | 2024-11-24 18:58 | CT_ITS ---
PROCEDURE INFORMATION: Exam: CTA Abdominal Aorta and Bilateral Lower Extremities (Run-off) With Contrast Exam date and time: 11/24/2024 8:23 PM Age: 49 years old Clinical indication: Other: History of lle ischemia; Additional info: History of lle ischemia, new severe pain TECHNIQUE: Imaging protocol: Computed tomographic angiography of the of the abdominal aorta, pelvis and bilateral lower extremities with contrast. 3D rendering (Not supervised by radiologist): MIP and/or 3D reconstructed images were created by the technologist. Radiation optimization: All CT scans at this facility use at least one of these dose optimization techniques: automated exposure control; mA and/or kV adjustment per patient size (includes targeted exams where dose is matched to clinical indication); or iterative reconstruction. Contrast material: ISOVUE; Contrast volume: 120 ml; Contrast route: INTRAVENOUS (IV); COMPARISON: CT ANGIO ABDOMEN PELVIS 07/03/2024 12:06 AM FINDINGS: Tubes, catheters and devices: Postprocedural changes compatible with stenting of the left superficial femoral artery with occlusion 2.4 cm proximal to the stent, which has no contrast opacification, and reopacification of the distal left femoral artery 4.8 cm from the stent. Aorta: Mild calcific atherosclerotic disease is scattered throughout the abdominal aorta without aneurysmal dilatation. Celiac trunk and mesenteric arteries: No occlusion or significant stenosis. Renal arteries: No occlusion or significant stenosis. Right iliac arteries: No occlusion or significant stenosis. Right femoral/popliteal arteries: No occlusion or significant stenosis. Right infrapopliteal arteries: No occlusion or significant stenosis. Left iliac arteries: Mild mixed calcific and noncalcified atherosclerotic disease of the left common iliac artery without stenosis. Left femoral/popliteal arteries: No occlusion or significant stenosis. Left infrapopliteal arteries: No occlusion or significant stenosis. Lungs: Dependent bilateral lung base opacities favor atelectasis. Liver: There is diffuse hypoattenuation of the liver compatible with moderate hepatic steatosis. Gallbladder and biliary ducts: There are surgical clips within the gallbladder fossa. Pancreas: Unremarkable. No mass. No ductal dilation. Spleen: Normal. No splenomegaly. Adrenal glands: Normal. No mass. Kidneys and ureters: Normal. No mass. Stomach and bowel: Unremarkable. No obstruction. No mucosal thickening. Appendix: No evidence of appendicitis. Urinary bladder: Bladder is decompressed limiting its evaluation. Reproductive: Unremarkable as visualized. Intraperitoneal space: Unremarkable. No free air. No significant fluid collection. Lymph nodes: No lymphadenopathy. Bones/joints: Moderate loss of intervertebral disc space with degenerative changes involving L2 through S1. Soft tissues: Unremarkable. IMPRESSION: Postprocedural changes compatible with stenting of the left superficial femoral artery with occlusion 2.4 cm proximal to the stent, which has no contrast opacification, and reopacification of the distal left femoral artery 4.8 cm from the stent. Recommend vascular surgery consultation.
--- NOTE | 2024-11-24 18:58 | PC.NURSE ---
ROUNDED ON THE PT. THE PT VOICES THAT SHE DOES NOT NEED ANYTHING AT THIS TIME. CALL LIGHT IS WITHIN REACH OF THE PT.
--- NOTE | 2024-11-24 18:59 | CT_ITS ---
PROCEDURE INFORMATION: Exam: CTA Chest With Contrast Exam date and time: 11/24/2024 8:17 PM Age: 49 years old Clinical indication: Other: Persistent tachycardia; Additional info: Persistent tachycardia, history of dvt TECHNIQUE: Imaging protocol: Computed tomographic angiography of the chest with contrast. Exam focused on the arteries. 3D rendering (Not supervised by radiologist): MIP and/or 3D reconstructed images were created by the technologist. Radiation optimization: All CT scans at this facility use at least one of these dose optimization techniques: automated exposure control; mA and/or kV adjustment per patient size (includes targeted exams where dose is matched to clinical indication); or iterative reconstruction. Contrast material: ISOVUE; Contrast volume: 80 ml; Contrast route: INTRAVENOUS (IV); COMPARISON: CT ANGIO CHEST 07/03/2024 12:06 AM FINDINGS: Pulmonary arteries: No CT angiography evidence of pulmonary embolism. Aorta: Unremarkable. No aortic aneurysm. No aortic dissection. Lungs: Dependent bilateral lung base opacities favor atelectasis. Right lower lobe calcified nodule compatible with prior granulomatous process. Pleural spaces: Unremarkable. No pneumothorax. No pleural effusion. Heart: Unremarkable. No cardiomegaly. No pericardial effusion. Coronary arteries: Mild three-vessel calcific atherosclerotic disease of the coronary arteries is present. Lymph nodes: Unremarkable. No enlarged lymph nodes. Gallbladder and biliary ducts: There are surgical clips within the gallbladder fossa. Bones/joints: Unremarkable. No acute fracture. Soft tissues: Unremarkable. Other findings: Motion artifacts slightly limits sensitivity and specificity of the examination. IMPRESSION: 1. No CT angiography evidence of pulmonary embolism. 2. Motion artifacts slightly limits sensitivity and specificity of the examination.
[2024-11-24 19:15] LABS: Basophils # 0.1 K/mm3 (0-0.2); Basophils % 0.8 % (0.1-2.0); Eosinophils # 0.2 K/mm3 (0.0-0.4); Eosinophils % 1.7 % (0.1-12.0); Hematocrit 45.2 % (37.0-47.0); Hemoglobin 15.4 g/dL (12.2-16.2); Lymphocytes # 4.8 K/mm3 (0.7-4.5); Lymphocytes % 33.3 % (10-50); Mean Corpuscular HGB Conc 34.1 g/dL (31.8-35.4); Mean Corpuscular Hemoglobin 29.3 pg (27.0-31.2); Mean Corpuscular Volume 85.9 fl (81-99); Mean Platelet Volume 10.7 fl (7.4-10.4); Monocytes # 0.9 K/mm3 (0.1-1.0); Monocytes % 6.2 % (1.7-9.3); Neutrophils # 8.4 K/mm3 (1.8-7.8); Neutrophils % 57.7 % (37.0-80.0); Platelet Count 332 K/mm3 (142-424); Red Blood Count 5.26 M/mm3 (4.20-5.40); Red Cell Distribution Width 12.4 % (11.5-17.5); White Blood Count 14.5 K/mm3 (4.8-10.8)
[2024-11-24] MEDS: HYDROMORPHONE 2MG/ML SYRINGE 0.5 MG IV (19:21)
[2024-11-24] MEDS: ONDANSETRON 4MG/2ML VIAL 4 MG IV (19:21)
[2024-11-24] MEDS: KETOROLAC 30MG/ML VIAL 15 MG IV (19:21)
[2024-11-24 19:22] LABS: Albumin Level 4.7 g/dl (3.5-5.0); Chloride 103 mmol/L (98-107); INR 0.83 (0.9-1.1); Prothrombin Time 9.4 seconds (9.2-12.1)
[2024-11-24] MEDS: 0.9 % SODIUM CHLORIDE 1000ML 1,000 ML 999 ML IV (19:22)
--- NOTE | 2024-11-24 19:22 | HMH.EDGENADL ---
Discharge Plan Disposition Patient Disposition: Xfer Short-Term Hosp Chief Complaint: PAIN Prescriptions Prescriptions: No Action lisinopril 5 mg tablet 5 mg PO DAILY alprazolam [Xanax] 0.25 mg tablet 0.25 mg PO BID PRN (Reason: anxiety) Qty: 14 0RF albuterol sulfate [Proventil HFA] 90 mcg/actuation HFA aerosol inhaler 2 puff INHALATION Q6H Qty: 6.7 0RF Rx Instructions: administer with spacer atorvastatin 40 mg tablet 40 mg PO DAILY Patient Comments: TAKE ONE (1) TABLET EVERY DAY BY ORAL ROUTE. gabapentin 400 mg capsule 400 mg PO TID Patient Comments: TAKE ONE (1) CAPSULE BY MOUTH THREE (3) TIMES DAILY metformin 1,000 mg tablet 1,000 mg PO BID Patient Comments: TAKE ONE (1) TABLET TWICE A DAY BY ORAL ROUTE. Xarelto 2.5 mg tablet 2.5 mg PO DAILY Patient Comments: TAKE ONE (1) TABLET TWICE A DAY BY ORAL ROUTE. loratadine 10 mg tablet 10 mg PO DAILY Patient Comments: TAKE ONE (1) TABLET EVERY DAY BY ORAL ROUTE FOR 30 DAYS. levocetirizine [Xyzal] 5 mg tablet 5 mg PO DAILY Qty: 30 2RF esomeprazole magnesium 40 mg capsule,delayed release(DR/EC) 40 mg PO DAILY Patient Comments: TAKE ONE (1) CAPSULE BY MOUTH EVERY DAY bupropion HCl 150 mg tablet sustained-release 12 hr 150 mg PO BID Jardiance 10 mg tablet 10 mg PO DAILY albuterol sulfate 0.63 mg/3 mL solution for nebulization 0.63 mg inhalation Q4-6H PRN (Reason: .) Trelegy Ellipta 200-62.5-25 mcg blister with device 1 inh inhalation DAILY Patient Comments: INHALE ONE (1) PUFF ONCE A DAY USE ACCORDING TO ASTHMA ACTION PLAN. RINSE MOUTH OUT AFTER EACH USE. metoprolol succinate 50 mg tablet extended release 24 hr 50 mg PO DAILY Qty: 90 1RF metoclopramide HCl 10 mg tablet 10 mg PO Q6H PRN (Reason: nausea and vomiting) 14 Days Qty: 56 0RF Referrals Follow up/Referrals: Milady Grullon APRN [Primary Care Provider] - See instructions Clinical Impressions Clinical Impression: Ischemia of left lower extremity Print Language Print Language: Omani Discharge ED Provider: Justyna,Ross A General Adult HPI General Chief complaint: PAIN Stated complaint: LT leg pain Time Seen by Provider: 11/24/24 18:30 Mode of Arrival: Wheelchair Source of Information: Patient Limitations: No Limitations Description of Symptoms (Recalled from ER Triage Doc. by RN): Reports pain and pulsation in her left groin for approx 1 week. States she has a history of stents and clots in that leg and when the pain became unbearable she decided to come to the ER for further evaluation. History of Present Illness HPI narrative: Please note that above description of symptoms, in this electronic medical record under categorization of recalled from ER triage doctor by RN are reflective of an initial nursing assessment, however, is not reflective of my full history and physical exam that was personally taken and clarified. Consequentially, this preceding description of symptoms, which may include the patient's categorized chief complaint in the EMR, do not reflect my personal clinical impression, and the ultimate description of history of present illness and patient stated complaints should be deferred to this section of the note. Unless stated otherwise or congruent with this section of the note, additional signs, symptoms, or incongruence should be interpreted as inaccurate with my clinical impression. Related Data Home Medications ?Medication ?Instructions ?Recorded ?Confirmed lisinopril 5 mg tablet 5 mg PO DAILY 02/04/21 11/24/24 albuterol sulfate 0.63 mg/3 mL 0.63 mg inhalation Q4-6H PRN . 07/12/23 11/24/24 solution for nebulization bupropion HCl 150 mg tablet,12 hr 150 mg PO BID 07/12/23 11/24/24 sustained-release empagliflozin 10 mg tablet 10 mg PO DAILY 07/12/23 11/24/24 (Jardiance) atorvastatin 40 mg tablet 40 mg PO DAILY 02/27/24 11/24/24 gabapentin 400 mg capsule 400 mg PO TID 02/27/24 11/24/24 metformin 1,000 mg tablet 1,000 mg PO BID 02/27/24 11/24/24 rivaroxaban 2.5 mg tablet (Xarelto) 2.5 mg PO DAILY 02/27/24 11/24/24 loratadine 10 mg tablet 10 mg PO DAILY 04/09/24 11/24/24 fluticasone fur. 200 mcg-umeclid 1 inh inhalation DAILY 06/17/24 11/24/24 62.5 mcg-vilant 25 mcg inhalat.powder (Trelegy Ellipta) esomeprazole magnesium 40 mg 40 mg PO DAILY 07/29/24 11/24/24 capsule,delayed release Previous Rx's ?Medication ?Instructions ?Recorded alprazolam 0.25 mg tablet (Xanax) 0.25 mg PO BID PRN anxiety #14 tabs 02/16/21 albuterol sulfate 90 mcg/actuation 2 puff inhalation Q6H #6.7 grams 04/08/21 aerosol inhaler (Proventil HFA) metoprolol succinate 50 mg 50 mg PO DAILY #90 tabs 03/29/23 tablet,extended release 24 hr levocetirizine 5 mg tablet (Xyzal) 5 mg PO DAILY #30 tabs 04/09/24 metoclopramide HCl 10 mg tablet 10 mg PO Q6H PRN nausea and 07/11/24 vomiting 14 days #56 tabs Allergies Allergy/AdvReac Type Severity Reaction Status Date / Time No Known Allergies Allergy Verified 10/16/24 08:27 [facility] Disclaimer: The information contained in this section may have been updated after the patient was seen, as this information can be updated by other users. Medical History Dyspareunia TMJ (dislocation of temporomandibular joint) Tinnitus, left ear Otalgia, bilateral Pelvic pain Abnormal uterine bleeding Disorder of both eustachian tubes Bilateral chronic serous otitis media Chronic sinusitis GERD (gastroesophageal reflux disease) Smoking greater than 30 pack years Dyspnea on exertion Granulomatous lung disease Allergic rhinitis Chronic cough Pulmonary emphysema Abnormal ankle brachial index (ANTOINE) Neuropathy Hyperlipidemia Diabetes Surgical History History of placement of ear tubes History of adenoidectomy History of section History of tonsillectomy History of cholecystectomy Family History Other Cancer Diabetes Heart attack Hypertension Stroke Social History Smoking Status: Current every day smoker tobacco type: cigarettes packs per day: 1 second hand exposure: No alcohol intake: never substance use type: denies use current occupational status: unemployed Travel in the last 8 weeks: None household members: spouse housing: house number of children: 1 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 caffeine: Yes Have you lived/traveled outside [place] in past 30 days?: No Contact w/someone who lives/traveled outside US past 30 days?: No Exposure to someone with infectious disease in past 14 days?: No Do you have a fever (greater than 100.4 F or 38 C)?: No Have you tested positive for COVID-19: No Exposed to someone with COVID-19 in past 14 days?: No Do you have a sore throat?: No Do you have a cough?: No Do you have any weakness?: No Do you have any diarrhea?: No Are you experiencing any unusual bleeding?: No Do you have any muscle aches/pain?: No Do you have any abdominal pain?: No Are you experiencing loss of taste or smell?: No Other Medical History Have you received the Flu Vaccine for this season: No Have you received the Pneumonia Vaccine: No ROS Obtained: Yes All systems reviewed & no additional complaints except as documented Physical Exam General General appearance: alert, in distress (Secondary to pain) and obese Head Head exam: atraumatic and normocephalic Eye Eye exam: Present normal appearance, PERRL and EOMI Neck Neck exam: Present normal inspection, full ROM and trachea midline Respiratory Respiratory exam: Absent respiratory distress, wheezes, stridor, accessory muscle use or prolonged expiratory phase Cardiovascular Cardiovascular exam: Present normal rhythm, tachycardia and other (Pulses equal symmetric in upper and lower extremities) Abdominal Exam Abdominal exam: Present soft; Absent distention, tenderness, guarding or pulsatile mass Extremities Exam Extremities exam: Present other (Significant tenderness left lower extremity extending from proximal thigh medially down to near Achilles and distal calf. Good capillary refill, however patient has no obvious palpable pulses. Compartments are soft. Nonedematous); Absent edema Neurological Exam Neurological exam: Present alert, oriented X3 and CN II-XII intact; Absent motor sensory deficit Skin Skin exam: Present warm and dry; Absent diaphoresis or erythema Medical Decision Making Medical Records Medical records reviewed: Yes I reviewed the patient's medical records. Screening: Per USPSTF and CDC recommendations, given the prevalence of disease in our region, it is our hospital?s policy to screen for HIV and viral Hepatitis for all patients aged 18 and over and those with ongoing risk factors. Mikey Inquiry Pt receiving controlled substance: No Mikey was queried for this patient: No Vital Signs: 11/24/24 18:29 11/24/24 19:00 11/24/24 19:30 Temperature 97.9 F Temperature Source Oral Pulse Rate 146 H 131 H Pulse Rate [Radial] 154 H Respiratory Rate 18 18 40 H Blood Pressure 128/83 120/66 Blood Pressure [Right Arm] 138/90 Blood Pressure Mean Blood Pressure Mean [Right Arm] 106 Blood Pressure Source [Right Arm] Automatic Cuff Blood Pressure Position [Right Arm] Sitting 02 Sat by Pulse Oximetry 99 96 97 Oxygen Delivery Method Room Air 11/24/24 20:00 11/24/24 20:00 11/24/24 20:35 Temperature Temperature Source Pulse Rate 134 H 135 H 118 H Pulse Rate [Radial] Respiratory Rate 19 18 Blood Pressure 111/74 Blood Pressure [Right Arm] Blood Pressure Mean 87 Blood Pressure Mean [Right Arm] Blood Pressure Source [Right Arm] Blood Pressure Position [Right Arm] 02 Sat by Pulse Oximetry 97 96 94 L Oxygen Delivery Method 11/24/24 20:45 Temperature Temperature Source Pulse Rate 118 H Pulse Rate [Radial] Respiratory Rate 13 Blood Pressure Blood Pressure [Right Arm] Blood Pressure Mean Blood Pressure Mean [Right Arm] Blood Pressure Source [Right Arm] Blood Pressure Position [Right Arm] 02 Sat by Pulse Oximetry 97 Oxygen Delivery Method Lab Data Lab Results 11/24/24 19:08: WBC 14.5 H, RBC 5.26, Hgb 15.4, Hct 45.2, MCV 85.9, MCH 29.3, MCHC 34.1, RDW 12.4, Plt Count 332, MPV 10.7 H, Neut % (Auto) 57.7, Lymph % (Auto) 33.3, [place] % (Auto) 6.2, Eos % (Auto) 1.7, Baso % (Auto) 0.8, Neut # (Auto) 8.4 H, Lymph # (Auto) 4.8 H, [place] # (Auto) 0.9, Eos # (Auto) 0.2, Baso # (Auto) 0.1, PT 9.4, INR 0.83 L, APTT 25.0 L, Sodium 137, Potassium 5.6 H, Chloride 103, Carbon Dioxide 26, Anion Gap 13.6, BUN 13, Creatinine 1.00, Estimated Creat Clear 122, Estimated GFR 59, Est GFR ( Amer) 72, Glucose 261 H, Calcium 9.6, Magnesium 1.8, Total Bilirubin 1.2, AST 44 H, ALT 34, Alkaline Phosphatase 62, Total Creatine Kinase 73, Troponin I 0.03, NT-Pro-B Natriuret Pep < 20.0, Total Protein 7.9, Albumin 4.7, Globulin 3.2, Albumin/Globulin Ratio 1.5, TSH 3.88, Thyroxine (T4) 9.4 11/24/24 19:58: Urine Color Yellow, Urine Appearance Clear, Urine pH 5.5, Ur Specific [place] 1.015, Urine Protein Negative, Urine Glucose (UA) 3+, Urine Ketones Negative, Urine Blood Negative, Urine Nitrate Negative, Urine Bilirubin Negative, Urine Urobilinogen 0.2, Ur Leukocyte Esterase Negative, Urine RBC None, Urine WBC Occasional, Ur Squamous Epith Cells Occasional, Urine Bacteria None 11/24/24 19:08 11/24/24 19:08 Orders (Tests/Meds): ED MEDICATIONS Generic Name Dose Route Start Last Admin Trade Name Freq PRN Reason Stop Dose Admin Heparin Sodium/Dextrose 500 mls @ 40 mls/hr 11/24/24 20:15 11/24/24 20:38 Heparin 25,000 Units In D5w 500ml Premix IV 12/24/24 20:14 40 mls/hr .[id number] TONY Administration 2,000 UNIT/HR Miscellaneous 1 each 11/24/24 20:15 11/24/24 20:17 Heparin Drip Consult NOTAPPLIC 12/24/24 20:14 1 each CONSULT PHARMACY TONY Administration Sodium Chloride 10 ml 11/24/24 20:29 11/24/24 20:30 Sodium Chloride 0.9% 10ml Syr (Rad Only) IV 12/24/24 20:28 10 ml NEEDED PRN Administration Maintain IV Site Discontinued Medications Generic Name Dose Route Start Last Admin Trade Name Freq PRN Reason Stop Dose Admin Heparin Sodium (Porcine) 10,000 unit 11/24/24 20:06 11/24/24 20:38 Heparin Sodium 5,000 Unit/Ml Vial IV 11/24/24 20:07 10,000 unit ONCE ONE Administration Hydromorphone HCl 0.5 mg 11/24/24 18:59 11/24/24 19:21 Hydromorphone 2mg/Ml Syringe IV 11/24/24 19:00 0.5 mg ONCE ONE Administration Sodium Chloride 1,000 mls @ 999 mls/hr 11/24/24 18:59 11/24/24 19:22 Sod Chlor 0.9% 1000ml Bag IV 11/24/24 19:59 999 mls/hr .Q1H1M ONE Administration Iopamidol 200 ml 11/24/24 20:29 11/24/24 20:31 Iopamidol-370 (76%);100ml Bottle IV 11/24/24 20:30 200 ml ONCE ONE Administration Ketorolac Tromethamine 15 mg 11/24/24 18:59 11/24/24 19:21 Ketorolac 30mg/Ml Vial IV 11/24/24 19:00 15 mg ONCE ONE Administration Ondansetron HCl 4 mg 11/24/24 18:59 11/24/24 19:21 Ondansetron 4mg/2ml Vial IV 11/24/24 19:00 4 mg ONCE ONE Administration Sodium Chloride 100 ml 11/24/24 20:29 11/24/24 20:31 0.9 % Sodium Chloride 50 Ml Vial IV 11/24/24 20:30 100 ml ONCE ONE Administration ORDERS Category Date Time Status CT angio abdomen/femoral Stat Cat Scan 11/24/24 18:[address] angio chest PE protocol Stat Cat Scan 11/24/24 18:59 Completed POCUS Point of Care (ER Only) Stat Exams 11/24/24 19:06 Completed CK [Creatine Kinase] Stat Lab 11/24/24 19:08 Completed Complete Blood Count Auto Diff Stat Lab 11/24/24 19:08 Completed Comprehensive Metabolic Panel Stat Lab 11/24/24 19:08 Completed Heparin drip PTT [PTT Heparin (inpatient only)] Stat Lab 11/24/24 22:00 Ordered Lactic Acid Stat Lab 11/24/24 18:58 Ordered Magnesium Stat Lab 11/24/24 19:08 Completed NT Pro Brain Natriuretic Pep. Stat Lab 11/24/24 19:08 Completed PT INR [Prothrombin Time INR] Stat Lab 11/24/24 19:08 Completed PTT Heparin (inpatient only) Stat Lab 11/24/24 19:08 Completed T4 (Thyroxine) Stat Lab 11/24/24 19:08 Completed TSH [Thyroid Stimulating Hormone] Stat Lab 11/24/24 19:08 Completed Troponin I Q3H Lab 11/24/24 22:00 Ordered Troponin I Q3H Lab 11/25/24 01:00 Ordered Troponin I Stat Lab 11/24/24 19:08 Completed Urinalysis and Microscopic Stat Lab 11/24/24 19:58 Completed Medical Decision Narrative: 49-year-old female with a history of PAD complicated by mesenteric ischemia, left lower extremity ischemia status post stenting x 2 currently on Eliquis, hypertension, hyperlipidemia, diabetes, CAD presenting with left lower extremity pain. Patient states that the left lower extremity pain has gotten worse over the last week, but today, 11/24, got acutely worse. She had a stabbing, sharp pain in her proximal medial thigh just after waking up that radiated down to her leg medially and posteriorly in her calf. Cramping, intermittent, but severe most of the time. No redness, blue or purple toes, blanching or mottled skin, per her. She does state that her left lower extremity has been colder than usual. No swelling. Has not taken anything for the pain, came in for further evaluation. History was obtained via conversation with patient. On arrival, patient hemodynamically stable, alert, [oriented x4, ][appropriate, ]GCS [15], moving all extremities spontaneously, pupils equal and reactive to light. Full physical exam performed and significant for Significant tenderness left lower extremity extending from proximal thigh medially down to near Achilles and distal calf. Good capillary refill, however patient has no obvious palpable pulses. Compartments are soft. Nonedematous. Patient is tachycardic and appears to be in mild to moderate distress secondary to pain cannot get comfortable in bed. No pulsatile abdominal mass. No right lower extremity complaints. Cardiac exam with no murmurs gallops or rubs, lungs are clear. Differential includes arterial embolus, DVT, dissection, stent failure, early compartment syndrome, myositis, radiculopathy, among others. Patient placed on continuous cardiac monitoring and continuous pulse ox with initial blood pressure 138/90, heart rate 54, saturation 99% on room air. [Independent interpretation of EKG shows] sinus tachycardia versus ectopic atrial rhythm 142 bpm with MT 128, QRS 98, QTc 4 3 with no acute ischemic change. Rightward axis. Patient was given Toradol, fluids, Dilaudid, Zofran for symptomatic management[ and correction of underlying abnormalities]. Workup independently interpreted and significant for leukocytosis of 14,000 with neutrophilia. Patient's coags nonactionable. Chemistry with mild 0.6 negative troponin and BNP. Chemistry otherwise nonactionable. Thyroid studies normal. CK and lactate negative. Bedside [id number] ultrasound was performed, patient has no identifiable flow on left femoral artery, left femoral vein is compressible. She does have evidence of collateral flow given the fact that her popliteal artery has good pulsatile waveform. No evidence of DVT throughout the lower extremity veins. When looking for Doppler signal in foot and ankle, patient has refluxing arterial flow at posterior tibial artery. Was started on heparin bolus and drip. On independent interpretation of imaging, patient has occlusion of right lower extremity vascular stent with distal arterial flow consistent with ultrasound. See radiology read for full review of final results. On reevaluation, patient appears much more comfortable after meds, heparin bolus and drip. Given findings, given patient presentation, workup, history, this most likely represents left lower extremity ischemia. Because patient high risk for clinical decompensation if discharged, deemed appropriate for transfer and inpatient admission. Results were relayed to patient who voiced understanding and patient was agreeable to transfer, inpatient admission, and management. Patient was graciously accepted and transferred to [facility] for further definitive management, under Dr. Jimenes. Network Professional disclaimer Much of this encounter note is an electronic auto mechanics instructor spoken language to printed text. Electronic auto mechanics instructor of the spoken language may permit errors. Although I have reviewed the note, some errors may still exist. Procedures Limited Ultrasound Indication:: Limited DVT ultrasound Indication: Limited compression ultrasonography of the left lower extremity was performed to evaluate for non-compressibility of the deep veins in the patient. The ultrasound was performed with the following indications, as noted in the H&P: Extremity pain, history of ischemia Identified structures: Left common femoral vein, femoral vein, popliteal vein were examined. Findings: Lower extremity: Left CFV: Good compressibility Left FV good compressibility Left Popliteal vein: Good compressibility Impression: No evidence of deep venous thrombosis, however patient does have no appreciable arterial flow in the left femoral artery with collateral flow and reconstitution with good popliteal pulsatile waveform and arterial reflux distally and posterior tibial artery Images were saved to permanent archive The study was technically adequate CPT: 95367-63-[place] [id number]-HP 49938-82 (complete bilateral study) This study was performed by me, and I personally interpreted all images/videos. Based on my clinical judgement, these images were adequate and did not necessitate further imaging Critical Care Critical Care Time Critical Care Time: Yes (vascular) Attestation: On 11/24/24, the high probability of a clinically significant, sudden or life threatening deterioration of the following system(s) required my full and direct attention, intervention and personal management. The time I documented below is in addition to time spent performing reported procedures but includes the following listed in this critical care notation. Total Time Total Critical Care Time: 60
[2024-11-24 19:23] LABS: Potassium 5.6 mmoL/L (3.5-5.1); Sodium 137 mmol/L (136-145)
[2024-11-24 19:25] LABS: Alanine Aminotransferase 34 U/L (12-78); Anion Gap 13.6 mEq/L (5-15); Aspartate Amino Transferase 44 U/L (14-36); Blood Urea Nitrogen 13 mg/dl (7-17); Carbon Dioxide 26 mmol/L (22.0-30.0); Creatinine Clearance Estimated 122 mL/min (50-200); Estimated Glomerular Filt Rate 59 ml/min (>60); GFR (African American) 72 ML/MIN (>60); Magnesium 1.8 mg/dl (1.6-2.3)
[2024-11-24 19:26] LABS: Albumin/Globulin Ratio 1.5 (1.1-1.8); Alkaline Phosphatase 62 U/L (38-126); Bilirubin,Total 1.2 mg/dl (0.2-1.3); Calcium 9.6 mg/dl (8.4-10.2); Creatine Kinase 73 U/L (30-135); Globulin 3.2 g/dL (1.3-3.2); Glucose 261 mg/dl (74-100); Total Protein,Serum 7.9 g/dl (6.3-8.2)
[2024-11-24 19:35] LABS: NT Pro Brain Natriuretic Pep. < 20.0 pg/mL (0-125)
[2024-11-24 19:39] LABS: Troponin I 0.03 ng/ml (0.00-0.034)
[2024-11-24 19:43] LABS: T4 (Thyroxine) 9.4 ug/dl (5.53-11.0)
--- NOTE | 2024-11-24 19:53 | PC.NURSE ---
Pt ambulated to restroom with assistance.
[2024-11-24 19:57] LABS: Thyroid Stimulating Hormone 3.88 uIU/mL (0.465-4.68)
[2024-11-24 20:04] LABS: Microscopic, Urine URINE MICROSCOPIC (MICROSCOPIC)
[2024-11-24 20:05] LABS: Appearance,Urine CLEAR (Clear); Bilirubin,Urine Negative (Negative); Blood, Urine Negative (Negative); Color,Urine YELLOW (Yellow); Glucose,Urine (UA) 3+ (Negative); Ketones,Urine Negative (Negative); Leukocyte Esterase,Urine Negative (Negative); Nitrate,Urine Negative (Negative); PH,Urine 5.5 (5.0-8.5); Protein,Urine Negative (Negative); Specific Gravity, Urine 1.015 (1.005-1.030); Urobilinogen,Urine 0.2 EU/dl (0.2)
--- NOTE | 2024-11-24 20:11 | PC.NURSE ---
Pt to CT scan via wheelchair
[2024-11-24] MEDS: HEPARIN DRIP CONSULT 1 EACH NOTAPPLIC (20:17)
[2024-11-24 20:24] LABS: Squamous Epithelial Cell,Urine Occasional #/hpf (0-5); WBC,Urine Occasional #/hpf (0-3)
[2024-11-24] MEDS: SODIUM CHLORIDE 0.9% 10ML SYR (RAD ONLY) 10 ML IV (20:30)
[2024-11-24] MEDS: IOPAMIDOL-370 (76%);100ML BOTTLE 200 ML IV (20:31)
[2024-11-24] MEDS: 0.9 % SODIUM CHLORIDE 50 ML VIAL 100 ML IV (20:31)
[2024-11-24] MEDS: HEPARIN SODIUM 5,000 UNIT/ML VIAL 10000 UNIT IV (20:38)
[2024-11-24] MEDS: HEPARIN SODIUM,PORCINE/D5W 500 ML 40 UNIT IV (20:38)
--- NOTE | 2024-11-24 21:04 | PC.NURSE ---
Called transfer center for a transfer said they would call back
[2024-11-24 22:48] LABS: Troponin I < 0.01 ng/ml (0.00-0.034)
[2024-11-24 23:10] LABS: Lactic Acid 2.7 mmol/L (0.7-2.1)
[2024-11-25 02:59] LABS: Reflex Lactic Add Lactic Reflex
== END 2024-11-24 23:52 | disposition short-term general hospital (02) ==
PROVIDERS: Emergency Provider Emergency Medicine; PCP Nurse Practitioner Family
DX: I99.8 Other disorder of circulatory system (principal); R10.2 Pelvic and perineal pain
CPT/HCPCS: 71275; 75635; 80053; 81001; 82550; 83605; 83735; 83880; 84436; 84443; 84484; 85025; 85610; 85730; 93005; 96361; 96374; 96375; 99291; J1171; J1644; J1885; J2405; J7030; Q9967

== ENCOUNTER 2024-12-27 08:31 | Day surgery (SDC) | payer BC, SELFPAY ==
[2024-12-27] VITALS (11 sets, daily range): BP systolic 94–138; BP diastolic 50–90; PULSE 76–88; RESP 18–20; O2SAT 91–99; BMI 37.6
--- NOTE | 2024-12-27 07:18 | IR_ITS ---
APPROVED REPORT Patient Location: Outpatient PROCEDURES Pigtail catheter placement into the abdominal aorta Abdominal aortography Positioning of the catheter in the abdominal aorta Bilateral iliofemoral runoff Informed consent was obtained prior to the procedure. COMPLICATIONS NONE Estimated Blood Loss: LESS THAN 10 ML TECHNIQUE Percent lidocaine used anesthetize right groin the right femoral was accessed via the center technique and a 5 Fijian sheath is placed in the right femoral artery. A pigtail catheter advanced to the abdominal aorta and abdominal aortography was performed. The catheter was then repositioned and bilateral iliofemoral runoff was performed. At the end the procedure the apparatus was removed the patient was transferred to the postop putting in stable condition for sheath removal ANGIOGRAPHIC RESULTS Distal abdominal aorta is widely patent Bilateral common internal and external iliac arteries are widely patent Right common femoral artery has 20% atheromatous plaque. The right profunda femoris artery has a proximal concentric 90% stenosis. The right superficial femoral artery has diffuse proximal and mid vessel 30 to 40% stenoses. The right popliteal artery is widely patent and gives rise to the anterior tibialis artery posterior tibialis artery and peroneal artery. There is two-vessel runoff into the right foot from the posterior and anterior tibialis artery Left common iliac artery is widely patent Left profunda femoris artery is patent Left superficial femoral artery is ostially occluded and occluded throughout its entire course. It reconstitutes into the mid popliteal artery at the pregeniculate level there is two-vessel runoff below the knee on the left side from the peroneal artery and anterior tibialis artery. IMPRESSION Chronically occluded left SFA which reconstitutes into the mid pregeniculate popliteal level with two-vessel runoff below the left knee Mild to moderate atheromatous plaque throughout the right SFA as described above with two-vessel runoff below the knee on the right side PLAN 1. Recommend tobacco cessation 2. It is reasonable to refer patient for vascular surgery however I would prefer risk factor modification and medical management over surgical revascularization unless patient begins to experience [place] claudication class for 5 or 6 3. Xarelto 2.5 twice daily plus aspirin 81 mg daily 4. Strict glycemic control 5. As long as patient continues to smoke I would not recommend surgical revascularization unless recalcitrant and intolerable claudication occurs Electronically signed by : Cholo Gutierrez MD 12/27/2024 14:28:55
[2024-12-27 09:03] LABS: Basophils # 0.1 K/mm3 (0-0.2); Basophils % 0.9 % (0.1-2.0); Eosinophils # 0.3 K/mm3 (0.0-0.4); Eosinophils % 2.5 % (0.1-12.0); Hematocrit 46.8 % (37.0-47.0); Hemoglobin 15.8 g/dL (12.2-16.2); Lymphocytes # 3.3 K/mm3 (0.7-4.5); Lymphocytes % 31.6 % (10-50); Mean Corpuscular HGB Conc 33.8 g/dL (31.8-35.4); Mean Corpuscular Hemoglobin 29.5 pg (27.0-31.2); Mean Corpuscular Volume 87.3 fl (81-99); Mean Platelet Volume 10.1 fl (7.4-10.4); Monocytes # 0.7 K/mm3 (0.1-1.0); Monocytes % 6.9 % (1.7-9.3); Neutrophils % 57.9 % (37.0-80.0); Platelet Count 366 K/mm3 (142-424); Red Blood Count 5.36 M/mm3 (4.20-5.40); Red Cell Distribution Width 12.6 % (11.5-17.5); White Blood Count 10.4 K/mm3 (4.8-10.8)
[2024-12-27 09:12] LABS: Chloride 106 mmol/L (98-107); Potassium 4.5 mmoL/L (3.5-5.1); Sodium 141 mmol/L (136-145)
[2024-12-27 09:15] LABS: Anion Gap 14.5 mEq/L (5-15); Blood Urea Nitrogen 17 mg/dl (7-17); Carbon Dioxide 25 mmol/L (22.0-30.0); Creatinine Clearance Estimated 141 mL/min (50-200); Estimated Glomerular Filt Rate 67 ml/min (>60); GFR (African American) 81 ML/MIN (>60)
[2024-12-27 09:16] LABS: Calcium 10.5 mg/dl (8.4-10.2); Glucose 248 mg/dl (74-100)
[2024-12-27] MEDS: LIDOCAINE 1% 10ML MDV 20 ML IJ (11:24)
[2024-12-27] MEDS: HEPARIN 1,000 UNITS/500ML NS (CATH LAB) 3000 UNIT IV (11:25)
[2024-12-27] MEDS: diphenhydrAMINE 50MG/ML VIAL 50 MG IV (11:25)
[2024-12-27] MEDS: 0.9 % SODIUM CHLORIDE 500 ML 25 ML IV (11:26)
[2024-12-27] MEDS: FENTANYL 100MCG/2ML VIAL 50 MCG IV (12:05)
[2024-12-27] MEDS: MIDAZOLAM HCL 1MG/ML 5ML VIAL 1 MG IV (12:05)
[2024-12-27] MEDS: IOPAMIDOL-370 (76%);100ML BOTTLE 170 ML IV (14:56)
== END 2024-12-27 15:11 | disposition home or self-care (01) ==
LOC: CATHLAB 08:32
PROVIDERS: PCP Nurse Practitioner Family; Visit Provider Internal Medicine
DX: I70.213 Atherosclerosis of native arteries of extremities with intermittent claudication, bilateral legs (principal); I77.1 Stricture of artery; E78.5 Hyperlipidemia, unspecified; F17.210 Nicotine dependence, cigarettes, uncomplicated; Z82.49 Family history of ischemic heart disease and other diseases of the circulatory system; I10 Essential (primary) hypertension; E11.40 Type 2 diabetes mellitus with diabetic neuropathy, unspecified; Z79.899 Other long term (current) drug therapy; Z95.820 Peripheral vascular angioplasty status with implants and grafts; Z79.84 Long term (current) use of oral hypoglycemic drugs
CPT/HCPCS: 36200; 75625; 75716; 80048; 85025; 99152; 99153; C1725; C1769; C1894; J1200; J1644; J3010; Q9967

== ENCOUNTER 2025-07-25 14:01 | Outpatient (CLI) | payer BC, SELFPAY ==
--- OUTSIDE RECORDS SUMMARY | 2025-07-25 14:04 | XMS_ITS | Referral Summary ---
Author Organization [facility] ([place], [place], [place], [place]) Address [address] [place] [address] Care Team Providers Care Engineering Writer Name Role Phone Milady Grullon Primary Care Provider Allergies No known active allergies Medications ALPRAZolam (XANAX) 0.25 MG tablet Take 1 tablet (0.25 mg total) by mouth daily as needed for Anxiety. Active fluticasone propionate (FLONASE) 50 mcg/actuation nasal spray 2 sprays by Nasal route daily as needed for Rhinitis. Active gabapentin (NEURONTIN) 400 MG capsule Take 1 capsule (400 mg total) by mouth 3 (three) times daily. Active metoprolol succinate (TOPROL-XL) 50 MG 24 hr tablet Take 1 tablet (50 mg total) by mouth daily. Active albuterol HFA (VENTOLIN HFA) 90 mcg/actuation inhaler Inhale 2 puffs by mouth via inhaler every 6 (six) hours as needed for Wheezing. Active buPROPion (WELLBUTRIN SR) 150 MG 12 hr tablet Take 1 tablet (150 mg total) by mouth 2 (two) times daily. Active dulaglutide (Trulicity) 1.5 mg/0.5 mL syringe Inject 0.75 mg subcutaneously once a week. Active empagliflozin (Jardiance) 10 mg tablet Take 1 tablet (10 mg total) by mouth daily. Active lisinopriL (PRINIVIL,ZEST RIL) 5 MG tablet Take 1 tablet (5 mg total) by mouth daily. Active metFORMIN (GLUCOPHAGE-XR ) 500 MG 24 hr tablet Take 1 tablet (500 mg total) by mouth 2 (two) times daily. Active rivaroxaban (Xarelto) 2.5 mg tablet Take 1 tablet (2.5 mg total) by mouth 2 (two) times daily. Active albuterol (PROVENTIL) 2.5 mg /3 mL (0.083 %) nebulizer solution INHALE THREE (3) ML THREE (3) TIMES A DAY BY NEBULIZATION ROUTE NEEDED. Active esomeprazole (NexIUM) 40 MG capsule Take 1 capsule (40 mg total) by mouth daily. 3 Active simvastatin (ZOCOR) 20 MG tablet Take 2 tablets (40 mg total) by mouth daily. 3 Active azelastine (Astepro Allergy) 205.5 mcg (0.15 %) [place] 3 Active Trelegy Ellipta 100-62.5-25 mcg DsDv INHALE ONE (1) PUFF EVERY DAY BY INHALATION ROUTE. 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 No 04/20/2023 Lack of Transportation (Non-Medical) Not on file 04/20/2023 Food Insecurity Answer Date Recorded Food run out past 12 months Not on file 10/02 Food did not last past 12 months Not on file 10/20/2023 Employment Answer Date Recorded Help finding and keeping a job Not on file 0 10/20/2023 Family and Community Support Answer Arpit e Recorded Help with Day to Day Activities Not on file 10/20/2023 Feeling Lonely or Isolated Not on file 10/20 Educational Attainment Answer Date Beni rded Speak language other than Polish at home Not on file 10/20/2023 Want help with school or training Not on file 10/20/2023 Substance Use Answer Date Recorded Used prescription meds for non-medical reasons N ot on file 10/20/2023 Used illegal drugs past 12 months Not on file 10/20/2023 Comments Unknown Sex and Gender Information Value Date Recorded Sex Assigned at Female 01/17/2024 12:55 PM CDT Legal Sex Female 5:43 PM CDT Gender Identity Female 01/17/2024 12:55 PM CDT Sexual Orientation Straight 01/17/2024 12 :55 PM CDT Last Filed Vital Signs Vital Sign Reading Time Taken Comments Blood Pressure 147/83 08/30/2023 2:00 PM EST Pulse 96 08/30/2023 2:05 PM EST Temperature 36.2 C (97.2 F) 08/30/2023 9:45 AM EST Respiratory Rate 16 08/30/2023 2:05 PM EST Oxygen Saturation 94% 08/30/2023 2:05 PM EST Inhaled Oxygen Concentration - - Weight 117.3 kg (258 lb 9.6 oz) 08/30/2023 6:00 AM EST Height 170.2 cm (5' 7 ) 08/30/2023 6:00 AM EST Body Mass Index 40.5 08/30/2023 6:00 AM EST Functional Status * Are you deaf or do you have serious difficulty hearing? Answer Date of Assessment Author No 04/21/2023 1:35 PM Louisa Pfeiffer RN * Are you blind or do you have serious difficulty seeing, even when wearing glasses? Answer Date of Assessment Author No 04/21/2023 1:35 PM Louisa Pfeiffer RN * Do you have serious difficulty walking or climbing stairs? Answer Date of Assessment Author No 04/21/2023 1:35 PM Louisa Pfeiffer RN * Do you have serious difficulty dressing or bathing? Answer Date of Assessment Author No 04/21/2023 1:35 PM Louisa Pfeiffer RN * Because of a physical, mental, or emotional condition, do you have serious difficulty doing errandsalone such as visiting the doctor? Answer Date of Assessment Author No 04/21/2023 1:35 PM CDT Fernando, Louisa zabeth, RN Mental Status * Because of a physical, mental, or emotional condition, do you have serious difficulty concentrating, remembering, or making decisions? (5 years old or older) Answer Entry Date Author No 04/21/2023 1:35 PM Louisa Pfeiffer RN Plan of Treatment Not on file Insurance BLUE CROSS/BLUE SHIELD Advance Directives For more information, please contact: [phone] * Full Code (Latest Code Status on File) Date Activated Date Inactivated Comments 08/30/2023 5:58 AM 08/31/2023 7:47 AM * Full Code Date Activated Date Inactivated Comments 04/20/2023 1:55 AM 04/21/2023 3:03 PM -Attempt Res uscitation if person has no pulse and is not breathing. -If no pulse or not breathing attempt CPR/CODE. -Call Rapid Response if patient is in distress. Care Teams Engineering Writer Relationship Specialty Start Date End Date Milady Grullon [address] [place] [address] PCP - General 08/22/23
--- OUTSIDE RECORDS SUMMARY | 2025-07-25 14:04 | XMS_ITS | Encounter Summary ---
Author Organization Healthcare Address [address] [place] [address] Care Team Providers Care Pole Sander Operator Name Role Phone Milady Grullon APRN Primary Care Provider [phone] Encounter Details Date Type Department Care Team ([facility] st Contact Info) Description 07/22/2024 Orders Only External Location [address] [place] [address] Milady Grullon APRN [address] [place], [place] [id number] Social History Tobacco Use Types Packs/Day Years Used Date Smoking Tobacco: Never Assessed Comments Unknown Sex and Gender Information Value Date Recorded Sex Assigned at Not on file Legal Sex Female 10:41 PM EDT Gender Identity Not on file Sexual Orientation Not on file documented as of this encounter Plan of Treatment Not on file documented as of this encounter Procedures Procedure Name Priority Date/Time Associated Diagnosis Comments MR OUTSIDE IMAGES 07/22/2024 9:24 AM EDT documented in this encounter Results * MR transfer of outside films (07/22/2024 9:24 AM EDT) Anatomical Region Laterality Modality Magnetic Resonan ce 07/22/2024 9:24 AM EDT Milady Grullon APRN IMG MRI PROCEDURES Final R esult documented in this encounter Visit Diagnoses Not on filedocumented in this encounter Care Teams Pole Sander Operator Relationship Specialty Start Date End Date Milady Grullon APRN [address] [place] [address] [place] [address] PCP - General 09/17/24 documented as of this encounter
--- OUTSIDE RECORDS SUMMARY | 2025-07-25 14:04 | XMS_ITS | Encounter Summary ---
Author Organization Healthcare Address [address] [place] [address] Care Team Providers Care Hand Wood Sander Name Role Phone Milady Grullon APRN Primary Care Provider [phone] Encounter Details Date Type Department Care Team ([facility] st Contact Info) Description 07/22/2024 Orders Only External Location [address] [place] [address] Provider, External Social History Tobacco Use Types Packs/Day Years [...] Name Priority Date/Time Associated Diagnosis Comments MR NEURO OUTSIDE IMAGES 07/22/2024 9:24 AM EDT documented in this encounter Results * MR NEURO OUTSIDE IMAGES (07/22/2024 9:24 AM EDT) Anatomical Region Laterality Modality Magnetic Resonan ce 07/22/2024 9:24 AM EDT us External Provider IMG MRI PROCEDURES Final Resul t documented in this encounter Visit Diagnoses Not on filedocumented in this encounter Care Teams Hand Wood Sander Relationship Specialty Start Date End Date Milady Grullon APRN [address] [place] [address] PCP - General 09/17/24 documented as of this encounter
--- OUTSIDE RECORDS SUMMARY | 2025-07-25 14:04 | XMS_ITS | Clinical Summary ---
Author Organization [facility] Address [address] [place] [address] Care Team Providers Care Napper Grinder Name Role Phone Milady Grullon REFRIGERATING ENGINEER Primary Care Provider [phone] Allergies No known active allergies Medications lisinopril 5 MG tablet Take 1 tablet (5 mg) by mouth 1 (one) time each day. Active Xarelto 2.5 MG tablet 1 tablet (2.5 mg) 2 (two) times a day. 4 Active metoprolol succinate XL (Toprol-XL) 50 MG 24 hr tablet Take 1 tablet (50 mg) by mouth 1 (one) time each day. Active buPROPion SR (Wellbutrin SR) 150 MG 12 hr tablet Take 1 tablet (150 mg) by mouth 2 (two) times a day. Active esomeprazole (NexIUM) [address] capsule Take 1 capsule (40 mg) by mouth 1 (one) time each day. 4 Active metFORMIN (Glucophage) 1000 MG tablet Take 1 tablet (1,000 mg) by mouth 2 (two) times a day with meals. 4 Active Jardiance 10 MG Take 1 tablet (10 mg) by mouth 1 (one) time each day. Active gabapentin (Neurontin) 400 MG capsule Take 1 capsule (400 mg) by mouth 3 (three) times a day. 4 Active metoclopramide (Reglan) 10 MG tablet Take 1 tablet (10 mg) by mouth 4 (four) times a day. Active atorvastatin (Lipitor) 40 MG tablet Take 1 tablet (40 mg) by mouth 1 (one) time each day. 4 Active ALPRAZolam (Xanax) 0.25 MG tablet Take 1 tablet (0.25 mg) by mouth at night if needed for anxiety or sleep. Active Trelegy Ellipta 200-62.5-25 MCG/ACT aerosol powder INHALE ONE (1) PUFF ONCE A DAY USE ACCORDING TO ASTHMA ACTION PLAN. RINSE MOUTH OUT AFTER EACH USE. Active Social History Tobacco Use Types Packs/Day Years Used Date Smoking Tobacco: Every Day Cigarettes Passive Smoke Exposure: Current Smokeless Tobacco: Never Tobacco Cessation:Ready to Q uit: Not Asked; Counseling Given: Not Answered PHQ-2 Answer Date Recorded Patient Health Questionnaire-2 Score 6 09/17/2024 Comments Unknown Sex and Gender Information Value Date Recorded Sex Assigned at Not on file Legal Sex Female 10:41 PM EDT Gender Identity Not on file Sexual Orientation Not on file Last Filed Vital Signs Vital Sign Reading Time Taken Comments Blood Pressure 105/73 11/25/2024 4:21 AM EST Pulse 96 11/25/2024 4:21 AM EST Temperature 36.6 C (97.8 F) 11/25/2024 4:21 AM EST Respiratory Rate 19 11/25/2024 4:21 AM EST Oxygen Saturation 95% 11/25/2024 4:21 AM EST Inhaled Oxygen Concentration - - Weight 117 kg (257 lb 15 oz) 11/24/2024 11:00 PM EST Height 170.2 cm (5' 7 ) 09/17/2024 11:19 AM EST Body Mass Index 40.4 09/17/2024 11:19 AM EST Plan of Treatment Health Maintenance Due Date Last Done Comments [facility]-Diabetes: Hemoglobin A1C 1977 [facility]-/Child/Adol SDOH Screenings 1977 Diabetes: Dental Exam 1987 [facility]- SDOH Screenings 1995 [facility]-Adult SDOH Screenings 1995 [facility]-Hepatitis B Vaccines (1 of 3 - 19+ 3-dose series) 1996 [facility]-Pneumococcal Vaccine: Pediatrics (0 to 5 Years) and At-Risk Patients (6 to 49 Years) (1 of 2 - PCV) 1996 [facility]-Pap Smear 1998 [facility]-DTaP,Tdap,and Td Vaccine s (1 - Tdap) 01/11/2001 01/10/2001 [facility]-Cervical Cancer Screening 2007 [facility]-HPV/Cotest 2007 CT Colonography 2022 Colonoscopy 2022 FIT-DNA 2022 FIT 2022 FOBT 2022 Sigmoidoscopy 2022 [facility]-Colorectal Cancer Screening 2022 [id number] Vaccine (1 - 20 24-25 season) 2025 [facility]-Influenza Vaccine (#1) 2025 [facility]-Depression Screening 09/17/2025 09/17/2024 [facility]-Zoster Vaccines (1 of 2) 2027 [facility]-Obesity Intervention Completed 09/17/2024 [facility]-HIV Screening Completed 11/25/2024 [facility]-Hepatitis C Screening Completed 11/25/2024 HPV Vaccines Aged Out No longer eligi ble based on patient's age to complete this topic [facility]-HIB Vaccines Aged Out No longer e ligible based on patient's age to complete this topic [facility]-Hepatitis A Vaccines Aged Out No longer eligible based on patient's age to complete this topic [facility]-IPV Vaccines Aged Out No longer e ligible based on patient's age to complete this topic [facility]-Rotavirus Vaccines Aged Out No lo nger eligible based on patient's age to complete this topic Procedures Procedure Name Priority Date/Time Associated Diagnosis Comments ED HIV 1/2 ANTIBODY/ANTIGEN SCREEN WITH REFLEX TO HIV I/II DIFFERENTIATION STAT 11/25/2024 3:50 AM EST HEPATITIS C ANTIBODY - ED W/REFLEX TO HCV QUANT PCR STAT 11/25/2024 1:23 AM EST from Last 3 Months or Most Recently Relevant to Health Maintenance Results * ED HIV 1/2 Antibody/Antigen Screen w/Reflex to HIV 1/2 Differentiation (11/25/2024 3:50 AM EST) HIV 1 & 2 Antibody/Antigen Screen Non Reactive Non Reactive 11/25/2024 5:04 AM EST [facility] Comment:Screening for HIV 1 & 2 antibodies, and P24 antigen is NONREACTIVE. No confirmatory testing is required. Blood Venous blood specimen / Unknown Venipuncture / Unknown 11/25/2024 3:50 AM EST 11/25/2024 4:00 AM EST Mynor Parisi MD LAB BLOOD ORDERABLES Final Result Performing Organization Address City/[facility]/ZIP Co de Phone Number [facility] [address] [place] [address] * Hepatitis C Antibody - ED (11/25/2024 1:23 AM EST) Hepatitis C Antibody Negative Negative 11/25/2024 2:35 AM EST [facility] Blood Venous blood specimen / Unknown Venipuncture / Unknown 11/25/2024 1:23 AM EST 11/25/2024 1:44 AM EST Mynor Parisi MD LAB BLOOD ORDERABLES Final Result Performing Organization Address City/[facility] Co de Phone Number [facility] [address] [place] [address] from Last 3 Months or Most Recently Relevant to Health Maintenance Insurance ANTH Care Teams Napper Grinder Relationship Specialty Start Date End Date Milady Grullon APRN [address] [place] [address] PCP - General 09/17/24
--- OUTSIDE RECORDS SUMMARY | 2025-07-25 14:04 | XMS_ITS | Clinical Summary ---
Author Organization [employer] ([place], [place], [place], [place]) Address [address] [place] [address] Care Team Providers Care Payroll Tax Analyst Name Role Phone Milady Grullon Primary Care Provider [phone] Allergies No known active allergies Medications ALPRAZolam [...] azelastine (Astepro Allergy) 205.5 mcg (0.15 %) [place] 3 Active Trelegy Ellipta 100-62.5-25 mcg DsDv [...] Date Beni rded Speak language other than Maltese at home Not on file 10/20/2023 Want [...] Mass Index 40.5 08/30/2023 6:00 AM EST Plan of Treatment Health Maintenance Due Date Last Done Comments CT Colonography 1977 Colonoscopy 1977 Colorectal Cancer Screening 1977 FOBT/FIT 1977 Fit-DNA (Cologuard) 1977 Sigmoidoscopy 1977 Depression Screening (12+) 1989 HIV Screening 1992 Hepatitis C Screening 1995 Pneumococcal Vaccine: 0-49 Years (1 of 2 - PCV) 1995 Pap Smear 1998 DTAP/TDAP/TD VACCINES (2 - Td or Tdap) 01/10/2011 Breast Cancer Screening 2017 Lipid Panel 2022 Tobacco Cessation Counseling and Screening (12+) 08/3008/30/2023 COVID-19 VACCINE ( - season) 2025 Influenza Vaccine (#1) 2025 Insurance BLUE CROSS/BLUE SHIELD Advance Directives For more information, please contact: [phone] * Full Code (Latest Code Status on File) Date Activated Date Inactivated Comments 08/30/2023 5:58 AM 08/31/2023 7:47 AM * Full Code Date Activated Date Inactivated Comments 04/20/2023 1:55 AM 04/21/2023 3:03 PM -Attempt Res uscitation if person has no pulse and is not breathing. -If no pulse or not breathing attempt CPR/CODE. -Call Rapid Response if patient is in distress. Care Teams Payroll Tax Analyst Relationship Specialty Start Date End Date Milady Grullon [address] [place] [address] PCP - General 08/22/23
--- OUTSIDE RECORDS SUMMARY | 2025-07-25 14:04 | XMS_ITS | Clinical Summary ---
Author Organization [facility] Address [address] [facility] [place] [address] Phone Care Team Providers Care Cylinder Inspector Name Role Phone Unavailable Primary Care Provider Unavailabl e Family History Medical History Relation Name Comments Diabetes Father Heart Attack Father Skin Cancer Father 2-3 excised, fa ce and neck Breast Cancer Maternal Aunt 1 or brain? Lung Cancer Maternal Grandfather Breast Cancer Maternal Grandmother Prostate Cancer Maternal Uncle 1 JOVANNI gene mutation positive Mother Breast Cancer Mother Hypertension Mother Breast Cancer Paternal Aunt 1 Abnormal O'Hernandez glucose challenge test, antepartum Sister 1 Chikis Willams Abnormal ultrasound Sister 1 Chikis Екатерина Anxiety Sister 1 Chikis Willams BMI 38.0-38.9,adult Sister 1 Chikis Willams delivery delivered Sister 1 Chikismoriah Willams Chronic hypertension affecting Sister 1 Chikismoriah Willams Chronic hypertension with superimposed pre-eclampsia Sister 1 Chikis Екатерина Depression Sister 1 Chikis Екатерина Essential (primary) hypertension Sister 1 Chikis Екатерина Gallstones Sister 1 Chikis Екатерина High-risk in third trimester Sister 1 Chikismoriah Willams Missed Sister 1 Chikis Екатерина Poor growth affecting management of mother in second trimester Sister 1 Chikis Екатерина Poor growth affecting management of mother in third trimester Sister 1 Chikis Екатерина Post-operative nausea and vomiting Sister 1 Chikis Екатерина Pre-eclampsia Sister 1 Chikis Екатерина RUQ pain Sister 1 Chikis Екатерина Seizures (HCC) Sister 1 Chikis Willams Relation Name Status Comments Daughter Alive Father (Age 58) Maternal Aunt 1 Maternal Aunt 2 Alive Maternal Grandfather (Age 70's) Maternal Grandmother Maternal Uncle 1 Alive Maternal Uncle 2 Alive Maternal Uncle 3 Alive Mother Alive Niece Alive Paternal Aunt 1 Alive Paternal Aunt 2 Alive Paternal Aunt 3 Alive Paternal Aunt 4 Alive Paternal Grandfather Paternal Grandmother Paternal Uncle 1 Alive Paternal Uncle 2 Alive Sister 1 Chikis Willams Alive Sister 2 Alive Social History Tobacco Use Types Packs/Day Years Used Date Smoking Tobacco: Never Assessed Comments No Sex and Gender Information Value Date Recorded Sex Assigned at Not on file Legal Sex Female 11:44 AM EST Gender Identity Not on file Sexual Orientation Not on file Obstetrics History Para Term AB IAB SAB Ectopic Multiple Livin g Live Births 1 Last Filed Vital Signs Vital Sign Reading Time Taken Comments Blood Pressure - - Pulse - - Temperature - - Respiratory Rate - - Oxygen Saturation - - Inhaled Oxygen Concentration - - Weight 115.2 kg (254 lb) 12/02/2024 8:56 AM EST Height 172.7 cm (5' 8 ) 12/02/2024 8:56 AM EST Body Mass Index 38.62 12/02/2024 8:56 AM EST Plan of Treatment Health Maintenance Due Date Last Done Comments Annual Wellness Exam 1980 Hepatitis B Vaccine (1 of 3 - 19+ 3-dose series) 1996 Cervical Cancer Screening 1998 Pap Smear 1998 DTaP/TDaP/Td (1 - Tdap) 01/11/2001 01/10/2001 HPV/Pap Cotest 2007 Breast Cancer Screening 2017 Cologuard 2022 Colon Cancer Screening 2022 Colonoscopy 2022 FIT 2022 Sigmoidoscopy 2022 Virtual Colonography 2022 COVID-19 Vaccine (2024-2 6 season) 2025 Influenza Vaccine (#1) 2025 Meningococcal B Vaccine Aged Out No l onger eligible based on patient's age to complete this topic Pneumococcal Vaccine 0-49 Aged Out No longer eligible based on patient's age to complete this topic Insurance [facility] PPO
--- NOTE | 2025-07-25 14:05 | MM_ITS ---
PROCEDURE INFORMATION: Exam: MG Bilateral Screening 3D Mammography Exam date and time: 07/25/2025 2:35 PM Age: 50 years old Clinical indication: Screening examination TECHNIQUE: Imaging protocol: Bilateral Screening tomosynthesis and 2D mammography including computer-aided detection (CAD) when performed. COMPARISON: 1. MG MM DIG MAMM BI DX W/CAD 06/17/2024 1:57 PM 2. MG MM DIG MAMM DX UNILAT LT CAD 12/06/2023 1:58 PM FINDINGS: MAMMOGRAPHY: Breast composition: There are scattered areas of fibroglandular density. Mass: No new or suspicious mass. Architectural distortion: None. Calcifications: No suspicious calcifications. Asymmetric density: None. Skin thickening: None. Axillary adenopathy: None. IMPRESSION: No mammographic evidence of malignancy. Annual screening is recommended unless otherwise clinically indicated. ASSESSMENT: BI-RADS Category 1: Negative.
--- NOTE | 2025-07-25 14:05 | XR_ITS ---
FINAL REPORT CLINICAL HISTORY: neck pain and headaches COMPARISON: None FINDINGS: 5 views of the cervical spine were obtained. There is no fracture present. There is no malalignment. There is multilevel disc space narrowing most pronounced at C5-6. Reversal of the normal lordosis is noted. IMPRESSION: Degenerative changes at C5-6 and reversal of the normal lordosis. Reviewed, Interpreted and Dictated by Gustavo England MD Transcribed by Jamia Hull Authenticated and [facility]
== END 2025-07-25 23:59 | disposition home or self-care (01) ==
LOC: RAD 14:02
PROVIDERS: PCP Nurse Practitioner Family; Visit Provider Nurse Practitioner Family
DX: Z12.31 Encounter for screening mammogram for malignant neoplasm of breast (principal); M47.812 Spondylosis without myelopathy or radiculopathy, cervical region; M53.82 Other specified dorsopathies, cervical region; R92.323 Mammographic fibroglandular density, bilateral breasts
CPT/HCPCS: 72050; 77063; 77067